=== PATIENT | male | born 1955 | race Caucasian/White ===

== ENCOUNTER 2016-08-23 08:35 | Inpatient (IN) | payer OTHER ==
[2016-08-23 10:19] VITALS: BMI 24.7
--- NOTE | 2016-08-23 11:23 | HP ---
COWS - Scale Resting Pulse: 0= SC 80 or Below Sweatin= Chills/Flushing Restless Observation: 3= Extraneous Movement Pupil Size: 2= Moderately Dilated Bone or Joint Aches: 4=Acute Joint/Muscle Pain Runny Nose/ Eye Tearin= Nasal Congestion GI Upset > 30mins: 3= Vomiting/Diarrhea Tremor Observation: 2= Slight Tremor Visible Yawning Observation: 1= 1-2x During Session Anxiety or Irritability: 1=Feels Anxious/Irritable Goose Flesh Skin: 0=Smooth Skin COWS Score: 18 Admission ROS S - HPI Chief Complaint: DETOX TX FOR HEROIN DEPENDENCE Allergies/Adverse Reactions: Allergies Allergy/AdvReac Type Severity Reaction Status Date / Time No Known Allergies Allergy Verified 08/23/16 10:07 History of Present Illness: 61 Y/O H/M WITH A HX OF HEROIN DEPENDENCE SEEKING DETOX [place]. Exam Limitations: No Limitations - Ebola screening Have you traveled outside of the country in the last 21 days: No Have you had contact with anyone from an Ebola affected area: No Have you been sick,other than usual withdrawal symptoms: No Do you have a fever: No - Review of Systems Constitutional: Chills, Loss of Appetite, Night Sweats, Changes in sleep, Unintentional Wgt. Loss EENT: reports: Blurred Vision (WEARS GLASSES), Tearing, Nose Congestion Respiratory: reports: No Symptoms reported Cardiac: reports: Lightheadedness GI: reports: Diarrhea, Nausea, Poor Appetite, Poor Fluid Intake, Vomiting, Abdominal cramping : reports: Dysuria Musculoskeletal: reports: Back Pain, Joint Pain, Muscle Pain Integumentary: reports: Bruising (IV DRUG TRACKS ON BOTH FOREARMS) Neuro: reports: Headache, Tremors, Unsteady Gait, Dizziness Endocrine: reports: No Symptoms Reported Hematology: reports: No Symptoms Reported Psychiatric: reports: Orientated x3, Agitated, Anxious Other Systems: Reviewed and Negative Patient History - Patient Medical History Hx Anemia: No Hx Asthma: No Hx Chronic Obstructive Pulmonary Disease (COPD): No Hx Cardiac Disorders: Yes ([place] X 4 ) Hx Hypertension: Yes (SOMETIMES LOW BP) Hx Hypercholesterolemia: No HX Cerebrovascular Accident: No Hx Seizures: No Hx Diabetes: No Hx Gastrointestinal Disorders: No Hx Genitourinary Disorders: No Hx Sexually Transmitted Disorders: No Hx Renal Disease (ESRD): No Hx Thyroid Disease: No Hx Human Immunodeficiency Virus (HIV): Yes (SINCE 1994;ON MED) Hx Hepatitis C: Yes (TREATED;UNDETECTABLE.) Hx Depression: No Hx Suicide Attempt: No (DENIES) Hx Schizophrenia: No - Patient Surgical History Past Surgical History: No Hx Neurologic Surgery: No Hx Cataract Extraction: No Hx Cardiac Surgery: No Hx Lung Surgery: No Hx Breast Surgery: No Hx Breast Biopsy: No Hx Abdominal Surgery: No Hx Appendectomy: No Hx Cholecystectomy: No Hx Genitourinary Surgery: No Hx Orthopedic Surgery: No Anesthesia Reaction: No - PPD History Previous Implant?: Yes Documented Results: Negative w/o proof Implanted On Prior R Admission?: No PPD to be Administered?: Yes - Reproductive History Patient is a Female of Child Bearing Age (11 -55 yrs old): No (MALE) - Smoking Cessation Smoking history: Current every day smoker Have you smoked in the past 12 months: Yes Aproximately how many cigarettes per day: 7 Hx Chewing Tobacco Use: No Initiated information on smoking cessation: Yes 'Breaking Loose' booklet given: 08/23/16 - Substance & Tx. History Hx Alcohol Use: No Hx Substance Use: Yes (HEROIN) Substance Use Type: Heroin Hx Substance Use Treatment: Yes ([facility] DETOX) - Substances Abused Heroin Route: Injection Frequency: Daily Amount used: 7-2 bags Age of first use: 17 Date of Last Use: 08/22/16 Family Disease History - Family Disease History Family Disease History: Diabetes: Father (HTN-), Mother (HTN-), Heart Disease: Grandparent (), Other: Father, Mother Admission Physical Exam S - Vital Signs Vital Signs: Vital Signs - 24 hr 08/23/16 10:10 Temperature 97.5 F L Pulse Rate 73 Respiratory 20 Rate Blood Pressure 106/63 - Physical General Appearance: Yes: Moderate Distress, Irritable, Anxious, Other HEENTM: Yes: EOMI, Normocephalic, MICHELLE, Pharynx Normal, Nasal Congestion, Rhinorrhea Respiratory: Yes: Chest Non-Tender, Lungs Clear, Normal Breath Sounds, No Respiratory Distress Neck: Yes: Supple, Trachea in good position Breast: Yes: Breast Exam Deferred Cardiology: Yes: Regular Rhythm, Regular Rate, S1, S2 Abdominal: Yes: Normal Bowel Sounds, Non Tender, Soft Genitourinary: Yes: Other (N/C) Back: Yes: Within Normal Limits Musculoskeletal: Yes: full range of Motion, Gait Steady Extremities: Yes: Normal Range of Motion, Non-Tender Neurological: Yes: 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 intact, Fully Oriented, Alert Integumentary: Yes: Dry, Warm, Track Chavez (BOTH FOREARMS.) Lymphatic: Yes: Within Normal Limits - Diagnostic (1) Opioid dependence with withdrawal Current Visit: Yes Status: Acute (2) History of hepatitis C Current Visit: Yes Status: Resolved (3) HIV (human immunodeficiency virus infection) Current Visit: Yes Status: Acute (4) Weight loss Current Visit: Yes Status: Acute (5) Hx of myocardial infarction Current Visit: Yes Status: Resolved Cleared for Admission [facility] - Detox or Rehab Detox Regimen/Protocol: Methadone [facility] Breath Alcohol Content Breath Alcohol Content: 0 Urine Drug Screen - Results Drug Screen Negative: No Urine Drug Screen Results: OPI-Opiates
[2016-08-23] MEDS ORDERED: ACETAMINOPHEN 325 MG TABLET (FP) PO PRN (11:35)
[2016-08-23] MEDS ORDERED: MENTHOL/PHENOL 1 EACH UD MM PRN (11:35)
[2016-08-23] MEDS ORDERED: NICOTINE POLACRILEX 2 MG GUM BUC PRN (11:35)
[2016-08-23] MEDS ORDERED: MAG HYDROX/AL HYDROX/SIMETH 30 ML UNIT-DOSE CUP PO PRN (11:35)
[2016-08-23] MEDS ORDERED: guaiFENesin/D-METHORPHAN HB 10 ML UNIT-DOSE CUPS PO PRN (11:35)
[2016-08-23] MEDS ORDERED: MAGNESIUM CITRATE 300 ML BOTTLE PO PRN (11:35)
[2016-08-23] MEDS ORDERED: IBUPROFEN 400 MG TABLET (FP) PO PRN (11:35)
[2016-08-23] MEDS ORDERED: P-EPHED 60MG/TRIPROLIDI 2.5MG TABLET PO PRN (11:35)
[2016-08-23] MEDS ORDERED: MAGNESIUM HYDROX 2400MG/30ML ORAL SUSPENSION 30 ML CUP PO PRN (11:35)
[2016-08-23] MEDS ORDERED: LOPERAMIDE HCL 2 MG CAPSULE PO PRN (11:35)
[2016-08-23] MEDS ORDERED: NITROGLYCERIN SUBLINGUAL 1/150 0.4 MG TAB SL SCH (11:45)
[2016-08-23] MEDS ORDERED: METHADONE HCL 10 MG TABLET (FOR DETOX USE ONLY) PO ONE ×2 (12:02→23:00)
[2016-08-23] MEDS: diazePAM 5 MG TABLET PO PRN ×2 (13:29→22:33)
[2016-08-23] MEDS: NICOTINE 14 MG/24 HOURS TOPICAL PATCH TD SCH (13:30)
[2016-08-23] MEDS: DARUNAVIR ETHANOLATE 600 MG TAB PO SCH (16:50)
[2016-08-23] MEDS: RITONAVIR 100 MG TABLET PO SCH (16:50)
[2016-08-23 19:56] LABS: URINE APPEARANCE CLEAR; URINE BILIRUBIN NEGATIVE (NEGATIVE); URINE BLOOD NEGATIVE (NEGATIVE); URINE COLOR STRAW; URINE GLUCOSE (UA) 1+ (NEGATIVE); URINE KETONE NEGATIVE (NEGATIVE); URINE LEUK ESTERASE NEGATIVE (NEGATIVE); URINE NITRITE NEGATIVE (NEGATIVE); URINE PROTEIN NEGATIVE (NEGATIVE); URINE UROBILINOGEN NEGATIVE E.U./dl (0.2-1.0)
[2016-08-23] MEDS: THIAMINE HCL 100 MG TABLET (FP) PO SCH (22:31)
[2016-08-23] MEDS: MARAVIROC 150 MG TAB PO SCH (22:31)
[2016-08-23] MEDS: ATORVASTATIN CA 20 MG TABLET (FP) PO SCH (22:32)
[2016-08-23] MEDS: RALTEGRAVIR POTASSIUM 400 MG TAB PO SCH (22:32)
[2016-08-23] MEDS: AMMONIUM LACTATE 12% LOTION 225 GM BOTTLE TP SCH (22:32)
[2016-08-23] MEDS: METOPROLOL TARTRATE 50 MG TABLET (FP) PO SCH (22:32)
--- NOTE | 2016-08-24 01:53 | PN ---
[facility] Progress Note (SOAP) Subjective: PT. C/O LEFT-SIDED ACHING CHEST PAIN X 1HR . Objective: 08/24/16 01:39 VS: 95/66, P. 73, SaO2: 100% ON ROOM AIR EKG: NSR ANTEROSEPTAL INFARCT Assessment: 08/24/16 02:05 PT. IS WAS FOUND IN BED, ALERT AND ORIENTED X 3 PAIN IS NON-RADIATING NO DYSPNEA, DIAPHORESIS OR BRUISING NOTED DENIES NAUSEA Plan: RN TO ADMINISTER NITROSTAT CONTINUE TO MONITOR
--- NOTE | 2016-08-24 07:21 | PN ---
[facility] Progress Note Note: VS STABLE NO COMPLAINTS OF CP REPORTED. Last Vital Signs Temp Pulse Resp BP Pulse Ox 97.3 F L 68 16 94/64 08/24/16 06:27 08/24/16 06:27 08/24/16 06:27 08/24/16 06:27
[2016-08-24] MEDS: RITONAVIR 100 MG TABLET PO SCH ×2 (08:50→18:23)
[2016-08-24] MEDS: DARUNAVIR ETHANOLATE 600 MG TAB PO SCH ×2 (08:50→18:23)
[2016-08-24] MEDS ORDERED: METHADONE HCL 10 MG TABLET (FOR DETOX USE ONLY) PO ONE (10:00)
[2016-08-24] MEDS ORDERED: FENOFIBRATE NANOCRYSTALLIZED 54 MG PO SCH (10:00)
[2016-08-24 10:48] LABS: MCHC 34.1 g/dl (32.0-35.9); MEAN CELL VOLUME 87.8 fl (80-96); MEAN PLT VOLUME 10.7 fl (7.5-11.1); PLATELET COUNT 167 K/MM3 (134-434); RDW 13.8 % (11.9-15.9); WHITE BLOOD COUNT 5.6 K/mm3 (4.0-10.0)
[2016-08-24] MEDS: PRENATAL VITAMINS W/ FOLIC ACID TABLET (FP) PO SCH (10:49)
[2016-08-24] MEDS: CLOPIDOGREL BISULFATE 75 MG TABLET (FP) PO SCH (10:49)
[2016-08-24] MEDS: RALTEGRAVIR POTASSIUM 400 MG TAB PO SCH ×2 (10:49→22:31)
[2016-08-24] MEDS: ASPIRIN 81 MG CHEWABLE TABLETS PO SCH (10:49)
[2016-08-24] MEDS: METOPROLOL TARTRATE 50 MG TABLET (FP) PO SCH ×2 (10:51→22:30)
[2016-08-24] MEDS: AMMONIUM LACTATE 12% LOTION 225 GM BOTTLE TP SCH ×2 (10:51→22:31)
[2016-08-24] MEDS: MARAVIROC 150 MG TAB PO SCH ×2 (10:51→22:31)
[2016-08-24] MEDS: LISINOPRIL 5 MG TABLET (FP) PO SCH (10:51)
[2016-08-24] MEDS: NICOTINE 14 MG/24 HOURS TOPICAL PATCH TD SCH (10:53)
[2016-08-24 11:15] LABS: SICKLE CELL SCREEN POSITIVE (NEGATIVE)
[2016-08-24 11:29] LABS: ALBUMIN 3.8 g/dl (3.4-5.0); BILIRUBIN,TOTAL 0.3 mg/dL (0.2-1.0); CALCIUM 9.2 mg/dL (8.5-10.1); COCKROFT - GAULT 38.8; CREATININE 1.8 mg/dL (0.7-1.3); TOT PROT 6.9 g/dl (6.4-8.2)
--- NOTE | 2016-08-24 12:16 | PN ---
S COWS - Scale Resting Pulse: 0= [place] 80 or Below Sweatin=Flushed/Facial Moisture Restless Observation: 1= Difficult to Sit Still Pupil Size: 0= Normal to Room Light Bone or Joint Aches: 1= Mild Discomfort Runny Nose/ Eye Tearin= Nasal Congestion GI Upset > 30mins: 2= Nausea/Diarrhea Tremor Observation of Outstretched Hands: 2= Slight Tremor Visible Yawning Observation: 0= None Anxiety or Irritability: 1=Feels Anxious/Irritable Goose Flesh Skin: 3=Piloerection COWS Score: 13 [facility] Progress Note (SOAP) Subjective: sweats, anxiety, abdominal cramps Objective: 08/24/16 12:17 Vital Signs - 8 hr 08/24/16 06:27 Temperature 97.3 F L Pulse Rate 68 Respiratory 16 Rate Blood Pressure 94/64 Laboratory Last Values WBC 5.6 K/mm3 (4.0-10.0) 08/24/16 06:00 RBC 4.19 M/mm3 (4.00-5.60) 08/24/16 06:00 Hgb 12.5 GM/dL (11.7-16.9) 08/24/16 06:00 Hct 36.8 % (35.4-49) 08/24/16 06:00 MCV 87.8 fl (80-96) 08/24/16 06:00 MCHC 34.1 g/dl (32.0-35.9) 08/24/16 06:00 RDW 13.8 % (11.9-15.9) 08/24/16 06:00 Plt Count 167 K/MM3 (134-434) 08/24/16 06:00 MPV 10.7 fl (7.5-11.1) 08/24/16 06:00 Sickle Cell Screen Positive (NEGATIVE) 08/24/16 06:00 Sodium 136 mmol/L (136-145) 08/24/16 06:00 Potassium 4.8 mmol/L (3.5-5.1) 08/24/16 06:00 Chloride 102 mmol/L (98-107) 08/24/16 06:00 Carbon Dioxide 23 mmol/L (21-32) 08/24/16 06:00 Anion Gap 11 (8-16) 08/24/16 06:00 BUN 28 mg/dL (7-18) H 08/24/16 06:00 Creatinine 1.8 mg/dL (0.7-1.3) H 08/24/16 06:00 Creat Clearance w eGFR 38.30 (>60) 08/24/16 06:00 Random Glucose 83 mg/dL (74-106) 08/24/16 06:00 Calcium 9.2 mg/dL (8.5-10.1) 08/24/16 06:00 Total Bilirubin 0.3 mg/dL (0.2-1.0) 08/24/16 06:00 AST 24 U/L (15-37) 08/24/16 06:00 ALT 20 U/L (12-78) 08/24/16 06:00 Alkaline Phosphatase 71 U/L (45-117) 08/24/16 06:00 Total Protein 6.9 g/dl (6.4-8.2) 08/24/16 06:00 Albumin 3.8 g/dl (3.4-5.0) 08/24/16 06:00 Urine Color Straw 08/23/16 19:35 Urine Appearance Clear 08/23/16 19:35 Urine pH 5.0 (5.0-8.0) 08/23/16 19:35 Ur Specific [place] 1.010 (1.005-1.025) 08/23/16 19:35 Urine Protein Negative (NEGATIVE) 08/23/16 19:35 Urine Glucose (UA) 1+ (NEGATIVE) H 08/23/16 19:35 Urine Ketones Negative (NEGATIVE) 08/23/16 19:35 Urine Blood Negative (NEGATIVE) 08/23/16 19:35 Urine Nitrite Negative (NEGATIVE) 08/23/16 19:35 Urine Bilirubin Negative (NEGATIVE) 08/23/16 19:35 Urine Urobilinogen Negative E.U./dl (0.2-1.0) 08/23/16 19:35 Ur Leukocyte Esterase Negative (NEGATIVE) 08/23/16 19:35 labs noted Assessment: 08/24/16 12:17 withdrawal sx Plan: continue detox
--- NOTE | 2016-08-24 13:22 | PN ---
S Progress Note Note: Fenofibrate 54mg discontinued, not available in house, 45mg ordered
[2016-08-24] MEDS: FENOFIBRIC ACID 45 MG CAP PO SCH (14:30)
[2016-08-24] MEDS: THIAMINE HCL 100 MG TABLET (FP) PO SCH (22:30)
[2016-08-24] MEDS: ATORVASTATIN CA 20 MG TABLET (FP) PO SCH (22:30)
[2016-08-24] MEDS: diazePAM 5 MG TABLET PO PRN (22:30)
[2016-08-25] MEDS ORDERED: METHADONE HCL 5 MG TABLET (FOR DETOX USE ONLY) PO ONE (10:00)
[2016-08-25] MEDS: FENOFIBRIC ACID 45 MG CAP PO SCH (10:41)
[2016-08-25] MEDS: RITONAVIR 100 MG TABLET PO SCH ×2 (10:43→17:54)
[2016-08-25] MEDS: PRENATAL VITAMINS W/ FOLIC ACID TABLET (FP) PO SCH (10:43)
[2016-08-25] MEDS: RALTEGRAVIR POTASSIUM 400 MG TAB PO SCH ×2 (10:43→22:48)
[2016-08-25] MEDS: MARAVIROC 150 MG TAB PO SCH ×2 (10:43→22:48)
[2016-08-25] MEDS: DARUNAVIR ETHANOLATE 600 MG TAB PO SCH ×2 (10:43→17:54)
[2016-08-25] MEDS: METOPROLOL TARTRATE 50 MG TABLET (FP) PO SCH ×2 (10:43→22:48)
[2016-08-25] MEDS: ASPIRIN 81 MG CHEWABLE TABLETS PO SCH (10:43)
[2016-08-25] MEDS: CLOPIDOGREL BISULFATE 75 MG TABLET (FP) PO SCH (10:44)
[2016-08-25] MEDS: LISINOPRIL 5 MG TABLET (FP) PO SCH (10:44)
[2016-08-25] MEDS: AMMONIUM LACTATE 12% LOTION 225 GM BOTTLE TP SCH ×2 (10:45→23:22)
[2016-08-25] MEDS: NICOTINE 14 MG/24 HOURS TOPICAL PATCH TD SCH (10:45)
[2016-08-25] MEDS: diazePAM 5 MG TABLET PO PRN ×3 (10:46→22:51)
--- NOTE | 2016-08-25 14:47 | PN ---
S COWS - Scale Resting Pulse: 0= MD 80 or Below Sweatin= Chills/Flushing Restless Observation: 3= Extraneous Movement Pupil Size: 1= Pupils >than Normal Bone or Joint Aches: 2= Severe Diffuse Aches Runny Nose/ Eye Tearin= Runny Nose/Eyes GI Upset > 30mins: 2= Nausea/Diarrhea Tremor Observation of Outstretched Hands: 2= Slight Tremor Visible Yawning Observation: 1= 1-2x During Session Anxiety or Irritability: 2=Irritable/Anxious Goose Flesh Skin: 0=Smooth Skin COWS Score: 16 S Progress Note (SOAP) Subjective: Body ache, tremor, chills, nausea, interrupted sleep Objective: 08/25/16 14:43 Last Vital Signs Temp Pulse Resp BP Pulse Ox 96.6 F L 69 18 106/74 08/25/16 13:46 08/25/16 13:46 08/25/16 13:46 08/25/16 13:46 Laboratory Tests 08/23/16 08/24/16 08/24/16 19:35 06:00 06:00 WBC 5.6 RBC 4.19 Hgb 12.5 Hct 36.8 MCV 87.8 MCHC 34.1 RDW 13.8 Plt Count 167 MPV 10.7 Sickle Cell Screen Positive Sodium 136 Potassium 4.8 Chloride 102 Carbon Dioxide 23 Anion Gap 11 BUN 28 H Creatinine 1.8 H Creat Clearance w eGFR 38.30 Random Glucose 83 Calcium 9.2 Total Bilirubin 0.3 AST 24 ALT 20 Alkaline Phosphatase 71 Total Protein 6.9 Albumin 3.8 Urine Color Straw Urine Appearance Clear Urine pH 5.0 Ur Specific [place] 1.010 Urine Protein Negative Urine Glucose (UA) 1+ H Urine Ketones Negative Urine Blood Negative Urine Nitrite Negative Urine Bilirubin Negative Urine Urobilinogen Negative Ur Leukocyte Esterase Negative RPR Titer 08/24/16 06:00 WBC RBC Hgb Hct MCV MCHC RDW Plt Count MPV Sickle Cell Screen Sodium Potassium Chloride Carbon Dioxide Anion Gap BUN Creatinine Creat Clearance w eGFR Random Glucose Calcium Total Bilirubin AST ALT Alkaline Phosphatase Total Protein Albumin Urine Color Urine Appearance Urine pH Ur Specific [place] Urine Protein Urine Glucose (UA) Urine Ketones Urine Blood Urine Nitrite Urine Bilirubin Urine Urobilinogen Ur Leukocyte Esterase RPR Titer Nonreactive Labs noted: bun 28, serum creatinine 1.8, UA: 1+ glucose Assessment: 08/25/16 14:45 Withdrawal symptoms Noted with STACY and mild glycosuria Plan: Continue detox STACY: encouraged to drink lots of water (water pitcher provided), repeat BMP Glycosuria: encouraged to drink lots of water, repeat UA
[2016-08-25] MEDS: THIAMINE HCL 100 MG TABLET (FP) PO SCH (22:48)
[2016-08-25] MEDS: ATORVASTATIN CA 20 MG TABLET (FP) PO SCH (22:48)
[2016-08-25] MEDS: diphenhydrAMINE HCL 50 MG CAPSULE PO PRN (22:50)
--- NOTE | 2016-08-25 23:16 | EKG ---
Test Reason : Blood Pressure : / mmHG Vent. Rate : 058 BPM Atrial Rate : 058 BPM P-R Int : 132 ms QRS Dur : 088 ms QT Int : 386 ms P-R-T Axes : 081 065 064 degrees QTc Int : 378 ms SINUS BRADYCARDIA WITH SINUS ARRHYTHMIA SEPTAL INFARCT , AGE UNDETERMINED ABNORMAL ECG NO PREVIOUS ECGS AVAILABLE Confirmed by YOUSIF HODGE MD ([id number]) on 08/25/2016 11:15:52 PM Referred By: Confirmed By:YOUSIF HODGE MD
[2016-08-26] MEDS: diphenhydrAMINE HCL 50 MG CAPSULE PO PRN ×2 (00:39→22:27)
[2016-08-26] MEDS: diazePAM 5 MG TABLET PO PRN ×2 (03:16→10:32)
[2016-08-26] MEDS: DARUNAVIR ETHANOLATE 600 MG TAB PO SCH ×2 (09:10→17:22)
[2016-08-26] MEDS: RITONAVIR 100 MG TABLET PO SCH ×2 (09:10→17:22)
[2016-08-26] MEDS: RALTEGRAVIR POTASSIUM 400 MG TAB PO SCH ×2 (09:11→22:25)
[2016-08-26] MEDS ORDERED: METHADONE HCL 5 MG TABLET (FOR DETOX USE ONLY) PO ONE (10:00)
[2016-08-26] MEDS: METOPROLOL TARTRATE 50 MG TABLET (FP) PO SCH ×2 (10:32→22:25)
[2016-08-26] MEDS: LISINOPRIL 5 MG TABLET (FP) PO SCH (10:32)
[2016-08-26] MEDS: ASPIRIN 81 MG CHEWABLE TABLETS PO SCH (10:32)
[2016-08-26] MEDS: CLOPIDOGREL BISULFATE 75 MG TABLET (FP) PO SCH (10:32)
[2016-08-26] MEDS: PRENATAL VITAMINS W/ FOLIC ACID TABLET (FP) PO SCH (10:32)
[2016-08-26] MEDS: NICOTINE 14 MG/24 HOURS TOPICAL PATCH TD SCH (10:32)
[2016-08-26] MEDS: MARAVIROC 150 MG TAB PO SCH ×2 (10:33→22:27)
[2016-08-26] MEDS: FENOFIBRIC ACID 45 MG CAP PO SCH (10:33)
[2016-08-26] MEDS: AMMONIUM LACTATE 12% LOTION 225 GM BOTTLE TP SCH ×2 (12:18→22:25)
--- NOTE | 2016-08-26 13:52 | PN ---
[facility] Progress Note (SOAP) Subjective: Stomach ache, diarrhea, interrupted sleep, sweating, tremor Objective: 08/26/16 13:48 Last Vital Signs Temp Pulse Resp BP Pulse Ox 96.7 F L 75 18 101/68 08/26/16 13:26 08/26/16 13:26 08/26/16 13:26 08/26/16 13:26 Laboratory Tests 08/23/16 08/24/16 08/24/16 19:35 06:00 06:00 WBC 5.6 RBC 4.19 Hgb 12.5 Hct 36.8 MCV 87.8 MCHC 34.1 RDW 13.8 Plt Count 167 MPV 10.7 Sickle Cell Screen Positive Sodium 136 Potassium 4.8 Chloride 102 Carbon Dioxide 23 Anion Gap 11 BUN 28 H Creatinine 1.8 H Creat Clearance w eGFR 38.30 Random Glucose 83 Calcium 9.2 Total Bilirubin 0.3 AST 24 ALT 20 Alkaline Phosphatase 71 Total Protein 6.9 Albumin 3.8 Urine Color Straw Urine Appearance Clear Urine pH 5.0 Ur Specific [place] 1.010 Urine Protein Negative Urine Glucose (UA) 1+ H Urine Ketones Negative Urine Blood Negative Urine Nitrite Negative Urine Bilirubin Negative Urine Urobilinogen Negative Ur Leukocyte Esterase Negative RPR Titer 08/24/16 06:00 WBC RBC Hgb Hct MCV MCHC RDW Plt Count MPV Sickle Cell Screen Sodium Potassium Chloride Carbon Dioxide Anion Gap BUN Creatinine Creat Clearance w eGFR Random Glucose Calcium Total Bilirubin AST ALT Alkaline Phosphatase Total Protein Albumin Urine Color Urine Appearance Urine pH Ur Specific [place] Urine Protein Urine Glucose (UA) Urine Ketones Urine Blood Urine Nitrite Urine Bilirubin Urine Urobilinogen Ur Leukocyte Esterase RPR Titer Nonreactive Labs noted Assessment: 08/26/16 13:49 Withdrawal symptoms Noted with STACY and glycosuria Plan: Continue detox STACY: encouraged to drink more water, follow up on BMP result (in progress), hold lisinopril and HAART if serum creatinine still high Glycosuria: encouraged to drink more water, follow up on repeated UA (in progress)
[2016-08-26 14:18] LABS: URINE APPEARANCE CLEAR; URINE BILIRUBIN NEGATIVE (NEGATIVE); URINE BLOOD NEGATIVE (NEGATIVE); URINE COLOR COLORLESS; URINE GLUCOSE (UA) NEGATIVE (NEGATIVE); URINE KETONE NEGATIVE (NEGATIVE); URINE LEUK ESTERASE NEGATIVE (NEGATIVE); URINE NITRITE NEGATIVE (NEGATIVE); URINE PROTEIN NEGATIVE (NEGATIVE); URINE UROBILINOGEN NEGATIVE E.U./dl (0.2-1.0)
[2016-08-26 14:21] LABS: CALCIUM 8.4 mg/dL (8.5-10.1); COCKROFT - GAULT 43.65; CREATININE 1.6 mg/dL (0.7-1.3)
[2016-08-26] MEDS: THIAMINE HCL 100 MG TABLET (FP) PO SCH (22:25)
[2016-08-26] MEDS: ATORVASTATIN CA 20 MG TABLET (FP) PO SCH (22:25)
--- NOTE | 2016-08-27 08:56 | PN ---
[facility] Progress Note (SOAP) Subjective: Sweating,interrupted sleep,restless Objective: 08/27/16 08:55 Vital Signs - 8 hr 08/27/16 08/27/16 03:34 06:16 Temperature 98.4 F Pulse Rate 78 Respiratory 18 18 Rate Blood Pressure 98/69 Laboratory Last Values WBC 5.6 K/mm3 (4.0-10.0) 08/24/16 06:00 RBC 4.19 M/mm3 (4.00-5.60) 08/24/16 06:00 Hgb 12.5 GM/dL (11.7-16.9) 08/24/16 06:00 Hct 36.8 % (35.4-49) 08/24/16 06:00 MCV 87.8 fl (80-96) 08/24/16 06:00 MCHC 34.1 g/dl (32.0-35.9) 08/24/16 06:00 RDW 13.8 % (11.9-15.9) 08/24/16 06:00 Plt Count 167 K/MM3 (134-434) 08/24/16 06:00 MPV 10.7 fl (7.5-11.1) 08/24/16 06:00 Sickle Cell Screen Positive (NEGATIVE) 08/24/16 06:00 Sodium 138 mmol/L (136-145) 08/26/16 07:12 Potassium 4.6 mmol/L (3.5-5.1) 08/26/16 07:12 Chloride 101 mmol/L (98-107) 08/26/16 07:12 Carbon Dioxide 28 mmol/L (21-32) D 08/26/16 07:12 Anion Gap 9 (8-16) 08/26/16 07:12 BUN 15 mg/dL (7-18) D 08/26/16 07:12 Creatinine 1.6 mg/dL (0.7-1.3) H 08/26/16 07:12 Creat Clearance w eGFR 38.30 (>60) 08/24/16 06:00 Random Glucose 76 mg/dL (74-106) 08/26/16 07:12 Calcium 8.4 mg/dL (8.5-10.1) L 08/26/16 07:12 Total Bilirubin 0.3 mg/dL (0.2-1.0) 08/24/16 06:00 AST 24 U/L (15-37) 08/24/16 06:00 ALT 20 U/L (12-78) 08/24/16 06:00 Alkaline Phosphatase 71 U/L (45-117) 08/24/16 06:00 Total Protein 6.9 g/dl (6.4-8.2) 08/24/16 06:00 Albumin 3.8 g/dl (3.4-5.0) 08/24/16 06:00 Urine Color Colorless 08/26/16 08:00 Urine Appearance Clear 08/26/16 08:00 Urine pH 8.0 (5.0-8.0) D 08/26/16 08:00 Ur Specific [place] 1.015 (1.005-1.025) 08/26/16 08:00 Urine Protein Negative (NEGATIVE) 08/26/16 08:00 Urine Glucose (UA) Negative (NEGATIVE) 08/26/16 08:00 Urine Ketones Negative (NEGATIVE) 08/26/16 08:00 Urine Blood Negative (NEGATIVE) 08/26/16 08:00 Urine Nitrite Negative (NEGATIVE) 08/26/16 08:00 Urine Bilirubin Negative (NEGATIVE) 08/26/16 08:00 Urine Urobilinogen Negative E.U./dl (0.2-1.0) 08/26/16 08:00 Ur Leukocyte Esterase Negative (NEGATIVE) 08/26/16 08:00 RPR Titer Nonreactive (NONREACTIVE) 08/24/16 06:00 labs noted Assessment: 08/27/16 08:56 Withdrawal sx. Plan: Continue detox
[2016-08-27] MEDS: MARAVIROC 150 MG TAB PO SCH ×2 (09:58→22:36)
[2016-08-27] MEDS: RITONAVIR 100 MG TABLET PO SCH ×2 (09:58→17:14)
[2016-08-27] MEDS: PRENATAL VITAMINS W/ FOLIC ACID TABLET (FP) PO SCH (09:58)
[2016-08-27] MEDS: ASPIRIN 81 MG CHEWABLE TABLETS PO SCH (09:58)
[2016-08-27] MEDS: CLOPIDOGREL BISULFATE 75 MG TABLET (FP) PO SCH (09:59)
[2016-08-27] MEDS: RALTEGRAVIR POTASSIUM 400 MG TAB PO SCH ×2 (09:59→22:35)
[2016-08-27] MEDS: METOPROLOL TARTRATE 50 MG TABLET (FP) PO SCH ×2 (09:59→22:36)
[2016-08-27] MEDS: LISINOPRIL 5 MG TABLET (FP) PO SCH (09:59)
[2016-08-27] MEDS: hydrOXYzine PAMOATE 50 MG CAPSULE (FP) PO PRN (09:59)
[2016-08-27] MEDS: DARUNAVIR ETHANOLATE 600 MG TAB PO SCH ×2 (10:00→17:15)
[2016-08-27] MEDS ORDERED: METHADONE HCL 10 MG TABLET (FOR DETOX USE ONLY) PO ONE (10:00)
[2016-08-27] MEDS: FENOFIBRATE 54 MG PO SCH (10:01)
[2016-08-27] MEDS: NICOTINE 14 MG/24 HOURS TOPICAL PATCH TD SCH (10:01)
[2016-08-27] MEDS: AMMONIUM LACTATE 12% LOTION 225 GM BOTTLE TP SCH ×2 (10:01→22:36)
[2016-08-27] MEDS: ATORVASTATIN CA 20 MG TABLET (FP) PO SCH (22:35)
[2016-08-27] MEDS: THIAMINE HCL 100 MG TABLET (FP) PO SCH (22:35)
[2016-08-27] MEDS: diphenhydrAMINE HCL 50 MG CAPSULE PO PRN (22:37)
[2016-08-28] MEDS: hydrOXYzine PAMOATE 50 MG CAPSULE (FP) PO PRN (05:49)
[2016-08-28] MEDS ORDERED: METHADONE HCL 5 MG TABLET (FOR DETOX USE ONLY) PO ONE (06:00)
[2016-08-28 06:38] VITALS: BP 100/75; PULSE 77; TEMP 98.8
[2016-08-28] MEDS: DARUNAVIR ETHANOLATE 600 MG TAB PO SCH (09:21)
[2016-08-28] MEDS: AMMONIUM LACTATE 12% LOTION 225 GM BOTTLE TP SCH (09:21)
[2016-08-28] MEDS: RITONAVIR 100 MG TABLET PO SCH (09:22)
[2016-08-28] MEDS: LISINOPRIL 5 MG TABLET (FP) PO SCH (09:23)
[2016-08-28] MEDS: RALTEGRAVIR POTASSIUM 400 MG TAB PO SCH (09:23)
[2016-08-28] MEDS: METOPROLOL TARTRATE 50 MG TABLET (FP) PO SCH (09:23)
[2016-08-28] MEDS: PRENATAL VITAMINS W/ FOLIC ACID TABLET (FP) PO SCH (09:23)
[2016-08-28] MEDS: CLOPIDOGREL BISULFATE 75 MG TABLET (FP) PO SCH (09:23)
[2016-08-28] MEDS: ASPIRIN 81 MG CHEWABLE TABLETS PO SCH (09:23)
[2016-08-28] MEDS: MARAVIROC 150 MG TAB PO SCH ×2 (09:24→09:25)
[2016-08-28] MEDS: FENOFIBRATE 54 MG PO SCH (09:24)
[2016-08-28] MEDS: NICOTINE 14 MG/24 HOURS TOPICAL PATCH TD SCH (09:24)
--- NOTE | 2016-08-28 11:57 | EKG ---
Test Reason : Blood Pressure : / mmHG Vent. Rate : 070 BPM Atrial Rate : 070 BPM P-R Int : 146 ms QRS Dur : 082 ms QT Int : 368 ms P-R-T Axes : 080 056 037 degrees QTc Int : 397 ms NORMAL SINUS RHYTHM SEPTAL INFARCT (CITED ON OR BEFORE 23-AUG-2016) ABNORMAL ECG WHEN COMPARED WITH ECG OF 23-AUG-2016 23:46, NO SIGNIFICANT CHANGE WAS FOUND Confirmed by RENÉ HERNANDEZ, BIANCA ([id number]) on 08/28/2016 11:56:51 AM Referred By: Samuel Claros Confirmed By:BIANCA MERRITT MD
--- NOTE | 2016-08-28 12:20 | DS ---
[facility] Detox Discharge Summary Admission Date: 08/23/16 Discharge Date: 08/28/16 - History Present History: Opioid Dependence Pertinent Past History: HIV infection Hep C - Physical Exam Results Vital Signs: Vital Signs Temperature 98.8 F 08/28/16 06:38 Pulse Rate 77 08/28/16 06:38 Respiratory Rate 18 08/28/16 06:38 Blood Pressure 100/75 08/28/16 06:38 O2 Sat by Pulse Oximetry (%) Pertinent Admission Physical Exam Findings: Withdrawal sx. Laboratory Last Values WBC 5.6 K/mm3 (4.0-10.0) 08/24/16 06:00 RBC 4.19 M/mm3 (4.00-5.60) 08/24/16 06:00 Hgb 12.5 GM/dL (11.7-16.9) 08/24/16 06:00 Hct 36.8 % (35.4-49) 08/24/16 06:00 MCV 87.8 fl (80-96) 08/24/16 06:00 MCHC 34.1 g/dl (32.0-35.9) 08/24/16 06:00 RDW 13.8 % (11.9-15.9) 08/24/16 06:00 Plt Count 167 K/MM3 (134-434) 08/24/16 06:00 MPV 10.7 fl (7.5-11.1) 08/24/16 06:00 Sickle Cell Screen Positive (NEGATIVE) 08/24/16 06:00 Sodium 138 mmol/L (136-145) 08/26/16 07:12 Potassium 4.6 mmol/L (3.5-5.1) 08/26/16 07:12 Chloride 101 mmol/L (98-107) 08/26/16 07:12 Carbon Dioxide 28 mmol/L (21-32) D 08/26/16 07:12 Anion Gap 9 (8-16) 08/26/16 07:12 BUN 15 mg/dL (7-18) D 08/26/16 07:12 Creatinine 1.6 mg/dL (0.7-1.3) H 08/26/16 07:12 Creat Clearance w eGFR 38.30 (>60) 08/24/16 06:00 Random Glucose 76 mg/dL (74-106) 08/26/16 07:12 Calcium 8.4 mg/dL (8.5-10.1) L 08/26/16 07:12 Total Bilirubin 0.3 mg/dL (0.2-1.0) 08/24/16 06:00 AST 24 U/L (15-37) 08/24/16 06:00 ALT 20 U/L (12-78) 08/24/16 06:00 Alkaline Phosphatase 71 U/L (45-117) 08/24/16 06:00 Total Protein 6.9 g/dl (6.4-8.2) 08/24/16 06:00 Albumin 3.8 g/dl (3.4-5.0) 08/24/16 06:00 Urine Color Colorless 08/26/16 08:00 Urine Appearance Clear 08/26/16 08:00 Urine pH 8.0 (5.0-8.0) D 08/26/16 08:00 Ur Specific [place] 1.015 (1.005-1.025) 08/26/16 08:00 Urine Protein Negative (NEGATIVE) 08/26/16 08:00 Urine Glucose (UA) Negative (NEGATIVE) 08/26/16 08:00 Urine Ketones Negative (NEGATIVE) 08/26/16 08:00 Urine Blood Negative (NEGATIVE) 08/26/16 08:00 Urine Nitrite Negative (NEGATIVE) 08/26/16 08:00 Urine Bilirubin Negative (NEGATIVE) 08/26/16 08:00 Urine Urobilinogen Negative E.U./dl (0.2-1.0) 08/26/16 08:00 Ur Leukocyte Esterase Negative (NEGATIVE) 08/26/16 08:00 RPR Titer Nonreactive (NONREACTIVE) 08/24/16 06:00 labs noted - Treatment Hospital Course: Detox Protocol Followed, Detoxed Safely, Responded well, Discharged Condition Good, Rehab Referral Accepted Patient has Accepted a Rehab Referral to: Self Help groups - Medication Discharge Medications: Ambulatory Orders Ammonium Lactate Lotion [Lac-Hydrin 12% Lotion -] 1 applic TP BID 08/23/16 Aspirin [ASA -] 81 mg PO DAILY 08/23/16 Atorvastatin Ca [Lipitor] 20 mg PO HS 08/23/16 Clopidogrel Bisulfate [Clopidogrel] 75 mg PO DAILY 08/23/16 Darunavir Ethanolate [Prezista -] 600 mg PO BID 08/23/16 Fenofibrate Nanocrystallized [Fenofibrate] 54 mg PO DAILY 08/23/16 Lisinopril [Zestril] 2.5 mg PO DAILY 08/23/16 Maraviroc [Selzentry -] 150 mg PO BID 08/23/16 Metoprolol Tartrate [Lopressor -] 50 mg PO BID 08/23/16 Nitroglycerin Sublingual [Nitrostat -] 0.4 mg SL PRN 08/23/16 Raltegravir [Isentress -] 400 mg PO BID 08/23/16 Ritonavir [Norvir -] 100 mg PO BID 08/23/16 - Diagnosis (1) HIV (human immunodeficiency virus infection) Status: Acute (2) Opioid dependence with withdrawal Status: Acute (3) Hep C w/o coma, chronic Status: Acute - AMA Did Patient Leave Against Medical Advice: No
[2016-09-11 14:15] LABS: Hgb A2 4.1
== END 2016-08-28 09:30 | disposition home or self-care (01) | DRG 897 ==
LOC: YASAS 08:35 → Y3N 11:54
PROVIDERS: ADMIT Internal Medicine; ATTEND Internal Medicine
PROC: HZ2ZZZZ Detoxification Services for Substance Abuse Treatment (ICD-10-PCS; principal; 2016-08-28)
DX: F11.23 Opioid dependence with withdrawal (principal); F17.210 Nicotine dependence, cigarettes, uncomplicated; I25.2 Old myocardial infarction; I10 Essential (primary) hypertension; B18.2 Chronic viral hepatitis C; Z21 Asymptomatic human immunodeficiency virus [HIV] infection status; R63.4 Abnormal weight loss; Z68.24 Body mass index [BMI] 24.0-24.9, adult
CPT/HCPCS: 36415; 80048; 80053; 81003; 83021; 85027; 85660; 86593; 93005; 93010

== ENCOUNTER 2016-11-13 08:31 | Inpatient (IN) | payer OTHER ==
[2016-11-13 09:53] VITALS: BMI 25.9
--- NOTE | 2016-11-13 11:58 | HP ---
COWS - Scale Resting Pulse: 0= [place] 80 or Below Sweatin= Chills/Flushing Restless Observation: 3= Extraneous Movement Pupil Size: 2= Moderately Dilated Bone or Joint Aches: 4=Acute Joint/Muscle Pain Runny Nose/ Eye Tearin= Runny Nose/Eyes GI Upset > 30mins: 2= Nausea/Diarrhea (nausea/stomach cramps) Tremor Observation: 1= Tremor [place], Not Seen Yawning Observation: 1= 1-2x During Session Anxiety or Irritability: 2=Irritable/Anxious Goose Flesh Skin: 0=Smooth Skin COWS Score: 18 Admission ROS BHS - HPI Chief Complaint: DETOX TX FOR HEROIN DEPENDENCE Allergies/Adverse Reactions: Allergies Allergy/AdvReac Type Severity Reaction Status Date / Time No Known Allergies Allergy Verified 08/23/16 10:07 History of Present Illness: 61 Y/O H/M WITH A HX OF HEROIN DEPENDENCE SEEKING DETOX [place] Exam Limitations: No Limitations - Ebola screening Have you traveled outside of the country in the last 21 days: No Have you had contact with anyone from an Ebola affected area: No Have you been sick,other than usual withdrawal symptoms: No Do you have a fever: No - Review of Systems Constitutional: Chills, Loss of Appetite, Night Sweats, Changes in sleep, Unintentional Wgt. Loss EENT: reports: Blurred Vision (WEARS GLASSES), Dental Problems Respiratory: reports: No Symptoms reported Cardiac: reports: Lightheadedness GI: reports: Constipated, Diarrhea, Nausea, Poor Appetite, Poor Fluid Intake, Vomiting, Indigestion, Abdominal cramping : reports: Dysuria (SOMETIMES) Musculoskeletal: reports: Back Pain, Joint Pain, Muscle Pain Integumentary: reports: Bruising (IVD INJ TRACKS) Neuro: reports: Headache Endocrine: reports: No Symptoms Reported Hematology: reports: Anemia Psychiatric: reports: Orientated x3, Anxious Other Systems: Reviewed and Negative Patient History - Patient Medical History Hx Anemia: No Hx Asthma: No Hx Chronic Obstructive Pulmonary Disease (COPD): No Hx Cardiac Disorders: Yes (stent-2015) Hx Hypertension: Yes (ON MED) Hx Hypercholesterolemia: No HX Cerebrovascular Accident: No Hx Seizures: No Hx Diabetes: No Hx Gastrointestinal Disorders: No Hx Genitourinary Disorders: No Hx Sexually Transmitted Disorders: No Hx Renal Disease (ESRD): No Hx Thyroid Disease: No Hx Human Immunodeficiency Virus (HIV): Yes (SINCE 1994;ON MED) Hx Hepatitis C: Yes (TREATED;UNDETECTABLE.) Hx Depression: No Hx Suicide Attempt: No (DENIES) Hx Schizophrenia: No - Patient Surgical History Past Surgical History: No Hx Neurologic Surgery: No Hx Cataract Extraction: No Hx Cardiac Surgery: Yes (- 2016) Hx Lung Surgery: No Hx Breast Surgery: No Hx Breast Biopsy: No Hx Abdominal Surgery: No Hx Appendectomy: No Hx Cholecystectomy: No Hx Genitourinary Surgery: No Hx Orthopedic Surgery: No Anesthesia Reaction: No - PPD History Previous Implant?: Yes Documented Results: Negative w/proof Implanted On Prior [facility] Admission?: Yes Date: 08/25/16 PPD to be Administered?: No - Reproductive History Patient is a Female of Child Bearing Age (11 -55 yrs old): No (MALE) Patient : (N/A) - Smoking Cessation Smoking history: Current every day smoker Have you smoked in the past 12 months: Yes Aproximately how many cigarettes per day: 7 Hx Chewing Tobacco Use: No Initiated information on smoking cessation: Yes 'Breaking Loose' booklet given: 11/13/16 - Substance & Tx. History Hx Alcohol Use: Yes (SOMETIMES) Hx Substance Use: Yes (HEROIN) Hx Substance Use Treatment: Yes (LAST TX AT [facility] DETOX) - Substances Abused Heroin Route: Injection Frequency: Daily Amount used: 3-4 bags Age of first use: 17 Date of Last Use: 11/12/16 Family Disease History - Family Disease History Family Disease History: Diabetes: Father (HTN-), Mother (HTN-), Heart Disease: Grandparent (), Other: Father, Mother Admission Physical Exam [facility] - Vital Signs Vital Signs: Vital Signs - 24 hr 11/13/16 09:51 Temperature 97 F L Pulse Rate 64 Respiratory 20 Rate Blood Pressure 121/71 - Physical General Appearance: Yes: Moderate Distress, Irritable, Anxious HEENTM: Yes: EOMI, Normocephalic, MICHELLE, Pharynx Normal, Nasal Congestion, Rhinorrhea Respiratory: Yes: Chest Non-Tender, Lungs Clear, Normal Breath Sounds, No Respiratory Distress Neck: Yes: No masses,lesions,Nodules, Supple, Trachea in good position Breast: Yes: Breast Exam Deferred Cardiology: Yes: Regular Rhythm, Regular Rate, S1, S2 Abdominal: Yes: Normal Bowel Sounds, Non Tender, Soft Genitourinary: Yes: Other (N/A) Back: Yes: Within Normal Limits Musculoskeletal: Yes: full range of Motion, Gait Steady Extremities: Yes: Normal Range of Motion, Non-Tender Neurological: Yes: die maker stamping II-XII NML intact, Fully Oriented, Alert, Motor Strength 5/5 Integumentary: Yes: Dry, Warm, Track Chavez (BOTH FOREARMS) Lymphatic: Yes: Within Normal Limits - Diagnostic (1) Opioid dependence with withdrawal Current Visit: Yes Status: Acute (2) HIV (human immunodeficiency virus infection) Current Visit: Yes Status: Chronic (3) Hep C w/o coma, chronic Current Visit: Yes Status: Chronic (4) Weight loss Current Visit: Yes Status: Chronic (5) S/P angioplasty with stent Current Visit: Yes Status: Chronic (6) Hypertension Current Visit: Yes Status: Chronic Qualifiers: Hypertension type: essential hypertension Qualified Code(s): I10 - Essential (primary) hypertension Cleared for Admission [facility] - Detox or Rehab [facility] Level of Care: Medically Managed Detox Regimen/Protocol: Methadone [facility] Breath Alcohol Content Breath Alcohol Content: 0 Urine Drug Screen - Results Drug Screen Negative: No Urine Drug Screen Results: OPI-Opiates
[2016-11-13] MEDS ORDERED: P-EPHED 60MG/TRIPROLIDI 2.5MG TABLET PO PRN (12:04)
[2016-11-13] MEDS ORDERED: IBUPROFEN 400 MG TABLET (FP) PO PRN (12:04)
[2016-11-13] MEDS ORDERED: MAG HYDROX/AL HYDROX/SIMETH 30 ML UNIT-DOSE CUP PO PRN (12:04)
[2016-11-13] MEDS ORDERED: MAGNESIUM HYDROX 2400MG/30ML ORAL SUSPENSION 30 ML CUP PO PRN (12:04)
[2016-11-13] MEDS ORDERED: diphenhydrAMINE HCL 50 MG CAPSULE PO PRN (12:04)
[2016-11-13] MEDS ORDERED: MAGNESIUM CITRATE 300 ML BOTTLE PO PRN (12:04)
[2016-11-13] MEDS ORDERED: NICOTINE POLACRILEX 2 MG GUM BUC PRN (12:04)
[2016-11-13] MEDS ORDERED: guaiFENesin/D-METHORPHAN HB 10 ML UNIT-DOSE CUPS PO PRN (12:04)
[2016-11-13] MEDS ORDERED: MENTHOL/PHENOL 1 EACH UD MM PRN (12:04)
[2016-11-13] MEDS ORDERED: hydrOXYzine PAMOATE 25 MG CAPSULE (FP) PO PRN (12:04)
[2016-11-13] MEDS ORDERED: ACETAMINOPHEN 325 MG TABLET (FP) PO PRN (12:04)
[2016-11-13] MEDS ORDERED: LOPERAMIDE HCL 2 MG CAPSULE PO PRN (12:04)
[2016-11-13] MEDS ORDERED: NITROGLYCERIN SUBLINGUAL 1/150 0.4 MG TAB SL SCH (12:15)
[2016-11-13] MEDS ORDERED: METHADONE HCL 10 MG TABLET (FOR DETOX USE ONLY) PO ONE ×2 (12:54→23:00)
[2016-11-13] MEDS: diazePAM 5 MG TABLET PO PRN ×2 (14:04→22:41)
[2016-11-13] MEDS: NICOTINE 14 MG/24 HOURS TOPICAL PATCH TD SCH (14:04)
[2016-11-13] MEDS: DARUNAVIR ETHANOLATE 600 MG TAB PO SCH (17:17)
[2016-11-13] MEDS: RITONAVIR 100 MG TABLET PO SCH (17:18)
--- NOTE | 2016-11-13 20:01 | EKG ---
Test Reason : Blood Pressure : / mmHG Vent. Rate : 055 BPM Atrial Rate : 055 BPM P-R Int : 144 ms QRS Dur : 092 ms QT Int : 400 ms P-R-T Axes : 081 038 051 degrees QTc Int : 382 ms SINUS BRADYCARDIA SEPTAL INFARCT (CITED ON OR BEFORE 23-AUG-2016) ABNORMAL ECG WHEN COMPARED WITH ECG OF 24-AUG-2016 00:02, NO SIGNIFICANT CHANGE WAS FOUND Confirmed by CHAPO ROCKWELL MD ([id number] on 11/13/2016 8:00:33 PM Referred By: Confirmed By:CHAPO ROCKWELL MD
[2016-11-13] MEDS: MARAVIROC 150 MG TAB PO SCH (22:37)
[2016-11-13] MEDS: THIAMINE HCL 100 MG TABLET (FP) PO SCH (22:37)
[2016-11-13] MEDS: METOPROLOL TARTRATE 50 MG TABLET (FP) PO SCH (22:38)
[2016-11-13] MEDS: AMMONIUM LACTATE 12% LOTION 225 GM BOTTLE TP SCH (22:38)
[2016-11-13] MEDS: ATORVASTATIN CA 20 MG TABLET (FP) PO SCH (22:38)
[2016-11-13] MEDS: RALTEGRAVIR POTASSIUM 400 MG TAB PO SCH (22:38)
[2016-11-13 23:32] LABS: URINE APPEARANCE CLEAR; URINE BILIRUBIN NEGATIVE (NEGATIVE); URINE BLOOD NEGATIVE (NEGATIVE); URINE COLOR LT. YELLOW; URINE GLUCOSE (UA) NEGATIVE (NEGATIVE); URINE KETONE NEGATIVE (NEGATIVE); URINE LEUK ESTERASE NEGATIVE (NEGATIVE); URINE NITRITE NEGATIVE (NEGATIVE); URINE PROTEIN NEGATIVE (NEGATIVE); URINE UROBILINOGEN 0.2 mg/dL (0.2-1.0)
[2016-11-14] MEDS: diazePAM 5 MG TABLET PO PRN ×4 (06:13→22:36)
[2016-11-14] MEDS: DARUNAVIR ETHANOLATE 600 MG TAB PO SCH ×2 (07:20→17:44)
[2016-11-14] MEDS: RITONAVIR 100 MG TABLET PO SCH ×2 (07:20→17:44)
[2016-11-14 09:51] LABS: MCH 30.7 pg (25.7-33.7); MCHC 33.5 g/dl (32.0-35.9); MEAN CELL VOLUME 91.6 fl (80-96); MEAN PLT VOLUME 10.2 fl (7.5-11.1); PLATELET COUNT 200 K/MM3 (134-434); RDW 14.5 % (11.9-15.9); WHITE BLOOD COUNT 4.6 K/mm3 (4.0-10.0)
[2016-11-14] MEDS ORDERED: METHADONE HCL 10 MG TABLET (FOR DETOX USE ONLY) PO ONE (10:00)
[2016-11-14 10:54] LABS: ALBUMIN 3.9 g/dl (3.4-5.0); ALK PHOS 82 U/L (45-117); ANION GAP 8 (8-16); BILIRUBIN,TOTAL 0.3 mg/dL (0.2-1.0); CALCIUM 8.9 mg/dL (8.5-10.1); CO2 25 mmol/L (21-32); CREATININE 1.6 mg/dL (0.7-1.3); GLUCOSE,RANDOM 101 mg/dL (74-106); SGOT/AST 16 U/L (15-37); SGPT/ALT 21 U/L (12-78); TOT PROT 7.3 g/dl (6.4-8.2)
[2016-11-14] MEDS: RALTEGRAVIR POTASSIUM 400 MG TAB PO SCH ×2 (11:03→22:32)
[2016-11-14] MEDS: LISINOPRIL 5 MG TABLET (FP) PO SCH (11:03)
[2016-11-14] MEDS: METOPROLOL TARTRATE 50 MG TABLET (FP) PO SCH ×2 (11:04→22:32)
[2016-11-14] MEDS: PRENATAL VITAMINS W/ FOLIC ACID TABLET (FP) PO SCH (11:04)
[2016-11-14] MEDS: ASPIRIN 81 MG CHEWABLE TABLETS PO SCH (11:04)
[2016-11-14] MEDS: CLOPIDOGREL BISULFATE 75 MG TABLET (FP) PO SCH (11:04)
[2016-11-14] MEDS: FENOFIBRIC ACID 45 MG CAP PO SCH (11:06)
[2016-11-14] MEDS: MARAVIROC 150 MG TAB PO SCH ×2 (11:06→22:33)
[2016-11-14] MEDS: AMMONIUM LACTATE 12% LOTION 225 GM BOTTLE TP SCH ×2 (11:06→22:32)
[2016-11-14] MEDS: NICOTINE 14 MG/24 HOURS TOPICAL PATCH TD SCH (11:08)
--- NOTE | 2016-11-14 12:09 | PN ---
BHS COWS - Scale Resting Pulse: 0= [place] 80 or Below Sweatin= Chills/Flushing Restless Observation: 3= Extraneous Movement Pupil Size: 2= Moderately Dilated Bone or Joint Aches: 4=Acute Joint/Muscle Pain Runny Nose/ Eye Tearin= None GI Upset > 30mins: 1= Stomach Cramp Tremor Observation of Outstretched Hands: 1= Tremor [place], Not Seen Yawning Observation: 1= 1-2x During Session Anxiety or Irritability: 1=Feels Anxious/Irritable Goose Flesh Skin: 0=Smooth Skin COWS Score: 14 S Progress Note (SOAP) Subjective: ANXIETY,SWEATS,INTERMITTENT SLEEP. Objective: 11/14/16 12:08 Vital Signs Temperature 97.6 F 11/14/16 10:14 Pulse Rate 63 11/14/16 10:14 Respiratory Rate 18 11/14/16 10:14 Blood Pressure 112/76 11/14/16 10:14 O2 Sat by Pulse Oximetry (%) Laboratory Last Values WBC 4.6 K/mm3 (4.0-10.0) 11/14/16 06:00 RBC 4.14 M/mm3 (4.00-5.60) 11/14/16 06:00 Hgb 12.7 GM/dL (11.7-16.9) 11/14/16 06:00 Hct 37.9 % (35.4-49) 11/14/16 06:00 MCV 91.6 fl (80-96) 11/14/16 06:00 MCH 30.7 pg (25.7-33.7) 11/14/16 06:00 MCHC 33.5 g/dl (32.0-35.9) 11/14/16 06:00 RDW 14.5 % (11.9-15.9) 11/14/16 06:00 Plt Count 200 K/MM3 (134-434) 11/14/16 06:00 MPV 10.2 fl (7.5-11.1) 11/14/16 06:00 Sodium 136 mmol/L (136-145) 11/14/16 06:00 Potassium 4.7 mmol/L (3.5-5.1) 11/14/16 06:00 Chloride 103 mmol/L (98-107) 11/14/16 06:00 Carbon Dioxide 25 mmol/L (21-32) 11/14/16 06:00 Anion Gap 8 (8-16) 11/14/16 06:00 BUN 14 mg/dL (7-18) 11/14/16 06:00 Creatinine 1.6 mg/dL (0.7-1.3) H 11/14/16 06:00 Creat Clearance w eGFR 43.87 (>60) 11/14/16 06:00 Random Glucose 101 mg/dL (74-106) D 11/14/16 06:00 Calcium 8.9 mg/dL (8.5-10.1) 11/14/16 06:00 Total Bilirubin 0.3 mg/dL (0.2-1.0) 11/14/16 06:00 AST 16 U/L (15-37) D 11/14/16 06:00 ALT 21 U/L (12-78) 11/14/16 06:00 Alkaline Phosphatase 82 U/L (45-117) 11/14/16 06:00 Total Protein 7.3 g/dl (6.4-8.2) 11/14/16 06:00 Albumin 3.9 g/dl (3.4-5.0) 11/14/16 06:00 Urine Color Lt. yellow 11/13/16 20:56 Urine Appearance Clear 11/13/16 20:56 Urine pH 7.0 (5.0-8.0) 11/13/16 20:56 Ur Specific [place] 1.020 (1.005-1.025) 11/13/16 20:56 Urine Protein Negative (NEGATIVE) 11/13/16 20:56 Urine Glucose (UA) Negative (NEGATIVE) 11/13/16 20:56 Urine Ketones Negative (NEGATIVE) 11/13/16 20:56 Urine Blood Negative (NEGATIVE) 11/13/16 20:56 Urine Nitrite Negative (NEGATIVE) 11/13/16 20:56 Urine Bilirubin Negative (NEGATIVE) 11/13/16 20:56 Urine Urobilinogen 0.2 mg/dL (0.2-1.0) 11/13/16 20:56 Ur Leukocyte Esterase Negative (NEGATIVE) 11/13/16 20:56 RPR Titer Nonreactive (NONREACTIVE) 11/14/16 06:00 Assessment: 11/14/16 12:09 WITHDRAWAL SX Plan: CONTINUE DETOX
[2016-11-14] MEDS: ATORVASTATIN CA 20 MG TABLET (FP) PO SCH (22:32)
[2016-11-14] MEDS: THIAMINE HCL 100 MG TABLET (FP) PO SCH (22:32)
[2016-11-15] MEDS: diazePAM 5 MG TABLET PO PRN ×3 (05:38→19:07)
[2016-11-15] MEDS: RITONAVIR 100 MG TABLET PO SCH ×2 (07:34→19:06)
[2016-11-15] MEDS: DARUNAVIR ETHANOLATE 600 MG TAB PO SCH ×2 (07:34→19:06)
[2016-11-15] MEDS ORDERED: METHADONE HCL 5 MG TABLET (FOR DETOX USE ONLY) PO ONE (10:00)
[2016-11-15] MEDS: PRENATAL VITAMINS W/ FOLIC ACID TABLET (FP) PO SCH (11:04)
[2016-11-15] MEDS: ASPIRIN 81 MG CHEWABLE TABLETS PO SCH (11:04)
[2016-11-15] MEDS: METOPROLOL TARTRATE 50 MG TABLET (FP) PO SCH ×2 (11:04→22:06)
[2016-11-15] MEDS: RALTEGRAVIR POTASSIUM 400 MG TAB PO SCH ×2 (11:04→22:06)
[2016-11-15] MEDS: CLOPIDOGREL BISULFATE 75 MG TABLET (FP) PO SCH (11:04)
[2016-11-15] MEDS: MARAVIROC 150 MG TAB PO SCH ×2 (11:05→22:09)
[2016-11-15] MEDS: NICOTINE 14 MG/24 HOURS TOPICAL PATCH TD SCH (11:05)
[2016-11-15] MEDS: FENOFIBRIC ACID 45 MG CAP PO SCH (11:05)
[2016-11-15] MEDS: AMMONIUM LACTATE 12% LOTION 225 GM BOTTLE TP SCH ×2 (11:06→23:00)
[2016-11-15] MEDS: LISINOPRIL 5 MG TABLET (FP) PO SCH (11:13)
--- NOTE | 2016-11-15 12:26 | PN ---
S COWS - Scale Resting Pulse: 0= [place] 80 or Below Sweatin= Chills/Flushing Restless Observation: 3= Extraneous Movement Pupil Size: 2= Moderately Dilated Bone or Joint Aches: 4=Acute Joint/Muscle Pain Runny Nose/ Eye Tearin= Nasal Congestion GI Upset > 30mins: 1= Stomach Cramp Tremor Observation of Outstretched Hands: 1= Tremor [place], Not Seen Yawning Observation: 1= 1-2x During Session Anxiety or Irritability: 2=Irritable/Anxious Goose Flesh Skin: 0=Smooth Skin COWS Score: 16 S Progress Note (SOAP) Subjective: ANXIETY,SWEATS,TREMORS. Objective: 11/15/16 12:24 Vital Signs Temperature 96.6 F L 11/15/16 09:38 Pulse Rate 63 11/15/16 09:38 Respiratory Rate 18 11/15/16 09:38 Blood Pressure 106/69 11/15/16 09:38 O2 Sat by Pulse Oximetry (%) Laboratory Last Values WBC 4.6 K/mm3 (4.0-10.0) 11/14/16 06:00 RBC 4.14 M/mm3 (4.00-5.60) 11/14/16 06:00 Hgb 12.7 GM/dL (11.7-16.9) 11/14/16 06:00 Hct 37.9 % (35.4-49) 11/14/16 06:00 MCV 91.6 fl (80-96) 11/14/16 06:00 MCH 30.7 pg (25.7-33.7) 11/14/16 06:00 MCHC 33.5 g/dl (32.0-35.9) 11/14/16 06:00 RDW 14.5 % (11.9-15.9) 11/14/16 06:00 Plt Count 200 K/MM3 (134-434) 11/14/16 06:00 MPV 10.2 fl (7.5-11.1) 11/14/16 06:00 Sodium 136 mmol/L (136-145) 11/14/16 06:00 Potassium 4.7 mmol/L (3.5-5.1) 11/14/16 06:00 Chloride 103 mmol/L (98-107) 11/14/16 06:00 Carbon Dioxide 25 mmol/L (21-32) 11/14/16 06:00 Anion Gap 8 (8-16) 11/14/16 06:00 BUN 14 mg/dL (7-18) 11/14/16 06:00 Creatinine 1.6 mg/dL (0.7-1.3) H 11/14/16 06:00 Creat Clearance w eGFR 43.87 (>60) 11/14/16 06:00 Random Glucose 101 mg/dL (74-106) D 11/14/16 06:00 Calcium 8.9 mg/dL (8.5-10.1) 11/14/16 06:00 Total Bilirubin 0.3 mg/dL (0.2-1.0) 11/14/16 06:00 AST 16 U/L (15-37) D 11/14/16 06:00 ALT 21 U/L (12-78) 11/14/16 06:00 Alkaline Phosphatase 82 U/L (45-117) 11/14/16 06:00 Total Protein 7.3 g/dl (6.4-8.2) 11/14/16 06:00 Albumin 3.9 g/dl (3.4-5.0) 11/14/16 06:00 Urine Color Lt. yellow 11/13/16 20:56 Urine Appearance Clear 11/13/16 20:56 Urine pH 7.0 (5.0-8.0) 11/13/16 20:56 Ur Specific [place] 1.020 (1.005-1.025) 11/13/16 20:56 Urine Protein Negative (NEGATIVE) 11/13/16 20:56 Urine Glucose (UA) Negative (NEGATIVE) 11/13/16 20:56 Urine Ketones Negative (NEGATIVE) 11/13/16 20:56 Urine Blood Negative (NEGATIVE) 11/13/16 20:56 Urine Nitrite Negative (NEGATIVE) 11/13/16 20:56 Urine Bilirubin Negative (NEGATIVE) 11/13/16 20:56 Urine Urobilinogen 0.2 mg/dL (0.2-1.0) 11/13/16 20:56 Ur Leukocyte Esterase Negative (NEGATIVE) 11/13/16 20:56 RPR Titer Nonreactive (NONREACTIVE) 11/14/16 06:00 Assessment: 11/15/16 12:25 WITHDRAWAL SX Plan: CONTINUE DETOX
[2016-11-15] MEDS: THIAMINE HCL 100 MG TABLET (FP) PO SCH (22:06)
[2016-11-15] MEDS: ATORVASTATIN CA 20 MG TABLET (FP) PO SCH (22:06)
[2016-11-16] MEDS: diazePAM 5 MG TABLET PO PRN ×2 (05:58→11:06)
[2016-11-16] MEDS: RITONAVIR 100 MG TABLET PO SCH ×2 (08:24→18:02)
[2016-11-16] MEDS: DARUNAVIR ETHANOLATE 600 MG TAB PO SCH ×2 (08:24→18:03)
[2016-11-16] MEDS ORDERED: METHADONE HCL 10 MG TABLET (FOR DETOX USE ONLY) PO ONE (10:00)
[2016-11-16] MEDS ORDERED: METHADONE HCL 5 MG TABLET (FOR DETOX USE ONLY) PO ONE (10:00)
[2016-11-16] MEDS: ASPIRIN 81 MG CHEWABLE TABLETS PO SCH (10:58)
[2016-11-16] MEDS: RALTEGRAVIR POTASSIUM 400 MG TAB PO SCH ×2 (10:59→22:37)
[2016-11-16] MEDS: CLOPIDOGREL BISULFATE 75 MG TABLET (FP) PO SCH (10:59)
[2016-11-16] MEDS: NICOTINE 14 MG/24 HOURS TOPICAL PATCH TD SCH (11:00)
[2016-11-16] MEDS: PRENATAL VITAMINS W/ FOLIC ACID TABLET (FP) PO SCH (11:00)
[2016-11-16] MEDS: MARAVIROC 150 MG TAB PO SCH ×2 (11:01→22:38)
[2016-11-16] MEDS: FENOFIBRIC ACID 45 MG CAP PO SCH (11:01)
[2016-11-16] MEDS: AMMONIUM LACTATE 12% LOTION 225 GM BOTTLE TP SCH ×2 (11:01→22:39)
[2016-11-16] MEDS: LISINOPRIL 5 MG TABLET (FP) PO SCH (11:02)
[2016-11-16] MEDS: METOPROLOL TARTRATE 50 MG TABLET (FP) PO SCH ×2 (11:02→22:37)
--- NOTE | 2016-11-16 19:33 | PN ---
BHS Progress Note (SOAP) Subjective: Interrupted Sleep. Objective: PT. A & O X 3, OBSERVED AMBULATING ON UNIT. NO ACUTE DISTRESS. 11/16/16 19:31 Vital Signs Temperature 97.0 F L 11/16/16 18:50 Pulse Rate 66 11/16/16 18:50 Respiratory Rate 16 11/16/16 18:50 Blood Pressure 102/62 11/16/16 18:50 O2 Sat by Pulse Oximetry (%) Laboratory Tests 11/13/16 11/14/16 11/14/16 20:56 06:00 06:00 WBC 4.6 RBC 4.14 Hgb 12.7 Hct 37.9 MCV 91.6 MCH 30.7 MCHC 33.5 RDW 14.5 Plt Count 200 MPV 10.2 Sodium 136 Potassium 4.7 Chloride 103 Carbon Dioxide 25 Anion Gap 8 BUN 14 Creatinine 1.6 H Creat Clearance w eGFR 43.87 Random Glucose 101 D Calcium 8.9 Total Bilirubin 0.3 AST 16 D ALT 21 Alkaline Phosphatase 82 Total Protein 7.3 Albumin 3.9 Urine Color Lt. yellow Urine Appearance Clear Urine pH 7.0 Ur Specific [place] 1.020 Urine Protein Negative Urine Glucose (UA) Negative Urine Ketones Negative Urine Blood Negative Urine Nitrite Negative Urine Bilirubin Negative Urine Urobilinogen 0.2 Ur Leukocyte Esterase Negative RPR Titer 11/14/16 06:00 WBC RBC Hgb Hct MCV MCH MCHC RDW Plt Count MPV Sodium Potassium Chloride Carbon Dioxide Anion Gap BUN Creatinine Creat Clearance w eGFR Random Glucose Calcium Total Bilirubin AST ALT Alkaline Phosphatase Total Protein Albumin Urine Color Urine Appearance Urine pH Ur Specific [place] Urine Protein Urine Glucose (UA) Urine Ketones Urine Blood Urine Nitrite Urine Bilirubin Urine Urobilinogen Ur Leukocyte Esterase RPR Titer Nonreactive LABS NOTED. Assessment: 11/16/16 19:31 WITHDRAWAL SYMPTOMS. Plan: CONTINUE DETOX.
[2016-11-16] MEDS: THIAMINE HCL 100 MG TABLET (FP) PO SCH (22:37)
[2016-11-16] MEDS: ATORVASTATIN CA 20 MG TABLET (FP) PO SCH (22:38)
[2016-11-17] MEDS ORDERED: METHADONE HCL 5 MG TABLET (FOR DETOX USE ONLY) PO ONE (06:00)
[2016-11-17 06:33] VITALS: BP 102/65; PULSE 60; TEMP 98
[2016-11-17] MEDS: DARUNAVIR ETHANOLATE 600 MG TAB PO SCH (07:39)
[2016-11-17] MEDS: RITONAVIR 100 MG TABLET PO SCH (07:40)
[2016-11-17] MEDS ORDERED: METHADONE HCL 10 MG TABLET (FOR DETOX USE ONLY) PO ONE (10:00)
--- NOTE | 2016-11-17 13:17 | DS ---
[facility] Detox Discharge Summary Admission Date: 11/13/16 Discharge Date: 11/17/16 - History Present History: Opioid Dependence Pertinent Past History: CAD Hepatitis C HIV HLD HTN - Physical Exam Results Vital Signs: Vital Signs Temperature 98 F 11/17/16 06:32 Pulse Rate 60 11/17/16 06:32 Respiratory Rate 16 11/17/16 06:32 Blood Pressure 102/65 11/17/16 06:32 O2 Sat by Pulse Oximetry (%) Pertinent Admission Physical Exam Findings: Withdrawal symptoms Laboratory Tests 11/13/16 11/14/16 11/14/16 20:56 06:00 06:00 WBC 4.6 RBC 4.14 Hgb 12.7 Hct 37.9 MCV 91.6 MCH 30.7 MCHC 33.5 RDW 14.5 Plt Count 200 MPV 10.2 Sodium 136 Potassium 4.7 Chloride 103 Carbon Dioxide 25 Anion Gap 8 BUN 14 Creatinine 1.6 H Creat Clearance w eGFR 43.87 Random Glucose 101 D Calcium 8.9 Total Bilirubin 0.3 AST 16 D ALT 21 Alkaline Phosphatase 82 Total Protein 7.3 Albumin 3.9 Urine Color Lt. yellow Urine Appearance Clear Urine pH 7.0 Ur Specific [place] 1.020 Urine Protein Negative Urine Glucose (UA) Negative Urine Ketones Negative Urine Blood Negative Urine Nitrite Negative Urine Bilirubin Negative Urine Urobilinogen 0.2 Ur Leukocyte Esterase Negative RPR Titer 11/14/16 06:00 WBC RBC Hgb Hct MCV MCH MCHC RDW Plt Count MPV Sodium Potassium Chloride Carbon Dioxide Anion Gap BUN Creatinine Creat Clearance w eGFR Random Glucose Calcium Total Bilirubin AST ALT Alkaline Phosphatase Total Protein Albumin Urine Color Urine Appearance Urine pH Ur Specific [place] Urine Protein Urine Glucose (UA) Urine Ketones Urine Blood Urine Nitrite Urine Bilirubin Urine Urobilinogen Ur Leukocyte Esterase RPR Titer Nonreactive Labs noted: serum creatinine 1.6 (most likely from prerenal azotemia: encouraged to drink lots of water, f/u with PCP for monitoring) - Treatment Hospital Course: Detox Protocol Followed, Detoxed Safely, Responded well, Discharged Condition Good - Medication Discharge Medications: Ambulatory Orders Ammonium Lactate Lotion [Lac-Hydrin 12% Lotion -] 1 applic TP BID 08/23/16 Aspirin [ASA -] 81 mg PO DAILY 08/23/16 Atorvastatin Ca [Lipitor] 20 mg PO HS 08/23/16 Clopidogrel Bisulfate [Clopidogrel] 75 mg PO DAILY 08/23/16 Darunavir Ethanolate [Prezista -] 600 mg PO BID 08/23/16 Fenofibrate Nanocrystallized [Fenofibrate] 54 mg PO DAILY 08/23/16 Lisinopril [Zestril] 2.5 mg PO DAILY 08/23/16 Maraviroc [Selzentry -] 150 mg PO BID 08/23/16 Metoprolol Tartrate [Lopressor -] 50 mg PO BID 08/23/16 Nitroglycerin Sublingual [Nitrostat -] 0.4 mg SL PRN 08/23/16 Raltegravir [Isentress -] 400 mg PO BID 08/23/16 Ritonavir [Norvir -] 100 mg PO BID 08/23/16 - Diagnosis (1) Opioid dependence with withdrawal Status: Acute (2) HIV (human immunodeficiency virus infection) Status: Chronic (3) Hep C w/o coma, chronic Status: Chronic (4) Hypertension Status: Chronic Qualifiers: Hypertension type: essential hypertension Qualified Code(s): I10 - Essential (primary) hypertension (5) S/P angioplasty with stent Status: Chronic (6) CAD (coronary artery disease) Status: Chronic (7) HLD (hyperlipidemia) Status: Chronic (8) Nicotine dependence Status: Chronic - AMA Did Patient Leave Against Medical Advice: No
[2016-11-18] MEDS ORDERED: METHADONE HCL 5 MG TABLET (FOR DETOX USE ONLY) PO ONE (06:00)
== END 2016-11-17 09:36 | disposition home or self-care (01) | DRG 897 ==
LOC: YASAS 08:31 → Y3N 12:50
PROVIDERS: ADMIT Internal Medicine; ATTEND Internal Medicine
PROC: HZ2ZZZZ Detoxification Services for Substance Abuse Treatment (ICD-10-PCS; principal; 2016-11-13)
DX: F11.23 Opioid dependence with withdrawal (principal); F17.210 Nicotine dependence, cigarettes, uncomplicated; Z21 Asymptomatic human immunodeficiency virus [HIV] infection status; B18.2 Chronic viral hepatitis C; I25.10 Atherosclerotic heart disease of native coronary artery without angina pectoris; E78.5 Hyperlipidemia, unspecified; Z95.5 Presence of coronary angioplasty implant and graft; Z79.82 Long term (current) use of aspirin; Z87.898 Personal history of other specified conditions
CPT/HCPCS: 36415; 80053; 81003; 85027; 86593; 93005; 93010

== ENCOUNTER 2018-02-16 12:36 | Inpatient (IN) | payer OTHER ==
[2018-02-16 13:18] VITALS: BMI 23.6
--- NOTE | 2018-02-16 15:59 | HP ---
COWS - Scale Resting Pulse: 1= [place] 81-100 Sweatin= Chills/Flushing Restless Observation: 1= Difficult to Sit Still Pupil Size: 1= Pupils >than Normal Bone or Joint Aches: 2= Severe Diffuse Aches Runny Nose/ Eye Tearin= Runny Nose/Eyes GI Upset > 30mins: 1= Stomach Cramp Tremor Observation: 1= Tremor [place], Not Seen Yawning Observation: 1= 1-2x During Session Anxiety or Irritability: 2=Irritable/Anxious Goose Flesh Skin: 0=Smooth Skin COWS Score: 13 CIWA Score - Admission Criteria [facility] Guidelines: Admission for Medically Managed Detox: Requires at least one of the followin. CIWA greater than 12 2. Seizures within the past 24 hours 3. Delirium tremens within the past 24 hours 4. Hallucinations within the past 24 hours 5. Acute intervention needed for co occurring medical disorder 6. Acute intervention needed for co occurring psychiatric disorder 7. Severe withdrawal that cannot be handled at a lower level of care (continued vomiting, continued diarrhea, abnormal vital signs) requiring intravenous medication and/or fluids 8. Admission ROS [facility] Chief Complaint: "I don't want to using drugs" Allergies/Adverse Reactions: Allergies Allergy/AdvReac Type Severity Reaction Status Date / Time No Known Allergies Allergy Verified 02/16/18 14:41 History of Present Illness: 62 yo with HIV, treated HCV and cardiac disease, here for opioid detox. Using heroin 7-8 bags/day. Has been using for regularly for the last 2 years. Was abstinent for 7 years. Says he has never been on methadone or Suboxone. Was here for detox last year- at that time was also drinking alcohol. Last use- last night IV heroin- says he feels like he is in withdrawal. Drinking alcohol- 3-4 beers/ 2-3 days- says this is not a problem for him. 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/day - Ebola screening Have you been sick,other than usual withdrawal symptoms: No Patient History - Patient Medical History Hx Anemia: No Hx Asthma: No Hx Chronic Obstructive Pulmonary Disease (COPD): No Hx Cardiac Disorders: Yes (on and off chest pain, h/o [place] 2011, stent X1, no CABG) Hx Hypertension: Yes Hx Hypercholesterolemia: No HX Cerebrovascular Accident: No Hx Seizures: No Hx Diabetes: No Hx Gastrointestinal Disorders: No Hx Genitourinary Disorders: No Hx Sexually Transmitted Disorders: No Hx Renal Disease (ESRD): No Hx Thyroid Disease: No Hx Human Immunodeficiency Virus (HIV): Yes (SINCE 1994;ON MED) Hx Hepatitis C: Yes (TREATED;UNDETECTABLE.) Hx Depression: No Hx Suicide Attempt: No Hx Schizophrenia: No - Patient Surgical History Past Surgical History: Yes Hx Neurologic Surgery: No Hx Cataract Extraction: No Hx Cardiac Surgery: Yes (1 stent in 2016) Hx Lung Surgery: No Hx Breast Surgery: No Hx Breast Biopsy: No Hx Abdominal Surgery: No Hx Appendectomy: No Hx Cholecystectomy: No Hx Genitourinary Surgery: No Hx Section: No Hx Orthopedic Surgery: No Anesthesia Reaction: No - PPD History Previous Implant?: Yes Documented Results: Negative w/proof Implanted On Prior [facility] Admission?: Yes Date: 08/25/16 Results: 0 mm - Smoking Cessation Smoking history: Current every day smoker Have you smoked in the past 12 months: Yes Aproximately how many cigarettes per day: 4 Hx Chewing Tobacco Use: No Initiated information on smoking cessation: Yes 'Breaking Loose' booklet given: 02/16/18 - Substance & Tx. History Hx Alcohol Use: Yes (3-4 beers every day-every other day) Substance Use Type: Heroin, Tranquilizers (prescribed 1 mg xanax a day- uses it for sleep prn- not every day) - Substances Abused Heroin Route: Injection Frequency: Daily Amount used: 6-7 bags Age of first use: 19 Date of Last Use: 02/15/18 Family Disease History - Family Disease History Family Disease History: Diabetes: Father (HTN-), Mother (HTN-), Heart Disease: Grandparent (), Other: Father, Mother Admission Physical Exam BHS - Vital Signs Vital Signs: Vital Signs - 24 hr 02/16/18 13:14 Temperature 97.3 F L Pulse Rate 66 Respiratory 18 Rate Blood Pressure 78/55 L - Physical General Appearance: Yes: Within Normal Limits HEENTM: Yes: Within Normal Limits, EOMI, Hearing grossly Normal, MICHELLE, Pharynx Normal Respiratory: Yes: Within Normal Limits Neck: Yes: Within Normal Limits Breast: Yes: Within Normal Limits Abdominal: Yes: Within Normal Limits Genitourinary: Yes: Within Normal Limits Back: Yes: Within Normal Limits Musculoskeletal: Yes: Within Normal Limits Extremities: Yes: Other (with track garcia and scars both extremities, with tinea between 4th-5th toes L foot) Neurological: Yes: Within Normal Limits Integumentary: Yes: Rash (with track garcia and scars both extremities, with tinea between 4th-5th toes L foot), Track Garcia Cleared for Admission [facility] - Detox or Rehab [facility] Level of Care: Medically Managed Detox Regimen/Protocol: Methadone [facility] Breath Alcohol Content Breath Alcohol Content: 0 Urine Pregancy Test - Result Urine Test Results: Negative- NO Line Present Urine Drug Screen - Results Drug Screen Negative: No Urine Drug Screen Results: OPI-Opiates, BZO-Benzodiazepines, MTD-Methadone, OXY- Oxycodone, FEN-Fentanyl
[2018-02-16] MEDS ORDERED: LOPERAMIDE HCL 2 MG CAPSULE PO PRN (16:08)
[2018-02-16] MEDS ORDERED: MAGNESIUM HYDROX 2400MG/30ML ORAL SUSPENSION 30 ML CUP PO PRN (16:08)
[2018-02-16] MEDS ORDERED: ACETAMINOPHEN 325 MG TABLET (FP) PO PRN (16:08)
[2018-02-16] MEDS ORDERED: hydrOXYzine PAMOATE 25 MG CAPSULE (FP) PO PRN (16:08)
[2018-02-16] MEDS ORDERED: MENTHOL/PHENOL 1 EACH UD MM PRN (16:08)
[2018-02-16] MEDS ORDERED: P-EPHED 60MG/TRIPROLIDI 2.5MG TABLET PO PRN (16:08)
[2018-02-16] MEDS ORDERED: MAGNESIUM CITRATE 300 ML BOTTLE PO PRN (16:08)
[2018-02-16] MEDS ORDERED: IBUPROFEN 400 MG TABLET (FP) PO PRN (16:08)
[2018-02-16] MEDS ORDERED: guaiFENesin/D-METHORPHAN HB 10 ML UNIT-DOSE CUPS PO PRN (16:08)
[2018-02-16] MEDS ORDERED: MAG HYDROX/AL HYDROX/SIMETH 30 ML UNIT-DOSE CUP PO PRN (16:08)
[2018-02-16] MEDS ORDERED: METHADONE HCL 10 MG TABLET (FOR DETOX USE ONLY) PO ONE ×2 (16:45→23:00)
[2018-02-16] MEDS: diazePAM 5 MG TABLET PO PRN (19:00)
[2018-02-16] MEDS: ATORVASTATIN CA 20 MG TABLET (FP) PO SCH (22:09)
[2018-02-16] MEDS: FENOFIBRIC ACID 45 MG CAP PO SCH (22:09)
[2018-02-16] MEDS: MARAVIROC 150 MG TAB PO SCH (22:10)
[2018-02-16] MEDS: DARUNAVIR ETHANOLATE 600 MG TAB PO SCH (22:10)
[2018-02-16] MEDS: RITONAVIR 100 MG TABLET PO SCH (22:10)
[2018-02-16] MEDS: CLOTRIMAZOLE 1% CREAM 15 GM TUBE TP SCH (22:10)
[2018-02-16] MEDS: THIAMINE HCL 100 MG TABLET (FP) PO SCH (22:12)
[2018-02-16] MEDS: METOPROLOL TARTRATE 25 MG TABLET (FP) PO SCH (22:12)
[2018-02-17 03:12] LABS: URINE APPEARANCE CLEAR; URINE BILIRUBIN NEGATIVE (<2.0 mg/dL); URINE COLOR LTYELLOW; URINE GLUCOSE (UA) NEGATIVE (NEGATIVE); URINE KETONE NEGATIVE (NEGATIVE); URINE LEUK ESTERASE NEGATIVE (NEGATIVE); URINE NITRITE NEGATIVE (NEGATIVE); URINE PROTEIN NEGATIVE (NEGATIVE); URINE UROBILINOGEN NEGATIVE mg/dL (0.2-1.0)
[2018-02-17] MEDS ORDERED: METHADONE HCL 10 MG TABLET (FOR DETOX USE ONLY) PO ONE (10:00)
[2018-02-17 10:06] LABS: HEMATOCRIT 33.7 % (35.4-49); HEMOGLOBIN 11.6 GM/dL (11.7-16.9); MCH 30.5 pg (25.7-33.7); MCHC 34.5 g/dl (32.0-35.9); MEAN CELL VOLUME 88.5 fl (80-96); MEAN PLT VOLUME 9.8 fl (7.5-11.1); PLATELET COUNT 190 K/MM3 (134-434); RBC 3.81 M/mm3 (4.00-5.60); RDW 14.1 % (11.9-15.9); WHITE BLOOD COUNT 4.4 K/mm3 (4.0-10.0)
[2018-02-17 10:27] LABS: ALBUMIN 3.2 g/dl (3.4-5.0); ALK PHOS 78 U/L (45-117); ANION GAP 8 MMOL/L (8-16); BILIRUBIN,TOTAL 0.4 mg/dL (0.2-1); BLOOD UREA NITROGEN 11 mg/dL (7-18); CHLORIDE 103 mmol/L (98-107); CO2 26 mmol/L (21-32); CREATININE 1.6 mg/dL (0.55-1.3); GLUCOSE,RANDOM 67 mg/dL (74-106); POTASSIUM 4.4 mmol/L (3.5-5.1); SGOT/AST 26 U/L (15-37); SGPT/ALT 20 U/L (13-61); SODIUM 137 mmol/L (136-145); TOT PROT 6.6 g/dl (6.4-8.2)
--- NOTE | 2018-02-17 10:34 | EKG ---
Test Reason : Blood Pressure : / mmHG Vent. Rate : 070 BPM Atrial Rate : 070 BPM P-R Int : 144 ms QRS Dur : 092 ms QT Int : 376 ms P-R-T Axes : 079 066 058 degrees QTc Int : 406 ms SINUS RHYTHM WITH PREMATURE ATRIAL COMPLEXES WITH VENTRICULAR ESCAPE COMPLEXES OTHERWISE NORMAL ECG Confirmed by Fabio Hogan MD ([id number]) on 02/17/2018 10:33:57 AM Referred By: Confirmed By:Fabio Hogan MD
[2018-02-17] MEDS: METOPROLOL TARTRATE 25 MG TABLET (FP) PO SCH ×2 (10:59→22:25)
[2018-02-17] MEDS: ASPIRIN 81 MG CHEWABLE TABLETS PO SCH (10:59)
[2018-02-17] MEDS: CLOPIDOGREL BISULFATE 75 MG TABLET (FP) PO SCH (10:59)
[2018-02-17] MEDS: PRENATAL VITAMINS W/ FOLIC ACID TABLET (FP) PO SCH (10:59)
[2018-02-17] MEDS: LISINOPRIL 5 MG TABLET (FP) PO SCH (11:00)
[2018-02-17] MEDS: MARAVIROC 150 MG TAB PO SCH ×2 (11:00→22:23)
[2018-02-17] MEDS: RITONAVIR 100 MG TABLET PO SCH ×2 (11:00→22:22)
[2018-02-17] MEDS: CLOTRIMAZOLE 1% CREAM 15 GM TUBE TP SCH ×2 (11:00→22:23)
[2018-02-17] MEDS: DOLUTEGRAVIR SODIUM 50 MG TABLET PO SCH (11:00)
[2018-02-17] MEDS: NICOTINE 14 MG/24 HOURS TOPICAL PATCH TD SCH (11:00)
[2018-02-17] MEDS: FENOFIBRIC ACID 45 MG CAP PO SCH (11:00)
[2018-02-17] MEDS: DARUNAVIR ETHANOLATE 600 MG TAB PO SCH ×2 (11:31→22:22)
--- NOTE | 2018-02-17 13:54 | PN ---
BHS COWS - Scale Resting Pulse: 0= DC 80 or Below Sweatin= Chills/Flushing Restless Observation: 3= Extraneous Movement Pupil Size: 0= Normal to Room Light Bone or Joint Aches: 2= Severe Diffuse Aches Runny Nose/ Eye Tearin= Runny Nose/Eyes GI Upset > 30mins: 3= Vomiting/Diarrhea Tremor Observation of Outstretched Hands: 2= Slight Tremor Visible Yawning Observation: 1= 1-2x During Session Anxiety or Irritability: 2=Irritable/Anxious Goose Flesh Skin: 0=Smooth Skin COWS Score: 16 BHS Progress Note (SOAP) Subjective: Tremor, chills, sweating, diarrhea, interrupted sleep. Patient requesting to see psychiatrist regarding home medication. Objective: 02/17/18 13:49 Last Vital Signs Temp Pulse Resp BP Pulse Ox 97.8 F 60 16 97/60 02/17/18 13:37 02/17/18 13:37 02/17/18 13:37 02/17/18 13:37 Hypotension noted Laboratory Tests 02/16/18 02/17/18 02/17/18 23:50 07:00 07:00 WBC 4.4 RBC 3.81 L Hgb 11.6 L Hct 33.7 L MCV 88.5 MCH 30.5 MCHC 34.5 RDW 14.1 Plt Count 190 MPV 9.8 Sodium 137 Potassium 4.4 Chloride 103 Carbon Dioxide 26 Anion Gap 8 BUN 11 Creatinine 1.6 H Creat Clearance w eGFR 43.74 Random Glucose 67 L Calcium 9.0 Total Bilirubin 0.4 AST 26 ALT 20 Alkaline Phosphatase 78 Total Protein 6.6 Albumin 3.2 L Urine Color Ltyellow Urine Appearance Clear Urine pH 5.0 D Ur Specific [place] 1.013 Urine Protein Negative Urine Glucose (UA) Negative Urine Ketones Negative Urine Blood Negative Urine Nitrite Negative Urine Bilirubin Negative Urine Urobilinogen Negative Ur Leukocyte Esterase Negative RPR Titer 02/17/18 07:00 WBC RBC Hgb Hct MCV MCH MCHC RDW Plt Count MPV Sodium Potassium Chloride Carbon Dioxide Anion Gap BUN Creatinine Creat Clearance w eGFR Random Glucose Calcium Total Bilirubin AST ALT Alkaline Phosphatase Total Protein Albumin Urine Color Urine Appearance Urine pH Ur Specific [place] Urine Protein Urine Glucose (UA) Urine Ketones Urine Blood Urine Nitrite Urine Bilirubin Urine Urobilinogen Ur Leukocyte Esterase RPR Titer Nonreactive Labs reviewed: serum creatinine 1.6, GFR 43.74, h/h 11.6/33.7 Assessment: 02/17/18 13:54 Withdrawal symptoms Noted with STACY and mild anemia Plan: Continue detox Psychiatry consult ordered as per patient's request STACY: encouraged PO water intake, repeat serum creatinine and bun Anemia: possibly due to chronic disease, continue vitamin, follow up with PCP for monitoring
--- NOTE | 2018-02-17 16:11 | CONSULT ---
[facility] Psychiatric Consult - Data Date of interview: 02/17/18 Admission source: [facility] Identifying data: Readmission to [facility] for this 62 y/o male seeking detoxification treatment, on , for heroin and benzodiazepine ( xanax) dependence. Patient is single, a father of four, domiciled, currently unemployed and supported on his fci benefits. Substance Abuse History: Confirmed by the patient. Details in current [facility] report : Smoking history: Current every day smoker. Have you smoked in the past 12 months: Yes. Aproximately how many cigarettes per day: 4. Hx Chewing Tobacco Use: No. Initiated information on smoking cessation: Yes. 'Breaking Loose' booklet given: 02/16/18. - Substance & Tx. History. Hx Alcohol Use: Yes (3-4 beers every day-every other day). Substance Use Type: Heroin, Tranquilizers (prescribed 1 mg xanax a day- uses it for sleep prn- not every day ). - Substances Abused. Heroin. Route: Injection. Frequency: Daily. Amount used: 6-7 bags. Age of first use: 19. Date of Last Use: 02/15/18 Medical History: Hepatitis C (treated), dyslipidemia, history of positive PPD, HIV infection since 1994 (on ART medications), antecedent of myocardial infarction (angioplasty with stent placement) in 2011, hypertension and coronary artery disease (CAD). Psychiatric History: No reported history of psychiatric hospitalizations. Patient indicates that he sees a psychiatrist at the [facility] in the [place]. Was prescribed xanax in the past. Diagnosed with Anxiety Disorder. Mr Alexander denies history of suicide attempts. Physical/Sexual Abuse/Trauma History: Patient denies. Additional Comment: Urine Drug Screen Results: OPI-Opiates, BZO-Benzodiazepines , MTD-Methadone, OXY-Oxycodone, FEN-Fentanyl. Noted. Mental Status Exam - Mental Status Exam Alert and Oriented to: Time, Place, Person Cognitive Function: Good Patient Appearance: Well Groomed Mood: Withdrawn Affect: Appropriate, Normal Range Patient Behavior: Fatigued, Cooperative Speech Pattern: Clear, Appropriate Voice Loudness: Normal Thought Process: Goal Oriented Thought Disorder: Not Present Hallucinations: Denies Suicidal Ideation: Denies Homicidal Ideation: Denies Insight/Judgement: Poor Appetite: Good, Fair Muscle strength/Tone: Normal Gait/Station: Other (gait not observed ; patient in bed through entire interview ) Psychiatric Findings - Problem List ([place] 1, 2,3) (1) Alcohol dependence with uncomplicated withdrawal Current Visit: Yes Status: Acute (2) Opioid dependence with withdrawal Current Visit: Yes Status: Acute (3) Nicotine dependence Current Visit: Yes Status: Acute (4) Substance induced mood disorder Current Visit: Yes Status: Acute (5) Insomnia Current Visit: Yes Status: Acute Comment: Mild. - Initial Treatment Plan Initial Treatment Plan: Psychoeducation. Sleep hygiene and melatonin at bedtime. Detoxification. AA/NA meetings. Psychotherapy (groups + supportive). Education about measures for relapse prevention (outpatient care with opioid antagonist or partial agonist). Observation.
[2018-02-17] MEDS: diazePAM 5 MG TABLET PO PRN (17:51)
[2018-02-17] MEDS: THIAMINE HCL 100 MG TABLET (FP) PO SCH (22:23)
[2018-02-17] MEDS: ATORVASTATIN CA 20 MG TABLET (FP) PO SCH (22:24)
[2018-02-18] MEDS ORDERED: METHADONE HCL 5 MG TABLET (FOR DETOX USE ONLY) PO ONE (10:00)
[2018-02-18] MEDS: ASPIRIN 81 MG CHEWABLE TABLETS PO SCH (10:00)
[2018-02-18] MEDS: METOPROLOL TARTRATE 25 MG TABLET (FP) PO SCH ×2 (10:01→22:26)
[2018-02-18] MEDS: CLOTRIMAZOLE 1% CREAM 15 GM TUBE TP SCH ×2 (10:01→22:26)
[2018-02-18] MEDS: NICOTINE 14 MG/24 HOURS TOPICAL PATCH TD SCH (10:01)
[2018-02-18] MEDS: RITONAVIR 100 MG TABLET PO SCH ×2 (10:02→22:25)
[2018-02-18] MEDS: LISINOPRIL 5 MG TABLET (FP) PO SCH (10:03)
[2018-02-18] MEDS: CLOPIDOGREL BISULFATE 75 MG TABLET (FP) PO SCH (10:03)
[2018-02-18] MEDS: MARAVIROC 150 MG TAB PO SCH ×2 (10:03→22:25)
[2018-02-18] MEDS: PRENATAL VITAMINS W/ FOLIC ACID TABLET (FP) PO SCH (10:03)
[2018-02-18] MEDS: DARUNAVIR ETHANOLATE 600 MG TAB PO SCH ×2 (10:03→22:25)
[2018-02-18] MEDS: FENOFIBRIC ACID 45 MG CAP PO SCH (10:04)
[2018-02-18] MEDS: DOLUTEGRAVIR SODIUM 50 MG TABLET PO SCH (10:04)
[2018-02-18 11:49] LABS: ANION GAP 9 MMOL/L (8-16); BLOOD UREA NITROGEN 8 mg/dL (7-18); CALCIUM 8.7 mg/dL (8.5-10.1); CHLORIDE 105 mmol/L (98-107); CO2 23 mmol/L (21-32); CREATININE 1.3 mg/dL (0.55-1.3); GLUCOSE,RANDOM 77 mg/dL (74-106); POTASSIUM 4.3 mmol/L (3.5-5.1); SODIUM 137 mmol/L (136-145)
--- NOTE | 2018-02-18 15:25 | PN ---
BHS COWS - Scale Resting Pulse: 0= [place] 80 or Below Sweatin= Chills/Flushing Restless Observation: 3= Extraneous Movement Pupil Size: 0= Normal to Room Light Bone or Joint Aches: 1= Mild Discomfort Runny Nose/ Eye Tearin= None GI Upset > 30mins: 1= Stomach Cramp Tremor Observation of Outstretched Hands: 2= Slight Tremor Visible Yawning Observation: 1= 1-2x During Session Anxiety or Irritability: 2=Irritable/Anxious Goose Flesh Skin: 0=Smooth Skin COWS Score: 11 S Progress Note (SOAP) Subjective: Headache, sweating, diarrhea, interrupted sleep. Patient requested early discharge to leave Friday instead of Friday and agreed to adjust his detox protocol. Objective: 02/18/18 15:24 Last Vital Signs Temp Pulse Resp BP Pulse Ox 97.3 F L 67 17 111/75 02/18/18 13:49 02/18/18 13:49 02/18/18 13:49 02/18/18 13:49 Laboratory Tests 02/16/18 02/17/18 02/17/18 23:50 07:00 07:00 WBC 4.4 RBC 3.81 L Hgb 11.6 L Hct 33.7 L MCV 88.5 MCH 30.5 MCHC 34.5 RDW 14.1 Plt Count 190 MPV 9.8 Sodium 137 Potassium 4.4 Chloride 103 Carbon Dioxide 26 Anion Gap 8 BUN 11 Creatinine 1.6 H Creat Clearance w eGFR 43.74 Random Glucose 67 L Calcium 9.0 Total Bilirubin 0.4 AST 26 ALT 20 Alkaline Phosphatase 78 Total Protein 6.6 Albumin 3.2 L Urine Color Ltyellow Urine Appearance Clear Urine pH 5.0 D Ur Specific [place] 1.013 Urine Protein Negative Urine Glucose (UA) Negative Urine Ketones Negative Urine Blood Negative Urine Nitrite Negative Urine Bilirubin Negative Urine Urobilinogen Negative Ur Leukocyte Esterase Negative RPR Titer 02/17/18 02/18/18 07:00 07:00 WBC RBC Hgb Hct MCV MCH MCHC RDW Plt Count MPV Sodium 137 Potassium 4.3 Chloride 105 Carbon Dioxide 23 Anion Gap 9 BUN 8 Creatinine 1.3 Creat Clearance w eGFR 55.58 Random Glucose 77 Calcium 8.7 Total Bilirubin AST ALT Alkaline Phosphatase Total Protein Albumin Urine Color Urine Appearance Urine pH Ur Specific [place] Urine Protein Urine Glucose (UA) Urine Ketones Urine Blood Urine Nitrite Urine Bilirubin Urine Urobilinogen Ur Leukocyte Esterase RPR Titer Nonreactive Labs reviewed Assessment: 02/18/18 15:24 Withdrawal symptoms Plan: Continue detox Encouraged PO water intake
[2018-02-18] MEDS: diazePAM 5 MG TABLET PO PRN ×2 (15:39→22:24)
[2018-02-18] MEDS: ATORVASTATIN CA 20 MG TABLET (FP) PO SCH (22:24)
[2018-02-18] MEDS: THIAMINE HCL 100 MG TABLET (FP) PO SCH (22:25)
[2018-02-19] MEDS: MELATONIN 5 MG TABLETS PO PRN ×2 (01:20→22:36)
[2018-02-19] MEDS ORDERED: METHADONE HCL 10 MG TABLET (FOR DETOX USE ONLY) PO ONE (10:00)
[2018-02-19] MEDS ORDERED: METHADONE HCL 5 MG TABLET (FOR DETOX USE ONLY) PO ONE (10:00)
[2018-02-19] MEDS: DARUNAVIR ETHANOLATE 600 MG TAB PO SCH ×2 (10:19→22:35)
[2018-02-19] MEDS: FENOFIBRIC ACID 45 MG CAP PO SCH (10:19)
[2018-02-19] MEDS: DOLUTEGRAVIR SODIUM 50 MG TABLET PO SCH (10:20)
[2018-02-19] MEDS: MARAVIROC 150 MG TAB PO SCH ×2 (10:20→22:35)
[2018-02-19] MEDS: RITONAVIR 100 MG TABLET PO SCH ×2 (10:20→22:35)
[2018-02-19] MEDS: METOPROLOL TARTRATE 25 MG TABLET (FP) PO SCH ×2 (10:20→22:35)
[2018-02-19] MEDS: ASPIRIN 81 MG CHEWABLE TABLETS PO SCH (10:20)
[2018-02-19] MEDS: CLOPIDOGREL BISULFATE 75 MG TABLET (FP) PO SCH (10:20)
[2018-02-19] MEDS: PRENATAL VITAMINS W/ FOLIC ACID TABLET (FP) PO SCH (10:20)
[2018-02-19] MEDS: NICOTINE 14 MG/24 HOURS TOPICAL PATCH TD SCH (10:21)
[2018-02-19] MEDS: CLOTRIMAZOLE 1% CREAM 15 GM TUBE TP SCH ×2 (10:22→22:36)
[2018-02-19] MEDS: LISINOPRIL 5 MG TABLET (FP) PO SCH (10:23)
--- NOTE | 2018-02-19 15:12 | PN ---
S Progress Note (SOAP) Subjective: Sweating, tremor, diarrhea, interrupted sleep Objective: 02/19/18 15:08 Last Vital Signs Temp Pulse Resp BP Pulse Ox 96.8 F L 64 18 88/64 L 02/19/18 14:03 02/19/18 14:03 02/19/18 14:03 02/19/18 14:03 Hypotension noted, 88/64 Laboratory Tests 02/16/18 02/17/18 02/17/18 23:50 07:00 07:00 WBC 4.4 RBC 3.81 L Hgb 11.6 L Hct 33.7 L MCV 88.5 MCH 30.5 MCHC 34.5 RDW 14.1 Plt Count 190 MPV 9.8 Sodium 137 Potassium 4.4 Chloride 103 Carbon Dioxide 26 Anion Gap 8 BUN 11 Creatinine 1.6 H Creat Clearance w eGFR 43.74 Random Glucose 67 L Calcium 9.0 Total Bilirubin 0.4 AST 26 ALT 20 Alkaline Phosphatase 78 Total Protein 6.6 Albumin 3.2 L Urine Color Ltyellow Urine Appearance Clear Urine pH 5.0 D Ur Specific [place] 1.013 Urine Protein Negative Urine Glucose (UA) Negative Urine Ketones Negative Urine Blood Negative Urine Nitrite Negative Urine Bilirubin Negative Urine Urobilinogen Negative Ur Leukocyte Esterase Negative RPR Titer 02/17/18 02/18/18 07:00 07:00 WBC RBC Hgb Hct MCV MCH MCHC RDW Plt Count MPV Sodium 137 Potassium 4.3 Chloride 105 Carbon Dioxide 23 Anion Gap 9 BUN 8 Creatinine 1.3 Creat Clearance w eGFR 55.58 Random Glucose 77 Calcium 8.7 Total Bilirubin AST ALT Alkaline Phosphatase Total Protein Albumin Urine Color Urine Appearance Urine pH Ur Specific [place] Urine Protein Urine Glucose (UA) Urine Ketones Urine Blood Urine Nitrite Urine Bilirubin Urine Urobilinogen Ur Leukocyte Esterase RPR Titer Nonreactive Labs reviewed Assessment: 02/19/18 15:09 Withdrawal symptoms Noted with hypotension Plan: Continue detox Hypotension: asymptomatic, encouraged PO water intake
[2018-02-19] MEDS: ATORVASTATIN CA 20 MG TABLET (FP) PO SCH (22:35)
[2018-02-19] MEDS: THIAMINE HCL 100 MG TABLET (FP) PO SCH (22:35)
[2018-02-20] MEDS ORDERED: METHADONE HCL 5 MG TABLET (FOR DETOX USE ONLY) PO ONE (06:00)
[2018-02-20 06:26] VITALS: BP 97/62; PULSE 67; TEMP 98.5
[2018-02-20] MEDS ORDERED: METHADONE HCL 10 MG TABLET (FOR DETOX USE ONLY) PO ONE (10:00)
--- NOTE | 2018-02-20 13:26 | DS ---
[facility] Detox Discharge Summary Admission Date: 02/16/18 Discharge Date: 02/20/18 - History Present History: Opioid Dependence - Physical Exam Results Vital Signs: Vital Signs Temperature 98.5 F 02/20/18 06:26 Pulse Rate 67 02/20/18 06:26 Respiratory Rate 18 02/20/18 06:26 Blood Pressure 97/62 02/20/18 06:26 O2 Sat by Pulse Oximetry (%) - Treatment Hospital Course: Detox Protocol Followed, Detoxed Safely, Responded well, Discharged Condition Good - Medication Discharge Medications: Ambulatory Orders Aspirin [ASA -] 81 mg PO DAILY 08/23/16 Atorvastatin Ca [Lipitor] 20 mg PO HS 08/23/16 Clopidogrel Bisulfate [Clopidogrel] 75 mg PO DAILY 08/23/16 Darunavir Ethanolate [Prezista -] 600 mg PO BID 08/23/16 Fenofibrate Nanocrystallized [Fenofibrate] 54 mg PO DAILY 08/23/16 Lisinopril [Zestril] 2.5 mg PO DAILY 08/23/16 Maraviroc [Selzentry -] 150 mg PO BID 08/23/16 Metoprolol Tartrate [Lopressor -] 25 mg PO BID 08/23/16 Nitroglycerin Sublingual [Nitrostat -] 0.4 mg SL PRN 08/23/16 Ritonavir [Norvir -] 100 mg PO BID 08/23/16 Dolutegravir Sodium [Tivicay] 50 mg PO DAILY 02/16/18 - AMA Did Patient Leave Against Medical Advice: No
[2018-02-21] MEDS ORDERED: METHADONE HCL 5 MG TABLET (FOR DETOX USE ONLY) PO ONE (06:00)
== END 2018-02-20 09:05 | disposition home or self-care (01) | DRG 897 ==
LOC: YASAS 12:36 → Y3N 15:43
PROVIDERS: ADMIT Neuromusculoskeletal Medicine & OMM; ATTEND Neuromusculoskeletal Medicine & OMM
PROC: HZ2ZZZZ Detoxification Services for Substance Abuse Treatment (ICD-10-PCS; principal; 2018-02-16)
DX: F11.23 Opioid dependence with withdrawal (principal); N17.9 Acute kidney failure, unspecified; F10.230 Alcohol dependence with withdrawal, uncomplicated; F17.210 Nicotine dependence, cigarettes, uncomplicated; F19.24 Other psychoactive substance dependence with psychoactive substance-induced mood disorder; Z21 Asymptomatic human immunodeficiency virus [HIV] infection status; G47.00 Insomnia, unspecified; I25.10 Atherosclerotic heart disease of native coronary artery without angina pectoris; I13.10 Hypertensive heart and chronic kidney disease without heart failure, with stage 1 through stage 4 chronic kidney disease, or unspecified chronic kidney disease; Z95.5 Presence of coronary angioplasty implant and graft; I25.2 Old myocardial infarction; R76.11 Nonspecific reaction to tuberculin skin test without active tuberculosis; Z86.19 Personal history of other infectious and parasitic diseases; I95.9 Hypotension, unspecified; D64.9 Anemia, unspecified
CPT/HCPCS: 36415; 80048; 80053; 81003; 85027; 86593; 93005; 93010

== ENCOUNTER 2018-04-03 10:32 | Inpatient (IN) | payer OTHER ==
[2018-04-03 11:11] VITALS: BMI 24.0
--- NOTE | 2018-04-03 12:13 | HP ---
COWS - Scale Resting Pulse: 0= [place] 80 or Below Sweatin=Flushed/Facial Moisture Restless Observation: 0= Sits Still Pupil Size: 1= Pupils >than Normal Bone or Joint Aches: 0= None Runny Nose/ Eye Tearin= Constantly Teary/Runny GI Upset > 30mins: 2= Nausea/Diarrhea Tremor Observation: 1= Tremor [place], Not Seen Yawning Observation: 0= None Anxiety or Irritability: 2=Irritable/Anxious Goose Flesh Skin: 0=Smooth Skin COWS Score: 12 CIWA Score - Admission Criteria OASAS Guidelines: Admission for Medically Managed Detox: Requires at least one of the followin. CIWA greater than 12 2. Seizures within the past 24 hours 3. Delirium tremens within the past 24 hours 4. Hallucinations within the past 24 hours 5. Acute intervention needed for co occurring medical disorder 6. Acute intervention needed for co occurring psychiatric disorder 7. Severe withdrawal that cannot be handled at a lower level of care (continued vomiting, continued diarrhea, abnormal vital signs) requiring intravenous medication and/or fluids 8. Admission ROS [facility] - HPI Allergies/Adverse Reactions: Allergies Allergy/AdvReac Type Severity Reaction Status Date / Time No Known Allergies Allergy Verified 04/03/18 11:18 History of Present Illness: patient here requesting detox from heroin use , reports 6-7 bags IVDU x " a long time " prior detox 2 months ago at this facility, needles from pharmacy , denies sharing , denies re-using . PMHx : htn , hiv + , hep C ( tx 2014 ) , CAD PSHx :stenting 2016 pn Plavix and Aspirin Psych hx : denies meds - see list Exam Limitations: Clinical Condition - Ebola screening Have you traveled outside of the country in the last 21 days: No Have you had contact with anyone from an Ebola affected area: No Have you been sick,other than usual withdrawal symptoms: No Do you have a fever: No - Review of Systems Constitutional: See HPI EENT: reports: Other (glasses - bifocals) Respiratory: reports: No Symptoms reported Cardiac: reports: No Symptoms Reported GI: reports: See HPI : reports: No Symptoms Reported Musculoskeletal: reports: No Symptoms Reported Integumentary: reports: No Symptoms Reported Neuro: reports: Headache Endocrine: reports: No Symptoms Reported Psychiatric: reports: Orientated x3 Patient History - Patient Medical History Hx Anemia: No Hx Asthma: No Hx Chronic Obstructive Pulmonary Disease (COPD): No Hx Cardiac Disorders: Yes (CAD cardiac cath with 1 stent) Hx Hypertension: Yes (on meds.) Hx Hypercholesterolemia: No HX Cerebrovascular Accident: No Hx Seizures: No Hx Diabetes: No Hx Gastrointestinal Disorders: No Hx Genitourinary Disorders: No Hx Sexually Transmitted Disorders: No Hx Renal Disease (ESRD): No Hx Thyroid Disease: No Hx Human Immunodeficiency Virus (HIV): Yes (SINCE 1994;ON MED) Hx Hepatitis C: Yes (TREATED;UNDETECTABLE.) Hx Depression: No Hx Suicide Attempt: No Hx Schizophrenia: No - Patient Surgical History Past Surgical History: Yes Hx Neurologic Surgery: No Hx Cataract Extraction: No Hx Cardiac Surgery: Yes (1 stent in 2015) Hx Lung Surgery: No Hx Breast Surgery: No Hx Breast Biopsy: No Hx Abdominal Surgery: No Hx Appendectomy: No Hx Cholecystectomy: No Hx Genitourinary Surgery: No Hx Section: No Hx Orthopedic Surgery: No Anesthesia Reaction: No - PPD History Previous Implant?: Yes Documented Results: Negative w/proof Implanted On Prior [facility] Admission?: Yes Date: 02/18/18 Results: 0 mm - Smoking Cessation Smoking history: Current every day smoker Have you smoked in the past 12 months: Yes Aproximately how many cigarettes per day: 4 Hx Chewing Tobacco Use: No Initiated information on smoking cessation: No - Substances Abused Heroin Route: Injection Frequency: Daily Amount used: 4-6 BAGS Age of first use: 17 Date of Last Use: 04/02/18 Family Disease History - Family Disease History Family Disease History: Diabetes: Father (HTN-), Mother (HTN-), Heart Disease: Grandparent (), Other: Father, Mother Admission Physical Exam BHS - Vital Signs Vital Signs: Vital Signs - 24 hr 04/03/18 11:03 Temperature 96.2 F L Pulse Rate 64 Respiratory 20 Rate Blood Pressure 108/70 - Physical General Appearance: Yes: No Apparent Distress, Mild Distress HEENTM: Yes: EOMI, Hearing grossly Normal, Normocephalic, Normal Voice Respiratory: Yes: Chest Non-Tender, Lungs Clear, Normal Breath Sounds Neck: Yes: No masses,lesions,Nodules, Trachea in good position Breast: Yes: Breast Exam Deferred Cardiology: Yes: Regular Rhythm, Regular Rate, S1, S2 Abdominal: Yes: Within Normal Limits Genitourinary: Yes: Frequency Back: Yes: Normal Inspection Musculoskeletal: Yes: full range of Motion, Gait Steady Extremities: Yes: Normal Capillary Refill, Normal Inspection, Normal Range of Motion Neurological: Yes: Fully Oriented, Alert, Motor Strength 5/5, Normal Mood/Affect Integumentary: Yes: Normal Color, Dry, Warm - Diagnostic (1) Opioid dependence with withdrawal Current Visit: No Status: Acute BHS Breath Alcohol Content Breath Alcohol Content: 0 Urine Drug Screen - Results Drug Screen Negative: No Urine Drug Screen Results: OPI-Opiates
[2018-04-03] MEDS ORDERED: MAG HYDROX/AL HYDROX/SIMETH 30 ML UNIT-DOSE CUP PO PRN (12:25)
[2018-04-03] MEDS ORDERED: IBUPROFEN 400 MG TABLET (FP) PO PRN (12:25)
[2018-04-03] MEDS ORDERED: MAGNESIUM HYDROX 2400MG/30ML ORAL SUSPENSION 30 ML CUP PO PRN (12:25)
[2018-04-03] MEDS ORDERED: P-EPHED 60MG/TRIPROLIDI 2.5MG TABLET PO PRN (12:25)
[2018-04-03] MEDS ORDERED: MENTHOL/PHENOL 1 EACH UD MM PRN (12:25)
[2018-04-03] MEDS ORDERED: MAGNESIUM CITRATE 300 ML BOTTLE PO PRN (12:25)
[2018-04-03] MEDS ORDERED: guaiFENesin/D-METHORPHAN HB 10 ML UNIT-DOSE CUPS PO PRN (12:25)
[2018-04-03] MEDS ORDERED: ACETAMINOPHEN 325 MG TABLET (FP) PO PRN (12:25)
[2018-04-03] MEDS ORDERED: METHADONE HCL 10 MG TABLET (FOR DETOX USE ONLY) PO ONE ×2 (13:45→23:00)
[2018-04-03] MEDS: ASPIRIN 81 MG CHEWABLE TABLETS PO SCH (13:48)
[2018-04-03] MEDS: AMOX TR/POT CLAV 500MG/125MG TABLETS (FP) PO SCH ×2 (15:00→22:31)
[2018-04-03] MEDS ORDERED: MELATONIN 5 MG TABLETS PO PRN (22:00)
[2018-04-03] MEDS: RITONAVIR 100 MG TABLET PO SCH (22:30)
[2018-04-03] MEDS: DARUNAVIR ETHANOLATE 600 MG TAB PO SCH (22:30)
[2018-04-03] MEDS: MARAVIROC 150 MG TAB PO SCH (22:31)
[2018-04-03] MEDS: THIAMINE HCL 100 MG TABLET (FP) PO SCH (22:31)
[2018-04-03] MEDS: ATORVASTATIN CA 20 MG TABLET (FP) PO SCH (22:31)
[2018-04-03] MEDS: METOPROLOL TARTRATE 25 MG TABLET (FP) PO SCH (22:32)
[2018-04-04] MEDS: AMOX TR/POT CLAV 500MG/125MG TABLETS (FP) PO SCH ×3 (05:52→22:17)
[2018-04-04] MEDS ORDERED: METHADONE HCL 10 MG TABLET (FOR DETOX USE ONLY) PO ONE (10:00)
[2018-04-04] MEDS ORDERED: DOLUTEGRAVIR SODIUM 50 MG TABLET (NON-FORMULARY) PO SCH ×2 (10:00→14:33)
[2018-04-04 10:05] LABS: HEMOGLOBIN 12.1 GM/dL (11.7-16.9); MCH 28.2 pg (25.7-33.7); MEAN CELL VOLUME 88.2 fl (80-96); MEAN PLT VOLUME 10.1 fl (7.5-11.1); PLATELET COUNT 178 K/MM3 (134-434); RDW 14.8 % (11.9-15.9); WHITE BLOOD COUNT 4.3 K/mm3 (4.0-10.0)
[2018-04-04] MEDS ORDERED: ONDANSETRON *ODT* 4 MG TABLET SL PRN (10:23)
[2018-04-04 10:33] LABS: ALBUMIN 3.4 g/dl (3.4-5.0); ALK PHOS 75 U/L (45-117); ANION GAP 8 MMOL/L (8-16); BILIRUBIN,TOTAL 0.4 mg/dL (0.2-1); BLOOD UREA NITROGEN 16 mg/dL (7-18); CALCIUM 8.9 mg/dL (8.5-10.1); CHLORIDE 103 mmol/L (98-107); CO2 27 mmol/L (21-32); CREATININE 1.5 mg/dL (0.55-1.3); GLUCOSE,RANDOM 78 mg/dL (74-106); POTASSIUM 5.1 mmol/L (3.5-5.1); SGOT/AST 18 U/L (15-37); SGPT/ALT 21 U/L (13-61); SODIUM 137 mmol/L (136-145); TOT PROT 6.8 g/dl (6.4-8.2)
[2018-04-04] MEDS: LISINOPRIL 5 MG TABLET (FP) PO SCH (10:38)
[2018-04-04] MEDS: METOPROLOL TARTRATE 25 MG TABLET (FP) PO SCH ×2 (10:38→22:18)
[2018-04-04] MEDS: CLOPIDOGREL BISULFATE 75 MG TABLET (FP) PO SCH (10:38)
[2018-04-04] MEDS: RITONAVIR 100 MG TABLET PO SCH ×2 (10:39→23:24)
[2018-04-04] MEDS: DARUNAVIR ETHANOLATE 600 MG TAB PO SCH ×2 (10:39→22:18)
[2018-04-04] MEDS: ASPIRIN 81 MG CHEWABLE TABLETS PO SCH (10:39)
[2018-04-04] MEDS: PRENATAL VITAMINS W/ FOLIC ACID TABLET (FP) PO SCH (10:39)
[2018-04-04] MEDS: MARAVIROC 150 MG TAB PO SCH ×2 (10:40→23:25)
[2018-04-04] MEDS: OXYBUTYNIN CHLORIDE 5 MG TABLET PO SCH (11:46)
[2018-04-04] MEDS: FENOFIBRIC ACID 45 MG CAP PO SCH (11:47)
--- NOTE | 2018-04-04 14:28 | PN ---
BHS COWS - Scale Resting Pulse: 0= DC 80 or Below Sweatin= Chills/Flushing Restless Observation: 0= Sits Still Pupil Size: 0= Normal to Room Light Bone or Joint Aches: 1= Mild Discomfort Runny Nose/ Eye Tearin= Nasal Congestion GI Upset > 30mins: 3= Vomiting/Diarrhea Tremor Observation of Outstretched Hands: 2= Slight Tremor Visible Yawning Observation: 1= 1-2x During Session Anxiety or Irritability: 2=Irritable/Anxious Goose Flesh Skin: 0=Smooth Skin COWS Score: 11 [facility] Progress Note (SOAP) Subjective: ANXIETY,SWEATS,NAUSEA,VOMITING, DIARRHEA. Objective: 04/04/18 14:29 Vital Signs 04/04/18 10:36 Temperature 98.9 F Pulse Rate 64 Respiratory 20 Rate Blood Pressure 94/60 Laboratory Tests 04/04/18 04/04/18 04/04/18 08:00 08:00 08:00 WBC 4.3 RBC 4.30 Hgb 12.1 Hct 38.0 MCV 88.2 MCH 28.2 MCHC 32.0 RDW 14.8 Plt Count 178 MPV 10.1 Sodium 137 Potassium 5.1 Chloride 103 Carbon Dioxide 27 Anion Gap 8 BUN 16 Creatinine 1.5 H Creat Clearance w eGFR 46.97 Random Glucose 78 Calcium 8.9 Total Bilirubin 0.4 AST 18 ALT 21 Alkaline Phosphatase 75 Total Protein 6.8 Albumin 3.4 RPR Titer Nonreactive Assessment: 04/04/18 14:29 WITHDRAWAL SX Plan: CONTINUE DETOX INCREASE PO FLUIDS ZOFRAN DIRECTED FOR N/V IMODIUM PRN FOR DIARRHEA
[2018-04-04] MEDS ORDERED: LOPERAMIDE HCL 2 MG CAPSULE PO PRN (15:58)
[2018-04-04] MEDS: THIAMINE HCL 100 MG TABLET (FP) PO SCH (22:17)
[2018-04-04] MEDS: ATORVASTATIN CA 20 MG TABLET (FP) PO SCH (22:18)
[2018-04-05] MEDS: AMOX TR/POT CLAV 500MG/125MG TABLETS (FP) PO SCH ×3 (05:29→22:44)
[2018-04-05] MEDS ORDERED: METHADONE HCL 5 MG TABLET (FOR DETOX USE ONLY) PO ONE (10:00)
[2018-04-05] MEDS: LISINOPRIL 5 MG TABLET (FP) PO SCH (10:40)
[2018-04-05] MEDS: METOPROLOL TARTRATE 25 MG TABLET (FP) PO SCH ×2 (10:40→22:45)
[2018-04-05] MEDS: OXYBUTYNIN CHLORIDE 5 MG TABLET PO SCH (10:41)
[2018-04-05] MEDS: PRENATAL VITAMINS W/ FOLIC ACID TABLET (FP) PO SCH (10:41)
[2018-04-05] MEDS: ASPIRIN 81 MG CHEWABLE TABLETS PO SCH (10:41)
[2018-04-05] MEDS: CLOPIDOGREL BISULFATE 75 MG TABLET (FP) PO SCH (10:41)
[2018-04-05] MEDS: MARAVIROC 150 MG TAB PO SCH ×2 (10:42→22:45)
[2018-04-05] MEDS: FENOFIBRIC ACID 45 MG CAP PO SCH (10:43)
[2018-04-05] MEDS: RITONAVIR 100 MG TABLET PO SCH ×2 (10:43→22:41)
[2018-04-05] MEDS: DARUNAVIR ETHANOLATE 600 MG TAB PO SCH ×2 (13:16→22:41)
--- NOTE | 2018-04-05 16:43 | PN ---
BHS COWS - Scale Resting Pulse: 0= [place] 80 or Below Sweatin= Chills/Flushing Restless Observation: 3= Extraneous Movement Pupil Size: 0= Normal to Room Light Bone or Joint Aches: 2= Severe Diffuse Aches Runny Nose/ Eye Tearin= Runny Nose/Eyes GI Upset > 30mins: 3= Vomiting/Diarrhea Tremor Observation of Outstretched Hands: 2= Slight Tremor Visible Yawning Observation: 1= 1-2x During Session Anxiety or Irritability: 2=Irritable/Anxious Goose Flesh Skin: 0=Smooth Skin COWS Score: 16 BHS Progress Note (SOAP) Subjective: Crawling sensation on skin, chills, tremor, diarrhea, interrupted sleep Objective: 04/05/18 16:41 Last Vital Signs Temp Pulse Resp BP Pulse Ox 98.4 F 66 16 98/58 L 04/05/18 11:21 04/05/18 11:21 04/05/18 11:21 04/05/18 11:21 Laboratory Tests 04/04/18 04/04/18 04/04/18 08:00 08:00 08:00 WBC 4.3 RBC 4.30 Hgb 12.1 Hct 38.0 MCV 88.2 MCH 28.2 MCHC 32.0 RDW 14.8 Plt Count 178 MPV 10.1 Sodium 137 Potassium 5.1 Chloride 103 Carbon Dioxide 27 Anion Gap 8 BUN 16 Creatinine 1.5 H Creat Clearance w eGFR 46.97 Random Glucose 78 Calcium 8.9 Total Bilirubin 0.4 AST 18 ALT 21 Alkaline Phosphatase 75 Total Protein 6.8 Albumin 3.4 RPR Titer Nonreactive Labs reviewed: creatinine 1.5, GFR 46.97 Assessment: 04/05/18 16:42 Withdrawal symptoms Noted with STACY Plan: Continue detox STACY: encouraged PO water intake, repeat BMP
[2018-04-05] MEDS: THIAMINE HCL 100 MG TABLET (FP) PO SCH (22:40)
[2018-04-05] MEDS: ATORVASTATIN CA 20 MG TABLET (FP) PO SCH (22:45)
[2018-04-06] MEDS: AMOX TR/POT CLAV 500MG/125MG TABLETS (FP) PO SCH ×3 (05:37→22:09)
[2018-04-06] MEDS: CLOPIDOGREL BISULFATE 75 MG TABLET (FP) PO SCH (09:41)
[2018-04-06] MEDS: RITONAVIR 100 MG TABLET PO SCH ×2 (09:41→22:09)
[2018-04-06] MEDS: ASPIRIN 81 MG CHEWABLE TABLETS PO SCH (09:41)
[2018-04-06] MEDS: DARUNAVIR ETHANOLATE 600 MG TAB PO SCH ×2 (09:41→22:10)
[2018-04-06] MEDS: METOPROLOL TARTRATE 25 MG TABLET (FP) PO SCH ×2 (09:41→22:09)
[2018-04-06] MEDS: PRENATAL VITAMINS W/ FOLIC ACID TABLET (FP) PO SCH (09:41)
[2018-04-06] MEDS: PATIENT'S OWN MED:DOLUTEGRAVIR SODIUM 50 MG TABLET (NON-FORMULARY) PO SCH (09:42)
[2018-04-06] MEDS: OXYBUTYNIN CHLORIDE 5 MG TABLET PO SCH (09:43)
[2018-04-06] MEDS: FENOFIBRIC ACID 45 MG CAP PO SCH (09:43)
[2018-04-06] MEDS ORDERED: METHADONE HCL 10 MG TABLET (FOR DETOX USE ONLY) PO ONE (10:00)
[2018-04-06 10:12] LABS: ANION GAP 8 MMOL/L (8-16); BLOOD UREA NITROGEN 17 mg/dL (7-18); CHLORIDE 103 mmol/L (98-107); CO2 26 mmol/L (21-32); CREATININE 1.7 mg/dL (0.55-1.3); GLUCOSE,RANDOM 92 mg/dL (74-106); SODIUM 137 mmol/L (136-145)
[2018-04-06] MEDS: MARAVIROC 150 MG TAB PO SCH ×2 (10:19→22:10)
--- NOTE | 2018-04-06 11:54 | PN ---
S Progress Note (SOAP) Subjective: feeling better mild body ache no joints pain able to tolerated food better tremor sweat Objective: 04/06/18 11:53 Vital Signs Temperature 97.9 F 04/06/18 09:24 Pulse Rate 60 04/06/18 09:24 Respiratory Rate 18 04/06/18 09:24 Blood Pressure 98/59 L 04/06/18 09:24 O2 Sat by Pulse Oximetry (%) Laboratory Last Values WBC 4.3 K/mm3 (4.0-10.0) 04/04/18 08:00 RBC 4.30 M/mm3 (4.00-5.60) 04/04/18 08:00 Hgb 12.1 GM/dL (11.7-16.9) 04/04/18 08:00 Hct 38.0 % (35.4-49) 04/04/18 08:00 MCV 88.2 fl (80-96) 04/04/18 08:00 MCH 28.2 pg (25.7-33.7) 04/04/18 08:00 MCHC 32.0 g/dl (32.0-35.9) 04/04/18 08:00 RDW 14.8 % (11.9-15.9) 04/04/18 08:00 Plt Count 178 K/MM3 (134-434) 04/04/18 08:00 MPV 10.1 fl (7.5-11.1) 04/04/18 08:00 Sodium 137 mmol/L (136-145) 04/06/18 07:00 Potassium 5.0 mmol/L (3.5-5.1) 04/06/18 07:00 Chloride 103 mmol/L (98-107) 04/06/18 07:00 Carbon Dioxide 26 mmol/L (21-32) 04/06/18 07:00 Anion Gap 8 MMOL/L (8-16) 04/06/18 07:00 BUN 17 mg/dL (7-18) 04/06/18 07:00 Creatinine 1.7 mg/dL (0.55-1.3) H 04/06/18 07:00 Creat Clearance w eGFR 40.65 (>60) 04/06/18 07:00 Random Glucose 92 mg/dL (74-106) 04/06/18 07:00 Calcium 9.0 mg/dL (8.5-10.1) 04/06/18 07:00 Total Bilirubin 0.4 mg/dL (0.2-1) 04/04/18 08:00 AST 18 U/L (15-37) 04/04/18 08:00 ALT 21 U/L (13-61) 04/04/18 08:00 Alkaline Phosphatase 75 U/L (45-117) 04/04/18 08:00 Total Protein 6.8 g/dl (6.4-8.2) 04/04/18 08:00 Albumin 3.4 g/dl (3.4-5.0) 04/04/18 08:00 RPR Titer Nonreactive (NONREACTIVE) 04/04/18 08:00 lab noted Assessment: 04/06/18 11:54 mild withdrawal sx Plan: continue detox
[2018-04-06] MEDS: THIAMINE HCL 100 MG TABLET (FP) PO SCH (22:09)
[2018-04-06] MEDS: ATORVASTATIN CA 20 MG TABLET (FP) PO SCH (22:09)
[2018-04-07] MEDS: AMOX TR/POT CLAV 500MG/125MG TABLETS (FP) PO SCH (05:45)
[2018-04-07] MEDS ORDERED: METHADONE HCL 5 MG TABLET (FOR DETOX USE ONLY) PO ONE (06:00)
[2018-04-07 06:28] VITALS: BP 96/63; PULSE 52; TEMP 99
[2018-04-07] MEDS: ASPIRIN 81 MG CHEWABLE TABLETS PO SCH (10:57)
[2018-04-07] MEDS: OXYBUTYNIN CHLORIDE 5 MG TABLET PO SCH (10:57)
[2018-04-07] MEDS: RITONAVIR 100 MG TABLET PO SCH (10:58)
[2018-04-07] MEDS: CLOPIDOGREL BISULFATE 75 MG TABLET (FP) PO SCH (10:58)
[2018-04-07] MEDS: DARUNAVIR ETHANOLATE 600 MG TAB PO SCH (10:58)
[2018-04-07] MEDS: METOPROLOL TARTRATE 25 MG TABLET (FP) PO SCH (10:58)
[2018-04-07] MEDS: PRENATAL VITAMINS W/ FOLIC ACID TABLET (FP) PO SCH (10:58)
[2018-04-07] MEDS: PATIENT'S OWN MED:DOLUTEGRAVIR SODIUM 50 MG TABLET (NON-FORMULARY) PO SCH (10:59)
[2018-04-07] MEDS: MARAVIROC 150 MG TAB PO SCH (10:59)
[2018-04-07] MEDS: FENOFIBRIC ACID 45 MG CAP PO SCH (10:59)
--- NOTE | 2018-04-07 12:50 | DS ---
[facility] Detox Discharge Summary Admission Date: 04/03/18 Discharge Date: 04/07/18 - History Present History: Opioid Dependence Additional Comments: 63 years old male admitted on 04/03/18 for opiate withdrawal stabilization completed detox regimen alert aftercare Dr. Lee Pertinent Past History: patient agrees to return to his infectious disease specialist for medical mental and addiction issues - Physical Exam Results Vital Signs: Vital Signs Temperature 99.0 F 04/07/18 06:28 Pulse Rate 52 L 04/07/18 06:28 Respiratory Rate 16 04/07/18 06:28 Blood Pressure 96/63 04/07/18 06:28 O2 Sat by Pulse Oximetry (%) Pertinent Admission Physical Exam Findings: opiate withdrawal sx Laboratory Last Values WBC 4.3 K/mm3 (4.0-10.0) 04/04/18 08:00 RBC 4.30 M/mm3 (4.00-5.60) 04/04/18 08:00 Hgb 12.1 GM/dL (11.7-16.9) 04/04/18 08:00 Hct 38.0 % (35.4-49) 04/04/18 08:00 MCV 88.2 fl (80-96) 04/04/18 08:00 MCH 28.2 pg (25.7-33.7) 04/04/18 08:00 MCHC 32.0 g/dl (32.0-35.9) 04/04/18 08:00 RDW 14.8 % (11.9-15.9) 04/04/18 08:00 Plt Count 178 K/MM3 (134-434) 04/04/18 08:00 MPV 10.1 fl (7.5-11.1) 04/04/18 08:00 Sodium 137 mmol/L (136-145) 04/06/18 07:00 Potassium 5.0 mmol/L (3.5-5.1) 04/06/18 07:00 Chloride 103 mmol/L (98-107) 04/06/18 07:00 Carbon Dioxide 26 mmol/L (21-32) 04/06/18 07:00 Anion Gap 8 MMOL/L (8-16) 04/06/18 07:00 BUN 17 mg/dL (7-18) 04/06/18 07:00 Creatinine 1.7 mg/dL (0.55-1.3) H 04/06/18 07:00 Creat Clearance w eGFR 40.65 (>60) 04/06/18 07:00 Random Glucose 92 mg/dL (74-106) 04/06/18 07:00 Calcium 9.0 mg/dL (8.5-10.1) 04/06/18 07:00 Total Bilirubin 0.4 mg/dL (0.2-1) 04/04/18 08:00 AST 18 U/L (15-37) 04/04/18 08:00 ALT 21 U/L (13-61) 04/04/18 08:00 Alkaline Phosphatase 75 U/L (45-117) 04/04/18 08:00 Total Protein 6.8 g/dl (6.4-8.2) 04/04/18 08:00 Albumin 3.4 g/dl (3.4-5.0) 04/04/18 08:00 RPR Titer Nonreactive (NONREACTIVE) 04/04/18 08:00 lab noted - Treatment Hospital Course: Detox Protocol Followed, Detoxed Safely, Responded well, Discharged Condition Good, Rehab Referral Accepted Patient has Accepted a Rehab Referral to: Dr. Lee - Medication Discharge Medications: Ambulatory Orders Aspirin [ASA -] 81 mg PO DAILY 08/23/16 Atorvastatin Ca [Lipitor] 20 mg PO HS 08/23/16 Darunavir Ethanolate [Prezista -] 600 mg PO BID 08/23/16 Maraviroc [Selzentry -] 150 mg PO BID 08/23/16 Ritonavir [Norvir -] 100 mg PO BID 08/23/16 Dolutegravir Sodium [Tivicay] 50 mg PO DAILY 02/16/18 Amoxicillin/Potassium Clav [Amox-Clav 500-125 mg Tablet] 1 each PO Q8H #7 tablet 04/06/18 Clopidogrel Bisulfate [Clopidogrel] 75 mg PO DAILY #30 tablet 04/06/18 Fenofibrate Nanocrystallized [Fenofibrate] 54 mg PO DAILY #30 tablet 04/06/18 Lisinopril [Zestril] 2.5 mg PO DAILY #14 tablet 04/06/18 Metoprolol Tartrate [Lopressor -] 25 mg PO BID #60 tablet 04/06/18 Nitroglycerin Sublingual [Nitrostat -] 0.4 mg SL PRN #14 tab 04/06/18 Oxybutynin Chloride [Ditropan -] 5 mg PO DAILY #30 tablet 04/06/18 - Diagnosis (1) Opioid dependence with withdrawal Status: Acute (2) Renal insufficiency Status: Chronic (3) Substance induced mood disorder Status: Suspected (4) HIV (human immunodeficiency virus infection) Status: Chronic (5) Hep C w/o coma, chronic Status: Chronic (6) Hypertension Status: Chronic Qualifiers: Hypertension type: essential hypertension Qualified Code(s): I10 - Essential (primary) hypertension (7) Nicotine dependence Status: Acute Qualifiers: Nicotine product type: cigarettes Substance use status: in withdrawal Qualified Code(s): F17.213 - Nicotine dependence, cigarettes, with withdrawal (8) PPD positive Status: Resolved (9) Weight loss Status: Chronic - AMA Did Patient Leave Against Medical Advice: No
== END 2018-04-07 09:15 | disposition home or self-care (01) | DRG 897 ==
LOC: YASAS 10:32 → Y3N 12:55
PROC: HZ2ZZZZ Detoxification Services for Substance Abuse Treatment (ICD-10-PCS; principal; 2018-04-03)
DX: F11.23 Opioid dependence with withdrawal (principal); N17.9 Acute kidney failure, unspecified; F17.213 Nicotine dependence, cigarettes, with withdrawal; F19.24 Other psychoactive substance dependence with psychoactive substance-induced mood disorder; Z21 Asymptomatic human immunodeficiency virus [HIV] infection status; I25.10 Atherosclerotic heart disease of native coronary artery without angina pectoris; I13.10 Hypertensive heart and chronic kidney disease without heart failure, with stage 1 through stage 4 chronic kidney disease, or unspecified chronic kidney disease; N18.9 Chronic kidney disease, unspecified; Z95.5 Presence of coronary angioplasty implant and graft; B18.2 Chronic viral hepatitis C; R76.11 Nonspecific reaction to tuberculin skin test without active tuberculosis; R63.4 Abnormal weight loss; Z68.24 Body mass index [BMI] 24.0-24.9, adult; Z79.01 Long term (current) use of anticoagulants
CPT/HCPCS: 36415; 80048; 80053; 85027; 86593

== ENCOUNTER 2018-05-21 16:20 | Inpatient (IN) | payer OTHER ==
[2018-05-21 16:57] VITALS: BMI 25.7
--- NOTE | 2018-05-21 18:49 | HP ---
COWS - Scale Resting Pulse: 1= [place] 81-100 Sweatin= Chills/Flushing Restless Observation: 0= Sits Still Pupil Size: 0= Normal to Room Light Bone or Joint Aches: 1= Mild Discomfort Runny Nose/ Eye Tearin= Runny Nose/Eyes GI Upset > 30mins: 2= Nausea/Diarrhea Tremor Observation: 2= Slight Tremor Visible Yawning Observation: 1= 1-2x During Session Anxiety or Irritability: 2=Irritable/Anxious Goose Flesh Skin: 3=Piloerection COWS Score: 15 CIWA Score - Admission Criteria [facility] Guidelines: Admission for Medically Managed Detox: Requires at least one of the followin. CIWA greater than 12 2. Seizures within the past 24 hours 3. Delirium tremens within the past 24 hours 4. Hallucinations within the past 24 hours 5. Acute intervention needed for co occurring medical disorder 6. Acute intervention needed for co occurring psychiatric disorder 7. Severe withdrawal that cannot be handled at a lower level of care (continued vomiting, continued diarrhea, abnormal vital signs) requiring intravenous medication and/or fluids 8. Admission ROS [facility] Chief Complaint: "I am tried of using Heroin." Patient is here for Detox from Heroin. Allergies/Adverse Reactions: Allergies Allergy/AdvReac Type Severity Reaction Status Date / Time No Known Drug Allergies Allergy Verified 05/21/18 17:14 History of Present Illness: Patient is a 63 Yo male here fro Detox from Heroin. Patient has had several previous Detox admissions at [facility] (Last: 03/2018, Completed). Patient had a Detox admssion at other location 2-3 years ago, but unable to recall name of Facility at this time. Below in I-Stop Report, it is noted that Patient was prescribed Xanax by outside Medical Provider. However, according to Patient, He has not taken Xanax for the last three weeks. Patient advised to Follow-Up with Drs. Colindres / Leodan after discharge from Detox (for Opiates) for further evaluation for history of Prescription of Xanax. Patient verbalized understanding of recommendation. Confidential Drug Utilization Report Search Terms: Maykel Alexander, 1955 Search Date: 05/21/2018 06:43:38 PM The Drug Utilization Report below displays all of the controlled substance prescriptions, if any, that your patient has filled in the last twelve months. The information displayed on this report is compiled from pharmacy submissions to the Department, and accurately reflects the information as submitted by the pharmacies. This report was requested by: Dionte Elizabeth | Reference #: [id number] You have not added a CLYDE number. Keeping your CLYDE number(s) up to date on the My CLYDE Numbers page will enable the separation of your prescriptions from others ' in the search results. Others' Prescriptions Patient Name: Maykel Alexander Date: 1955 Address: [address] [place] [address] Sex: Male Rx Written Rx Dispensed Drug Quantity Days Supply Prescriber Name 04/24/2018 04/24/2018 alprazolam 1 mg tablet 30 30 BernadineJesus NP 03/27/2018 03/27/2018 alprazolam 1 mg tablet 30 30 BernadineJesus NP 03/02/2018 03/02/2018 alprazolam 1 mg tablet 30 30 MarkhasinaSallie MD 02/02/2018 02/02/2018 alprazolam 1 mg tablet 30 30 MarkhasinaSallie MD 01/05/2018 01/05/2018 alprazolam 1 mg tablet 30 30 Markhasina, Sallie HERNANDEZ 12/01/2017 12/02/2017 alprazolam 1 mg tablet 30 30 Markhasina, Sallie HERNANDEZ 11/03/2017 11/03/2017 alprazolam 1 mg tablet 30 30 Markhasina, Sallie HERNANDEZ 10/06/2017 10/06/2017 alprazolam 1 mg tablet 30 30 Markhasina, Sallie HERNANDEZ 09/01/2017 09/01/2017 alprazolam 1 mg tablet 30 30 Markhasina, Sallie HERNANDEZ 07/04/2017 07/07/2017 alprazolam 1 mg tablet 30 30 Markhasina, Sallie HERNANDEZ 06/09/2017 06/09/2017 alprazolam 1 mg tablet 30 30 MarkhasinSallie stover MD * - Drugs marked with an asterisk are compound drugs. If the compound drug is made up of more than one controlled substance, then each controlled substance will be a separate row in the table. Exam Limitations: No Limitations - Ebola screening Have you traveled outside of the country in the last 21 days: No (N) Have you had contact with anyone from an Ebola affected area: No Have you been sick,other than usual withdrawal symptoms: No Do you have a fever: No - Review of Systems Constitutional: Chills, Diaphoresis, Fever, Malaise, Night Sweats, Changes in sleep, Unintentional Wgt. Loss (Lost approx. 25 lbs. over last 1 month.) EENT: reports: No Symptoms Reported Respiratory: reports: Cough (Occasionally at Night.), SOB with Exertion ( Occasional.) Cardiac: reports: Palpitations (Occasional.), Syncope (1 Epsisode, Approx. 3 weeks ago, Patient was evaluated at [place], [place].) GI: reports: Nausea, Poor Appetite, Vomiting, Indigestion (Heartburn.) : reports: No Symptoms Reported Musculoskeletal: reports: Back Pain Integumentary: reports: Sweating Neuro: reports: Tremors Endocrine: reports: No Symptoms Reported Hematology: reports: No Symptoms Reported Psychiatric: reports: Judgement Intact, Mood/Affect Appropiate, Anxious, Depressed (Occasional Feelings of Sadness due to the Passing of his Mother.), Disorientated (To Current Day / Date.) Other Systems: Reviewed and Negative Patient History - Patient Medical History Hx Anemia: No Hx Asthma: No Hx Chronic Obstructive Pulmonary Disease (COPD): No Hx Cancer: No Hx Cardiac Disorders: Yes (CAD with Stent Placement 2015) Hx Congestive Heart Failure: No Hx Hypertension: Yes () Hx Hypercholesterolemia: Yes (Takes Lipitor, does not take every HS.) Hx Pacemaker: No HX Cerebrovascular Accident: No Hx Seizures: No Hx Dementia: No Hx Diabetes: No Hx Gastrointestinal Disorders: No Hx Liver Disease: Yes (Hep C, Completed Treatment in 2016. VL Undetectable.) Hx Genitourinary Disorders: No Hx Sexually Transmitted Disorders: Yes (HIV; Diagnosed in 1994) Hx Renal Disease (ESRD): No Hx Thyroid Disease: No Hx Human Immunodeficiency Virus (HIV): Yes (SINCE 1994; ON MED.) Hx Hepatitis C: Yes (TREATED;UNDETECTABLE.) Hx Depression: No (Occasional Feelings of Sadness, No Treatment.) Hx Suicide Attempt: No (PATIENT DENEIS CURRENT SI / HI.) Hx Bipolar Disorder: No Hx Schizophrenia: No Other Medical History: DENIES. - Patient Surgical History Past Surgical History: Yes Hx Neurologic Surgery: No Hx Cataract Extraction: No Hx Cardiac Surgery: Yes (1 stent in 2016) Hx Lung Surgery: No Hx Breast Surgery: No Hx Breast Biopsy: No Hx Abdominal Surgery: No Hx Appendectomy: No Hx Cholecystectomy: No Hx Genitourinary Surgery: No Hx Section: No Hx Orthopedic Surgery: No Other Surgical History: DENIES. Anesthesia Reaction: No - PPD History Previous Implant?: Yes Documented Results: Negative w/proof Implanted On Prior [facility] Admission?: Yes Date: 02/18/18 Results: 0 mm PPD to be Administered?: No - Reproductive History Patient is a Female of Child Bearing Age (11 -55 yrs old): No (PATIENT IS MALE.) - Smoking Cessation Smoking history: Current every day smoker Have you smoked in the past 12 months: Yes Aproximately how many cigarettes per day: 5 Cigars Per Day: 0 Hx Chewing Tobacco Use: No Initiated information on smoking cessation: Yes 'Breaking Loose' booklet given: 05/21/18 (GIVEN ON UNIT.) - Substance & Tx. History Hx Alcohol Use: Yes Hx Substance Use: Yes Substance Use Type: Heroin, Prescribed (Xanax, not taken for last 3 weeks.) Hx Substance Use Treatment: Yes (Previous Detox Admssions at [facility] (Last: 03/2018 ).) - Substances Abused Heroin Route: Inhalation Frequency: Daily Amount used: 1-2 bags Age of first use: 14 Date of Last Use: 05/20/18 Family Disease History - Family Disease History Family Disease History: Diabetes: Father (HTN, [place] -), Mother (HTN, [place]- ), Heart Disease: Grandparent (), Other: Father, Mother Admission Physical Exam [facility] - Vital Signs Vital Signs: Vital Signs - 24 hr 05/21/18 16:55 Temperature 97.7 F Pulse Rate 85 Respiratory 18 Rate Blood Pressure 96/61 - Physical General Appearance: Yes: No Apparent Distress, Nourished, Appropriately Dressed , Tremorous, Anxious HEENTM: Yes: Hearing grossly Normal, Normocephalic, Normal Voice, MICHELLE, Pharynx Normal Respiratory: Yes: Chest Non-Tender, Lungs Clear, No Respiratory Distress, No Accessory Muscle Use Neck: Yes: No masses,lesions,Nodules, Supple, Trachea in good position Breast: Yes: Breast Exam Deferred Cardiology: Yes: Regular Rhythm, Regular Rate, S1, S2 Abdominal: Yes: Normal Bowel Sounds, Non Tender, Flat, Soft Genitourinary: Yes: Within Normal Limits Back: Yes: CVA Tenderness, Decreased Range of Motion Musculoskeletal: Yes: Gait Steady, Back pain Extremities: Yes: Normal Capillary Refill, Normal Range of Motion, Non-Tender, Tremors Neurological: Yes: Alert, Normal Mood/Affect, Normal Response, Disoriented (To Current Day / Date.) Integumentary: Yes: Normal Color, Dry, Warm Lymphatic: Yes: Within Normal Limits - Diagnostic (1) Nicotine dependence Current Visit: Yes Status: Chronic Qualifiers: Nicotine product type: cigarettes Substance use status: uncomplicated Qualified Code(s): F17.210 - Nicotine dependence, cigarettes, uncomplicated (2) Opioid dependence with withdrawal Current Visit: Yes Status: Acute (3) HIV (human immunodeficiency virus infection) Current Visit: Yes Status: Chronic Qualifiers: HIV symptom status: unspecified Qualified Code(s): B20 - Human immunodeficiency virus [HIV] disease (4) HLD (hyperlipidemia) Current Visit: Yes Status: Chronic Qualifiers: Hyperlipidemia type: unspecified Qualified Code(s): E78.5 - Hyperlipidemia , unspecified (5) Hep C w/o coma, chronic Current Visit: Yes Status: Chronic Comment: COMPLETED TREATMENT, 2015. (6) Hypertension Current Visit: Yes Status: Chronic Qualifiers: Hypertension type: essential hypertension Qualified Code(s): I10 - Essential (primary) hypertension (7) S/P angioplasty with stent Current Visit: Yes Status: Chronic (8) Acid reflux Current Visit: Yes Status: Chronic Qualifiers: Esophagitis presence: esophagitis presence not specified Qualified Code(s) : K21.9 - Gastro-esophageal reflux disease without esophagitis Cleared for Admission [facility] - Detox or Rehab [facility] Level of Care: Medically Managed Detox Regimen/Protocol: Methadone [facility] Breath Alcohol Content Breath Alcohol Content: 0 Urine Drug Screen - Results Drug Screen Negative: No Urine Drug Screen Results: OPI-Opiates Inpatient Rehab Admission - Rehab Decision to Admit Inpatient rehab admission?: No
[2018-05-21] MEDS ORDERED: MENTHOL/PHENOL 1 EACH UD MM PRN (19:19)
[2018-05-21] MEDS ORDERED: MAG HYDROX/AL HYDROX/SIMETH 30 ML UNIT-DOSE CUP PO PRN (19:19)
[2018-05-21] MEDS ORDERED: MAGNESIUM CITRATE 300 ML BOTTLE PO PRN (19:19)
[2018-05-21] MEDS ORDERED: guaiFENesin/D-METHORPHAN HB 10 ML UNIT-DOSE CUPS PO PRN (19:19)
[2018-05-21] MEDS ORDERED: NICOTINE POLACRILEX 2 MG GUM BC PRN (19:19)
[2018-05-21] MEDS ORDERED: P-EPHED 60MG/TRIPROLIDI 2.5MG TABLET PO PRN (19:19)
[2018-05-21] MEDS ORDERED: LOPERAMIDE HCL 2 MG CAPSULE PO PRN (19:19)
[2018-05-21] MEDS ORDERED: IBUPROFEN 400 MG TABLET (FP) PO PRN (19:19)
[2018-05-21] MEDS ORDERED: MAGNESIUM HYDROX 2400MG/30ML ORAL SUSPENSION 30 ML CUP PO PRN (19:19)
[2018-05-21] MEDS ORDERED: ACETAMINOPHEN 325 MG TABLET (FP) PO PRN (19:19)
[2018-05-21] MEDS ORDERED: TRIMETHOBENZAMIDE HCL 300 MG CAPSULE PO PRN (19:24)
[2018-05-21] MEDS ORDERED: NITROGLYCERIN SUBLINGUAL 1/150 0.4 MG TAB SL PRN (19:31)
[2018-05-21] MEDS ORDERED: METHADONE HCL 10 MG TABLET (FOR DETOX USE ONLY) PO ONE ×2 (19:45→23:00)
[2018-05-21] MEDS ORDERED: MELATONIN 5 MG TABLETS PO PRN (22:00)
[2018-05-21] MEDS: THIAMINE HCL 100 MG TABLET (FP) PO SCH (22:08)
[2018-05-21] MEDS: ATORVASTATIN CA 20 MG TABLET (FP) PO SCH (22:08)
[2018-05-22] MEDS ORDERED: METHADONE HCL 10 MG TABLET (FOR DETOX USE ONLY) PO ONE (10:00)
[2018-05-22] MEDS ORDERED: PANTOPRAZOLE 20 MG TABLET (FP) PO SCH (10:00)
[2018-05-22] MEDS ORDERED: CLOPIDOGREL BISULFATE 75 MG TABLET (FP) PO SCH (10:00)
[2018-05-22 10:26] LABS: ALBUMIN 3.6 g/dl (3.4-5.0); ALK PHOS 90 U/L (45-117); ANION GAP 7 MMOL/L (8-16); BILIRUBIN,TOTAL 0.2 mg/dL (0.2-1); BLOOD UREA NITROGEN 23 mg/dL (7-18); CALCIUM 8.4 mg/dL (8.5-10.1); CHLORIDE 104 mmol/L (98-107); CO2 25 mmol/L (21-32); CREATININE 1.9 mg/dL (0.55-1.3); GLUCOSE,RANDOM 94 mg/dL (74-106); POTASSIUM 4.3 mmol/L (3.5-5.1); SGOT/AST 16 U/L (15-37); SGPT/ALT 21 U/L (13-61); SODIUM 135 mmol/L (136-145); TOT PROT 6.3 g/dl (6.4-8.2)
[2018-05-22] MEDS: ASPIRIN 81 MG CHEWABLE TABLETS PO SCH (10:30)
[2018-05-22] MEDS: PRENATAL VITAMINS W/ FOLIC ACID TABLET (FP) PO SCH (10:30)
[2018-05-22] MEDS: OXYBUTYNIN CHLORIDE 5 MG TABLET PO SCH (10:31)
[2018-05-22 10:43] LABS: HEMATOCRIT 35.3 % (35.4-49); HEMOGLOBIN 12.1 GM/dL (11.7-16.9); MCH 30.8 pg (25.7-33.7); MCHC 34.3 g/dl (32.0-35.9); MEAN CELL VOLUME 89.9 fl (80-96); MEAN PLT VOLUME 10.3 fl (7.5-11.1); PLATELET COUNT 141 K/MM3 (134-434); RBC 3.93 M/mm3 (4.00-5.60); RDW 15.8 % (11.9-15.9); WHITE BLOOD COUNT 4.4 K/mm3 (4.0-10.0)
[2018-05-22] MEDS ORDERED: DARUNAVIR ETHANOLATE 600 MG TAB PO SCH (12:00)
[2018-05-22] MEDS: NICOTINE 14 MG/24 HOURS TOPICAL PATCH TD SCH (14:36)
[2018-05-22] MEDS: RITONAVIR 100 MG TABLET PO SCH ×2 (14:36→21:37)
[2018-05-22] MEDS: MARAVIROC 150 MG TAB PO SCH ×2 (14:36→21:37)
[2018-05-22] MEDS: DOLUTEGRAVIR SODIUM 50 MG TABLET (NON-FORMULARY) PO SCH ×2 (14:36→21:37)
[2018-05-22] MEDS: FENOFIBRIC ACID 45 MG CAP PO SCH (14:36)
--- NOTE | 2018-05-22 17:37 | PN ---
BHS COWS - Scale Resting Pulse: 1= [place] 81-100 Sweatin= Chills/Flushing Restless Observation: 0= Sits Still Pupil Size: 0= Normal to Room Light Bone or Joint Aches: 2= Severe Diffuse Aches Runny Nose/ Eye Tearin= None GI Upset > 30mins: 0= None Tremor Observation of Outstretched Hands: 2= Slight Tremor Visible Yawning Observation: 1= 1-2x During Session Anxiety or Irritability: 2=Irritable/Anxious Goose Flesh Skin: 3=Piloerection COWS Score: 12 BHS Progress Note (SOAP) Subjective: Sweating, H/A, Fatigue, Tremors. Objective: PATIENT A & O X 3, OBSERVED AMBULATING ON UNIT. IN NO ACUTE DISTRESS. PATIENT APPEARED LETHARGIC ON UNIT TODAY. AMNMONIA LEVEL ORDERED. 05/22/18 17:37 Vital Signs Temperature 97.7 F 05/22/18 14:30 Pulse Rate 81 05/22/18 14:30 Respiratory Rate 20 05/22/18 14:30 Blood Pressure 113/70 05/22/18 14:30 O2 Sat by Pulse Oximetry (%) Laboratory Tests 05/22/18 05/22/18 05/22/18 06:30 06:30 06:30 WBC 4.4 RBC 3.93 L Hgb 12.1 Hct 35.3 L MCV 89.9 MCH 30.8 MCHC 34.3 RDW 15.8 Plt Count 141 D MPV 10.3 Sodium 135 L Potassium 4.3 Chloride 104 Carbon Dioxide 25 Anion Gap 7 L BUN 23 H Creatinine 1.9 H Creat Clearance w eGFR 35.76 Random Glucose 94 Calcium 8.4 L Total Bilirubin 0.2 AST 16 ALT 21 Alkaline Phosphatase 90 Ammonia Total Protein 6.3 L Albumin 3.6 RPR Titer Nonreactive 05/22/18 10:40 WBC RBC Hgb Hct MCV MCH MCHC RDW Plt Count MPV Sodium Potassium Chloride Carbon Dioxide Anion Gap BUN Creatinine Creat Clearance w eGFR Random Glucose Calcium Total Bilirubin AST ALT Alkaline Phosphatase Ammonia 31.20 Total Protein Albumin RPR Titer LABS NOTED. AMMONIA LEVEL NOTED TO BE WITHIN NORMAL RANGE. 05/22/18 17:39 Assessment: 05/22/18 17:38 WITHDRAWAL SYMPTOMS. Plan: CONTINUE DETOX. PRESCRIBED ANTIHYPERTENSIVE MEDICATION THAT PATIENT IS PRESCRIBED ON AN OUTPATIENT BASIS HELD FOR TIME BEING DUE TO BP READINGS THAT ARE IN LOW TO NORMAL RANGE THUS FAR. WILL CONTINUE TO MONITOR. PRESCRIBED (OUTPATIENT) H.I.V. MEDICATIONS CONFIRMED WITH PHARMACIST AT PATIENT' S PHARMACY ([address] [place] [address]) AND RECONCILED TODAY. D/C MAGNESIUM-CONTAINING MEDS. FOR ABNORMAL ADMISSION RENAL LAB VALUES. BMP ORDERED FOR 05/24/2018 FOR ABNORMAL ADMISSION RENAL LAB VALUES.
[2018-05-22] MEDS: DARUNAVIR ETHANOLATE 600 MG TAB PO SCH (21:38)
[2018-05-22] MEDS: THIAMINE HCL 100 MG TABLET (FP) PO SCH (21:38)
[2018-05-22] MEDS: ATORVASTATIN CA 20 MG TABLET (FP) PO SCH (21:38)
[2018-05-22] MEDS ORDERED: TRIMETHOBENZAMIDE HCL 200MG/2ML INJ IM ONE (23:59)
--- NOTE | 2018-05-23 00:33 | PN ---
[facility] Progress Note Note: As per the nurse Ms. Brett Vincent RN, patient vomited 2 times as per nurse Vital Signs Temperature 98.6 F 05/22/18 21:24 Pulse Rate 78 05/22/18 21:24 Respiratory Rate 18 05/22/18 21:24 Blood Pressure 107/69 05/22/18 21:24 O2 Sat by Pulse Oximetry (%) Action: Tigan 4mg intramuscular ordered
[2018-05-23] MEDS: diazePAM 5 MG TABLET PO PRN ×2 (09:50→23:08)
[2018-05-23] MEDS: CLOPIDOGREL BISULFATE 75 MG TABLET (FP) PO SCH (09:51)
[2018-05-23] MEDS: DOLUTEGRAVIR SODIUM 50 MG TABLET (NON-FORMULARY) PO SCH ×2 (09:52→21:26)
[2018-05-23] MEDS: RITONAVIR 100 MG TABLET PO SCH ×2 (09:52→21:25)
[2018-05-23] MEDS: DARUNAVIR ETHANOLATE 600 MG TAB PO SCH ×2 (09:53→21:25)
[2018-05-23] MEDS ORDERED: METHADONE HCL 5 MG TABLET (FOR DETOX USE ONLY) PO ONE (10:00)
[2018-05-23] MEDS: PRENATAL VITAMINS W/ FOLIC ACID TABLET (FP) PO SCH (10:51)
[2018-05-23] MEDS: ASPIRIN 81 MG CHEWABLE TABLETS PO SCH (10:51)
[2018-05-23] MEDS: FENOFIBRIC ACID 45 MG CAP PO SCH (10:51)
[2018-05-23] MEDS: OXYBUTYNIN CHLORIDE 5 MG TABLET PO SCH (10:51)
[2018-05-23] MEDS: RANITIDINE HCL 150 MG TABLET (FP) PO SCH (10:51)
[2018-05-23] MEDS: MARAVIROC 150 MG TAB PO SCH ×2 (10:52→21:25)
[2018-05-23] MEDS: NICOTINE 14 MG/24 HOURS TOPICAL PATCH TD SCH (10:53)
--- NOTE | 2018-05-23 18:11 | PN ---
[facility] CIWA - CIWA Score Nausea/Vomitin-Mild Nausea/No Vomiting Muscle Tremors: 3 Anxiety: 2 Agitation: 2 Paroxysmal Sweats: 3 Orientation: 0-Oriented Tacttile Disturbances: 0-None Auditory Disturbances: 0-None Visual Disturbances: 0-None Headache: 0-None Present CIWA-Ar Total Score: 11 S Progress Note (SOAP) Subjective: sweats shakes A & ox 3 in no distress no c/o vomiting Vital Signs Temperature 97.0 F L 05/23/18 17:22 Pulse Rate 88 05/23/18 17:22 Respiratory Rate 16 05/23/18 17:22 Blood Pressure 115/76 05/23/18 17:22 O2 Sat by Pulse Oximetry (%) Laboratory Last Values WBC 4.4 K/mm3 (4.0-10.0) 05/22/18 06:30 RBC 3.93 M/mm3 (4.00-5.60) L 05/22/18 06:30 Hgb 12.1 GM/dL (11.7-16.9) 05/22/18 06:30 Hct 35.3 % (35.4-49) L 05/22/18 06:30 MCV 89.9 fl (80-96) 05/22/18 06:30 MCH 30.8 pg (25.7-33.7) 05/22/18 06:30 MCHC 34.3 g/dl (32.0-35.9) 05/22/18 06:30 RDW 15.8 % (11.9-15.9) 05/22/18 06:30 Plt Count 141 K/MM3 (134-434) D 05/22/18 06:30 MPV 10.3 fl (7.5-11.1) 05/22/18 06:30 Sodium 135 mmol/L (136-145) L 05/22/18 06:30 Potassium 4.3 mmol/L (3.5-5.1) 05/22/18 06:30 Chloride 104 mmol/L (98-107) 05/22/18 06:30 Carbon Dioxide 25 mmol/L (21-32) 05/22/18 06:30 Anion Gap 7 MMOL/L (8-16) L 05/22/18 06:30 BUN 23 mg/dL (7-18) H 05/22/18 06:30 Creatinine 1.9 mg/dL (0.55-1.3) H 05/22/18 06:30 Creat Clearance w eGFR 35.76 (>60) 05/22/18 06:30 Random Glucose 94 mg/dL (74-106) 05/22/18 06:30 Calcium 8.4 mg/dL (8.5-10.1) L 05/22/18 06:30 Total Bilirubin 0.2 mg/dL (0.2-1) 05/22/18 06:30 AST 16 U/L (15-37) 05/22/18 06:30 ALT 21 U/L (13-61) 05/22/18 06:30 Alkaline Phosphatase 90 U/L (45-117) 05/22/18 06:30 Ammonia 31.20 umol/L (11-32) 05/22/18 10:40 Total Protein 6.3 g/dl (6.4-8.2) L 05/22/18 06:30 Albumin 3.6 g/dl (3.4-5.0) 05/22/18 06:30 RPR Titer Nonreactive (NONREACTIVE) 05/22/18 06:30 Ammonia level wnl withdrawal sx Continue detox increase hydration
[2018-05-23] MEDS: THIAMINE HCL 100 MG TABLET (FP) PO SCH (21:26)
[2018-05-23] MEDS: ATORVASTATIN CA 20 MG TABLET (FP) PO SCH (21:26)
[2018-05-24] MEDS: CLOPIDOGREL BISULFATE 75 MG TABLET (FP) PO SCH (08:42)
[2018-05-24] MEDS: DOLUTEGRAVIR SODIUM 50 MG TABLET (NON-FORMULARY) PO SCH ×2 (08:42→22:14)
[2018-05-24] MEDS: RITONAVIR 100 MG TABLET PO SCH ×2 (08:42→22:13)
[2018-05-24] MEDS: DARUNAVIR ETHANOLATE 600 MG TAB PO SCH ×5 (08:57→22:13)
[2018-05-24] MEDS ORDERED: RITONAVIR 100 MG TABLET PO SCH (09:00)
[2018-05-24] MEDS ORDERED: DOLUTEGRAVIR SODIUM 50 MG TABLET (NON-FORMULARY) PO SCH (09:00)
--- NOTE | 2018-05-24 09:31 | PN ---
BHS COWS - Scale Resting Pulse: 0= [place] 80 or Below Sweatin= Chills/Flushing Restless Observation: 0= Sits Still Pupil Size: 0= Normal to Room Light Bone or Joint Aches: 2= Severe Diffuse Aches Runny Nose/ Eye Tearin= Nasal Congestion GI Upset > 30mins: 1= Stomach Cramp Tremor Observation of Outstretched Hands: 1= Tremor [place], Not Seen Yawning Observation: 1= 1-2x During Session Anxiety or Irritability: 1=Feels Anxious/Irritable Goose Flesh Skin: 0=Smooth Skin COWS Score: 8 BHS Progress Note (SOAP) Subjective: body aches joints pain tremor sweating patient prefers taking hiv medications at 10 am Objective: 05/24/18 09:27 Vital Signs Temperature 97.2 F L 05/24/18 06:16 Pulse Rate 100 H 05/24/18 09:24 Respiratory Rate 16 05/24/18 09:24 Blood Pressure 103/69 05/24/18 09:24 O2 Sat by Pulse Oximetry (%) Laboratory Last Values WBC 4.4 K/mm3 (4.0-10.0) 05/22/18 06:30 RBC 3.93 M/mm3 (4.00-5.60) L 05/22/18 06:30 Hgb 12.1 GM/dL (11.7-16.9) 05/22/18 06:30 Hct 35.3 % (35.4-49) L 05/22/18 06:30 MCV 89.9 fl (80-96) 05/22/18 06:30 MCH 30.8 pg (25.7-33.7) 05/22/18 06:30 MCHC 34.3 g/dl (32.0-35.9) 05/22/18 06:30 RDW 15.8 % (11.9-15.9) 05/22/18 06:30 Plt Count 141 K/MM3 (134-434) D 05/22/18 06:30 MPV 10.3 fl (7.5-11.1) 05/22/18 06:30 Sodium 135 mmol/L (136-145) L 05/22/18 06:30 Potassium 4.3 mmol/L (3.5-5.1) 05/22/18 06:30 Chloride 104 mmol/L (98-107) 05/22/18 06:30 Carbon Dioxide 25 mmol/L (21-32) 05/22/18 06:30 Anion Gap 7 MMOL/L (8-16) L 05/22/18 06:30 BUN 23 mg/dL (7-18) H 05/22/18 06:30 Creatinine 1.9 mg/dL (0.55-1.3) H 05/22/18 06:30 Creat Clearance w eGFR 35.76 (>60) 05/22/18 06:30 Random Glucose 94 mg/dL (74-106) 05/22/18 06:30 Calcium 8.4 mg/dL (8.5-10.1) L 05/22/18 06:30 Total Bilirubin 0.2 mg/dL (0.2-1) 05/22/18 06:30 AST 16 U/L (15-37) 05/22/18 06:30 ALT 21 U/L (13-61) 05/22/18 06:30 Alkaline Phosphatase 90 U/L (45-117) 05/22/18 06:30 Ammonia 31.20 umol/L (11-32) 05/22/18 10:40 Total Protein 6.3 g/dl (6.4-8.2) L 05/22/18 06:30 Albumin 3.6 g/dl (3.4-5.0) 05/22/18 06:30 RPR Titer Nonreactive (NONREACTIVE) 05/22/18 06:30 patient agrees to bring in lab report to infectious disease specialist for renal function follow up lab noted 05/24/18 09:29 Assessment: 05/24/18 09:30 opiate withdrawal sx 05/24/18 09:30 hiv Plan: continue detox change hiv medications to 10 am
[2018-05-24] MEDS ORDERED: METHADONE HCL 5 MG TABLET (FOR DETOX USE ONLY) PO ONE (10:00)
[2018-05-24] MEDS: ASPIRIN 81 MG CHEWABLE TABLETS PO SCH (10:31)
[2018-05-24] MEDS: RANITIDINE HCL 150 MG TABLET (FP) PO SCH (10:31)
[2018-05-24] MEDS: PRENATAL VITAMINS W/ FOLIC ACID TABLET (FP) PO SCH (10:31)
[2018-05-24] MEDS: MARAVIROC 150 MG TAB PO SCH ×2 (10:31→22:13)
[2018-05-24] MEDS: NICOTINE 14 MG/24 HOURS TOPICAL PATCH TD SCH (10:31)
[2018-05-24] MEDS: OXYBUTYNIN CHLORIDE 5 MG TABLET PO SCH (10:32)
[2018-05-24] MEDS: FENOFIBRIC ACID 45 MG CAP PO SCH (10:32)
[2018-05-24] MEDS: diazePAM 5 MG TABLET PO PRN ×2 (10:34→14:42)
[2018-05-24 10:45] LABS: ANION GAP 3 MMOL/L (8-16); BLOOD UREA NITROGEN 15 mg/dL (7-18); CALCIUM 8.1 mg/dL (8.5-10.1); CHLORIDE 103 mmol/L (98-107); CO2 30 mmol/L (21-32); CREATININE 1.4 mg/dL (0.55-1.3); GLUCOSE,RANDOM 91 mg/dL (74-106); POTASSIUM 3.8 mmol/L (3.5-5.1); SODIUM 135 mmol/L (136-145)
[2018-05-24] MEDS: THIAMINE HCL 100 MG TABLET (FP) PO SCH (22:13)
[2018-05-24] MEDS: ATORVASTATIN CA 20 MG TABLET (FP) PO SCH (22:13)
--- NOTE | 2018-05-25 09:04 | PN ---
BHS COWS - Scale Resting Pulse: 0= [place] 80 or Below Sweatin= Chills/Flushing Restless Observation: 0= Sits Still Pupil Size: 0= Normal to Room Light Bone or Joint Aches: 1= Mild Discomfort Runny Nose/ Eye Tearin= Nasal Congestion GI Upset > 30mins: 1= Stomach Cramp Tremor Observation of Outstretched Hands: 0= None Yawning Observation: 0= None Anxiety or Irritability: 1=Feels Anxious/Irritable Goose Flesh Skin: 0=Smooth Skin COWS Score: 5 BHS Progress Note (SOAP) Subjective: feeling better less body aches mild tremor sleep better at night well-rested social with peers in day room Objective: 05/25/18 09:07 Vital Signs Temperature 98.3 F 05/25/18 06:32 Pulse Rate 79 05/25/18 06:32 Respiratory Rate 18 05/25/18 06:32 Blood Pressure 99/56 L 05/25/18 06:32 O2 Sat by Pulse Oximetry (%) Laboratory Last Values WBC 4.4 K/mm3 (4.0-10.0) 05/22/18 06:30 RBC 3.93 M/mm3 (4.00-5.60) L 05/22/18 06:30 Hgb 12.1 GM/dL (11.7-16.9) 05/22/18 06:30 Hct 35.3 % (35.4-49) L 05/22/18 06:30 MCV 89.9 fl (80-96) 05/22/18 06:30 MCH 30.8 pg (25.7-33.7) 05/22/18 06:30 MCHC 34.3 g/dl (32.0-35.9) 05/22/18 06:30 RDW 15.8 % (11.9-15.9) 05/22/18 06:30 Plt Count 141 K/MM3 (134-434) D 05/22/18 06:30 MPV 10.3 fl (7.5-11.1) 05/22/18 06:30 Sodium 135 mmol/L (136-145) L 05/24/18 07:50 Potassium 3.8 mmol/L (3.5-5.1) 05/24/18 07:50 Chloride 103 mmol/L (98-107) 05/24/18 07:50 Carbon Dioxide 30 mmol/L (21-32) 05/24/18 07:50 Anion Gap 3 MMOL/L (8-16) L 05/24/18 07:50 BUN 15 mg/dL (7-18) 05/24/18 07:50 Creatinine 1.4 mg/dL (0.55-1.3) H 05/24/18 07:50 Creat Clearance w eGFR 50.86 (>60) 05/24/18 07:50 Random Glucose 91 mg/dL (74-106) 05/24/18 07:50 Calcium 8.1 mg/dL (8.5-10.1) L 05/24/18 07:50 Total Bilirubin 0.2 mg/dL (0.2-1) 05/22/18 06:30 AST 16 U/L (15-37) 05/22/18 06:30 ALT 21 U/L (13-61) 05/22/18 06:30 Alkaline Phosphatase 90 U/L (45-117) 05/22/18 06:30 Ammonia 31.20 umol/L (11-32) 05/22/18 10:40 Total Protein 6.3 g/dl (6.4-8.2) L 05/22/18 06:30 Albumin 3.6 g/dl (3.4-5.0) 05/22/18 06:30 RPR Titer Nonreactive (NONREACTIVE) 05/22/18 06:30 lab noted Ca++ rich food Assessment: 05/25/18 09:08 mild withdrawal sx Plan: continue detox encourage shredder picker narcan kit from pharmacy
[2018-05-25] MEDS ORDERED: METHADONE HCL 10 MG TABLET (FOR DETOX USE ONLY) PO ONE (10:00)
[2018-05-25] MEDS: RITONAVIR 100 MG TABLET PO SCH ×2 (10:31→22:25)
[2018-05-25] MEDS: RANITIDINE HCL 150 MG TABLET (FP) PO SCH (10:31)
[2018-05-25] MEDS: ASPIRIN 81 MG CHEWABLE TABLETS PO SCH (10:31)
[2018-05-25] MEDS: PRENATAL VITAMINS W/ FOLIC ACID TABLET (FP) PO SCH (10:31)
[2018-05-25] MEDS: CLOPIDOGREL BISULFATE 75 MG TABLET (FP) PO SCH ×2 (10:32→13:52)
[2018-05-25] MEDS: FENOFIBRIC ACID 45 MG CAP PO SCH (10:32)
[2018-05-25] MEDS: MARAVIROC 150 MG TAB PO SCH ×2 (10:33→23:23)
[2018-05-25] MEDS: OXYBUTYNIN CHLORIDE 5 MG TABLET PO SCH (10:34)
[2018-05-25] MEDS: DOLUTEGRAVIR SODIUM 50 MG TABLET (NON-FORMULARY) PO SCH ×2 (10:36→22:25)
[2018-05-25] MEDS: DARUNAVIR ETHANOLATE 600 MG TAB PO SCH ×2 (10:36→22:25)
[2018-05-25] MEDS: NICOTINE 14 MG/24 HOURS TOPICAL PATCH TD SCH (10:37)
[2018-05-25] MEDS: THIAMINE HCL 100 MG TABLET (FP) PO SCH (22:25)
[2018-05-25] MEDS: ATORVASTATIN CA 20 MG TABLET (FP) PO SCH (22:25)
[2018-05-25] MEDS ORDERED: TRIMETHOBENZAMIDE HCL 200MG/2ML INJ IM ONE (23:41)
--- NOTE | 2018-05-25 23:42 | PN ---
[facility] Progress Note Note: Patient vomited x 1 Vital Signs Temperature 99.5 F 05/25/18 21:26 Pulse Rate 88 05/25/18 21:26 Respiratory Rate 18 05/25/18 21:26 Blood Pressure 98/67 05/25/18 21:26 O2 Sat by Pulse Oximetry (%) Action: Tigan 200mg intramuscular ordered
[2018-05-26] MEDS ORDERED: METHADONE HCL 5 MG TABLET (FOR DETOX USE ONLY) PO ONE (06:00)
[2018-05-26] MEDS: MARAVIROC 150 MG TAB PO SCH (10:30)
[2018-05-26] MEDS: DOLUTEGRAVIR SODIUM 50 MG TABLET (NON-FORMULARY) PO SCH (10:33)
[2018-05-26] MEDS: PRENATAL VITAMINS W/ FOLIC ACID TABLET (FP) PO SCH (10:33)
[2018-05-26] MEDS: RANITIDINE HCL 150 MG TABLET (FP) PO SCH (10:33)
[2018-05-26] MEDS: CLOPIDOGREL BISULFATE 75 MG TABLET (FP) PO SCH (10:33)
[2018-05-26] MEDS: ASPIRIN 81 MG CHEWABLE TABLETS PO SCH (10:33)
[2018-05-26] MEDS: FENOFIBRIC ACID 45 MG CAP PO SCH (10:33)
[2018-05-26] MEDS: OXYBUTYNIN CHLORIDE 5 MG TABLET PO SCH (10:34)
[2018-05-26] MEDS: RITONAVIR 100 MG TABLET PO SCH (10:34)
[2018-05-26] MEDS: DARUNAVIR ETHANOLATE 600 MG TAB PO SCH (10:36)
[2018-05-26] MEDS: NICOTINE 14 MG/24 HOURS TOPICAL PATCH TD SCH (10:36)
--- NOTE | 2018-05-26 11:52 | HP ---
BHARGAV HERNANDEZ Rehab Assess/Revision - Admission History Admitted to Rehab from: [facility] Date of Admission to Rehab: 05/26/18 - Vital signs Vital Signs: Vital Signs Period Temp Pulse Resp BP Sys/Bernstein Pulse Ox Last 24 Hr 96.9 F-99.5 F 80-88 16-18 98-112/65-78 - Findings Detox History & Physical reviewed: Yes Concur with findings: Yes Comments/Additional Findings: transferred from detox to rehab admission as per protocol Inpatient Rehab Admission - Rehab Decision to Admit Inpatient rehab admission?: Yes - Initial Determination Are CD services needed?: Yes Free of communicable disease: Yes Not in need of hospitalization: Yes - Rehab Admission Criteria Previous failed treatment: Yes Poor recovery environment: Yes Comorbidities: Yes Lacks judgement: No Patient is meeting Inpatient Rehab admission criteria:: Yes
--- NOTE | 2018-05-26 11:58 | DS ---
[facility] Detox Discharge Summary Admission Date: 05/21/18 Discharge Date: 05/26/18 - History Present History: Opioid Dependence Additional Comments: 63 years old male admitted on 05/21/18 for opiate withdrawal stabilization completed opiate detox regimen aftercare [facility] Pertinent Past History: received requesting that the patient is managed medicare needed to be discharged from detox then admitted to rehab - Physical Exam Results Vital Signs: Vital Signs Temperature 97.4 F L 05/26/18 09:59 Pulse Rate 80 05/26/18 09:59 Respiratory Rate 16 05/26/18 09:59 Blood Pressure 112/78 05/26/18 09:59 O2 Sat by Pulse Oximetry (%) Pertinent Admission Physical Exam Findings: opiate withdrawal sx Laboratory Last Values WBC 4.4 K/mm3 (4.0-10.0) 05/22/18 06:30 RBC 3.93 M/mm3 (4.00-5.60) L 05/22/18 06:30 Hgb 12.1 GM/dL (11.7-16.9) 05/22/18 06:30 Hct 35.3 % (35.4-49) L 05/22/18 06:30 MCV 89.9 fl (80-96) 05/22/18 06:30 MCH 30.8 pg (25.7-33.7) 05/22/18 06:30 MCHC 34.3 g/dl (32.0-35.9) 05/22/18 06:30 RDW 15.8 % (11.9-15.9) 05/22/18 06:30 Plt Count 141 K/MM3 (134-434) D 05/22/18 06:30 MPV 10.3 fl (7.5-11.1) 05/22/18 06:30 Sodium 135 mmol/L (136-145) L 05/24/18 07:50 Potassium 3.8 mmol/L (3.5-5.1) 05/24/18 07:50 Chloride 103 mmol/L (98-107) 05/24/18 07:50 Carbon Dioxide 30 mmol/L (21-32) 05/24/18 07:50 Anion Gap 3 MMOL/L (8-16) L 05/24/18 07:50 BUN 15 mg/dL (7-18) 05/24/18 07:50 Creatinine 1.4 mg/dL (0.55-1.3) H 05/24/18 07:50 Creat Clearance w eGFR 50.86 (>60) 05/24/18 07:50 Random Glucose 91 mg/dL (74-106) 05/24/18 07:50 Calcium 8.1 mg/dL (8.5-10.1) L 05/24/18 07:50 Total Bilirubin 0.2 mg/dL (0.2-1) 05/22/18 06:30 AST 16 U/L (15-37) 05/22/18 06:30 ALT 21 U/L (13-61) 05/22/18 06:30 Alkaline Phosphatase 90 U/L (45-117) 05/22/18 06:30 Ammonia 31.20 umol/L (11-32) 05/22/18 10:40 Total Protein 6.3 g/dl (6.4-8.2) L 05/22/18 06:30 Albumin 3.6 g/dl (3.4-5.0) 05/22/18 06:30 RPR Titer Nonreactive (NONREACTIVE) 05/22/18 06:30 lab noted - Treatment Hospital Course: Detox Protocol Followed, Detoxed Safely, Responded well, Discharged Condition Good, Rehab Referral Accepted Patient has Accepted a Rehab Referral to: [facility] - Medication Discharge Medications: Ambulatory Orders Aspirin [ASA -] 81 mg PO DAILY 08/23/16 Darunavir Ethanolate [Prezista -] 600 mg PO BID 08/23/16 Maraviroc [Selzentry -] 150 mg PO BID 08/23/16 Ritonavir [Norvir -] 100 mg PO BID 08/23/16 Dolutegravir Sodium [Tivicay] 50 mg PO BID 02/16/18 Fenofibrate Nanocrystallized [Fenofibrate] 54 mg PO DAILY #30 tablet 04/06/18 Lisinopril [Zestril] 2.5 mg PO DAILY #14 tablet 04/06/18 Pantoprazole Sodium [Protonix -] 20 mg PO DAILY 05/21/18 Atorvastatin Ca [Lipitor] 20 mg PO HS #14 tablet 05/25/18 Clopidogrel Bisulfate [Clopidogrel] 75 mg PO DAILY #14 tablet 05/25/18 Metoprolol Tartrate [Lopressor -] 25 mg PO BID #30 tablet 05/25/18 Naloxone HCl [Narcan] 4 mg NS ASDIR PRN #1 spray 05/25/18 Nitroglycerin Sublingual [Nitrostat -] 0.4 mg SL PRN PRN #7 tab 05/25/18 Oxybutynin Chloride [Ditropan -] 5 mg PO DAILY #14 tablet 05/25/18 - Diagnosis (1) Opioid dependence with withdrawal Current Visit: Yes Status: Acute (2) HIV (human immunodeficiency virus infection) Current Visit: Yes Status: Chronic Qualifiers: HIV symptom status: unspecified Qualified Code(s): B20 - Human immunodeficiency virus [HIV] disease (3) HLD (hyperlipidemia) Current Visit: Yes Status: Chronic Qualifiers: Hyperlipidemia type: unspecified Qualified Code(s): E78.5 - Hyperlipidemia , unspecified (4) Hep C w/o coma, chronic Current Visit: Yes Status: Chronic (5) Hypertension Current Visit: Yes Status: Chronic Qualifiers: Hypertension type: essential hypertension Qualified Code(s): I10 - Essential (primary) hypertension (6) Nicotine dependence Current Visit: Yes Status: Acute Qualifiers: Nicotine product type: cigarettes Substance use status: in withdrawal Qualified Code(s): F17.213 - Nicotine dependence, cigarettes, with withdrawal (7) Renal insufficiency Current Visit: Yes Status: Chronic (8) Substance induced mood disorder Current Visit: Yes Status: Suspected (9) PPD positive Current Visit: Yes Status: Resolved - AMA Did Patient Leave Against Medical Advice: No
[2018-05-26 13:27] VITALS: BP 109/79; PULSE 73; TEMP 98.2
== END 2018-05-26 13:38 | disposition other institution (70) | DRG 897 ==
LOC: YASAS 16:20 → Y3N 18:22
PROVIDERS: ADMIT Surgery; ATTEND Surgery
PROC: HZ2ZZZZ Detoxification Services for Substance Abuse Treatment (ICD-10-PCS; principal; 2018-05-21)
DX: F11.23 Opioid dependence with withdrawal (principal); F17.213 Nicotine dependence, cigarettes, with withdrawal; F19.24 Other psychoactive substance dependence with psychoactive substance-induced mood disorder; I10 Essential (primary) hypertension; Z21 Asymptomatic human immunodeficiency virus [HIV] infection status; E78.5 Hyperlipidemia, unspecified; B18.2 Chronic viral hepatitis C; N28.9 Disorder of kidney and ureter, unspecified; R76.11 Nonspecific reaction to tuberculin skin test without active tuberculosis; I25.10 Atherosclerotic heart disease of native coronary artery without angina pectoris; K21.9 Gastro-esophageal reflux disease without esophagitis; Z95.5 Presence of coronary angioplasty implant and graft
CPT/HCPCS: 36415; 80048; 80053; 82140; 85027; 86593

== ENCOUNTER 2018-05-26 13:42 | Inpatient (IN) | payer OTHER ==
--- NOTE | 2018-05-26 11:53 | HP ---
BHARGAV HERNANDEZ Rehab Assess/Revision - Admission History Admitted to Rehab from: [facility] Date of Admission to Rehab: 05/26/18 - Findings Detox History & Physical reviewed: Yes Concur with findings: Yes Comments/Additional Findings: tranferred from detox to rehab admission as per protocol Inpatient Rehab Admission - Rehab Decision to Admit Inpatient rehab admission?: Yes - Initial Determination Are CD services needed?: Yes Free of communicable disease: Yes Not in need of hospitalization: Yes - Rehab Admission Criteria Previous failed treatment: Yes Poor recovery environment: Yes Comorbidities: Yes Lacks judgement: No Patient is meeting Inpatient Rehab admission criteria:: Yes
[~2018-05-26 13:42] MED LIST: ACETAMINOPHEN 325 MG TABLET (FP) PO PRN; IBUPROFEN 400 MG TABLET (FP) PO PRN; LOPERAMIDE HCL 2 MG CAPSULE PO PRN; MAG HYDROX/AL HYDROX/SIMETH 30 ML UNIT-DOSE CUP PO PRN; MAGNESIUM CITRATE 300 ML BOTTLE PO PRN; MAGNESIUM HYDROX 2400MG/30ML ORAL SUSPENSION 30 ML CUP PO PRN; MENTHOL/PHENOL 1 EACH UD MM PRN; NICOTINE POLACRILEX 2 MG GUM BUC PRN; NITROGLYCERIN SUBLINGUAL 1/150 0.4 MG TAB SL PRN; P-EPHED 60MG/TRIPROLIDI 2.5MG TABLET PO PRN; guaiFENesin/D-METHORPHAN HB 10 ML UNIT-DOSE CUPS PO PRN
[2018-05-26] MEDS: NICOTINE 14 MG/24 HOURS TOPICAL PATCH TD SCH (16:14)
[2018-05-26] MEDS: METOPROLOL TARTRATE 50 MG TABLET (FP) PO SCH (21:26)
[2018-05-26] MEDS: ATORVASTATIN CA 20 MG TABLET (FP) PO SCH (21:26)
[2018-05-26] MEDS: THIAMINE HCL 100 MG TABLET (FP) PO SCH (21:26)
[2018-05-26] MEDS: DARUNAVIR ETHANOLATE PO SCH (21:27)
[2018-05-26] MEDS: [UNRECOGNIZED DRUG - OTHER] PO SCH (21:27)
[2018-05-26] MEDS: RITONAVIR PO SCH (21:28)
[2018-05-26] MEDS: DOLUTEGRAVIR SODIUM 50 MG PO SCH (21:28)
[2018-05-26] MEDS ORDERED: MELATONIN 5 MG TABLETS PO PRN (22:00)
[2018-05-27] MEDS ORDERED: ONDANSETRON *ODT* 4 MG TABLET SL PRN (10:02)
--- NOTE | 2018-05-27 10:02 | PN ---
[facility] Progress Note Note: PT IS A NEW ADMISSION HERE WHO COMPLETED DETOX 05/26/18 FOR HEROIN AND REFERRED TO REHAB. PT IS C/O NAUSEA/VOMITING X 2/DIARRHEA, DIZZINESS,FATIGUE. REPORTS LAST VOMITED LAST NIGHT AND DIARRHEA EARLIER THIS MORNING. DENIES STOMACH OR BODY ACHES, RUNNY NOSE. REPORTS DECREASED APPETITE X 3 DAYS. PT REPORTS HE RECEIVED [place] LAST NIGHT. PT IS ALERT O X 3 BUT TIRED LOOKING. Vital Signs - 24 hr 05/26/18 05/26/18 05/27/18 15:50 21:00 00:30 Temperature 98.7 F Pulse Rate 81 71 Respiratory 16 18 Rate Blood Pressure 101/71 112/74 05/27/18 05/27/18 03:30 06:48 Temperature 98.5 F Pulse Rate 73 Respiratory 18 16 Rate Blood Pressure 92/67 OPIATE WITHDRAWAL SX PLAN:ZOFRAN SL DIRECTED, TIGAN IF NOT TOLERATING PO. IMODIUM PRN ENSURE WHEN TOLERATED PO FLUIDS A TOLERATED
[2018-05-27] MEDS: CLOPIDOGREL BISULFATE 75 MG TABLET (FP) PO SCH (10:10)
[2018-05-27] MEDS: LISINOPRIL 5 MG TABLET (FP) PO SCH (10:10)
[2018-05-27] MEDS: ASPIRIN 81 MG CHEWABLE TABLETS PO SCH (10:10)
[2018-05-27] MEDS: METOPROLOL TARTRATE 50 MG TABLET (FP) PO SCH ×2 (10:10→21:30)
[2018-05-27] MEDS: PRENATAL VITAMINS W/ FOLIC ACID TABLET (FP) PO SCH (10:10)
[2018-05-27] MEDS: RITONAVIR PO SCH ×2 (10:13→21:29)
[2018-05-27] MEDS: FENOFIBRIC ACID 45 MG CAP PO SCH (10:13)
[2018-05-27] MEDS: NICOTINE 14 MG/24 HOURS TOPICAL PATCH TD SCH (10:16)
[2018-05-27] MEDS: DOLUTEGRAVIR SODIUM 50 MG PO SCH ×2 (10:16→21:30)
[2018-05-27] MEDS: DARUNAVIR ETHANOLATE PO SCH ×2 (10:39→21:31)
[2018-05-27] MEDS: [UNRECOGNIZED DRUG - OTHER] PO SCH ×2 (10:40→21:29)
[2018-05-27] MEDS: OXYBUTYNIN CHLORIDE 5 MG TABLET PO SCH (12:20)
[2018-05-27] MEDS: THIAMINE HCL 100 MG TABLET (FP) PO SCH (21:28)
[2018-05-27] MEDS: ATORVASTATIN CA 20 MG TABLET (FP) PO SCH (21:28)
[2018-05-28] MEDS: PRENATAL VITAMINS W/ FOLIC ACID TABLET (FP) PO SCH (10:51)
[2018-05-28] MEDS: ASPIRIN 81 MG CHEWABLE TABLETS PO SCH (10:51)
[2018-05-28] MEDS: CLOPIDOGREL BISULFATE 75 MG TABLET (FP) PO SCH (10:52)
[2018-05-28] MEDS: NICOTINE 14 MG/24 HOURS TOPICAL PATCH TD SCH (10:52)
[2018-05-28] MEDS: OXYBUTYNIN CHLORIDE 5 MG TABLET PO SCH (10:52)
[2018-05-28] MEDS: METOPROLOL TARTRATE 50 MG TABLET (FP) PO SCH ×2 (10:53→21:32)
[2018-05-28] MEDS: DOLUTEGRAVIR SODIUM 50 MG PO SCH ×2 (10:53→21:33)
[2018-05-28] MEDS: LISINOPRIL 5 MG TABLET (FP) PO SCH (10:54)
[2018-05-28] MEDS: RITONAVIR PO SCH ×2 (10:54→21:33)
[2018-05-28] MEDS: DARUNAVIR ETHANOLATE PO SCH ×2 (10:57→21:35)
[2018-05-28] MEDS: [UNRECOGNIZED DRUG - OTHER] PO SCH ×2 (10:57→21:34)
[2018-05-28] MEDS: FENOFIBRIC ACID 45 MG CAP PO SCH (10:59)
[2018-05-28] MEDS: ATORVASTATIN CA 20 MG TABLET (FP) PO SCH (21:32)
[2018-05-28] MEDS: THIAMINE HCL 100 MG TABLET (FP) PO SCH (21:32)
[2018-05-29] MEDS: OXYBUTYNIN CHLORIDE 5 MG TABLET PO SCH (10:37)
[2018-05-29] MEDS: METOPROLOL TARTRATE 50 MG TABLET (FP) PO SCH ×2 (10:38→21:37)
[2018-05-29] MEDS: PRENATAL VITAMINS W/ FOLIC ACID TABLET (FP) PO SCH (10:39)
[2018-05-29] MEDS: DOLUTEGRAVIR SODIUM 50 MG PO SCH ×2 (10:39→22:40)
[2018-05-29] MEDS: CLOPIDOGREL BISULFATE 75 MG TABLET (FP) PO SCH (10:39)
[2018-05-29] MEDS: FENOFIBRIC ACID 45 MG CAP PO SCH (10:40)
[2018-05-29] MEDS: RITONAVIR PO SCH ×2 (10:40→22:40)
[2018-05-29] MEDS: LISINOPRIL 5 MG TABLET (FP) PO SCH (10:40)
[2018-05-29] MEDS: NICOTINE 14 MG/24 HOURS TOPICAL PATCH TD SCH (10:40)
[2018-05-29] MEDS: [UNRECOGNIZED DRUG - OTHER] PO SCH ×2 (10:40→22:40)
[2018-05-29] MEDS: ASPIRIN 81 MG CHEWABLE TABLETS PO SCH (10:41)
[2018-05-29] MEDS: DARUNAVIR ETHANOLATE PO SCH ×2 (10:41→21:35)
[2018-05-29] MEDS: ATORVASTATIN CA 20 MG TABLET (FP) PO SCH (21:36)
[2018-05-29] MEDS: THIAMINE HCL 100 MG TABLET (FP) PO SCH (21:36)
[2018-05-30] MEDS: CLOPIDOGREL BISULFATE 75 MG TABLET (FP) PO SCH (09:51)
[2018-05-30] MEDS: LISINOPRIL 5 MG TABLET (FP) PO SCH (09:51)
[2018-05-30] MEDS: PRENATAL VITAMINS W/ FOLIC ACID TABLET (FP) PO SCH (09:51)
[2018-05-30] MEDS: NICOTINE 14 MG/24 HOURS TOPICAL PATCH TD SCH (09:53)
[2018-05-30] MEDS: ASPIRIN 81 MG CHEWABLE TABLETS PO SCH (09:53)
[2018-05-30] MEDS: DARUNAVIR ETHANOLATE PO SCH ×2 (09:53→21:25)
[2018-05-30] MEDS: METOPROLOL TARTRATE 50 MG TABLET (FP) PO SCH ×2 (09:53→21:26)
[2018-05-30] MEDS: [UNRECOGNIZED DRUG - OTHER] PO SCH ×2 (09:55→21:25)
[2018-05-30] MEDS: DOLUTEGRAVIR SODIUM 50 MG PO SCH ×2 (09:56→21:25)
[2018-05-30] MEDS: OXYBUTYNIN CHLORIDE 5 MG TABLET PO SCH (09:56)
[2018-05-30] MEDS: RITONAVIR PO SCH ×2 (09:57→21:26)
[2018-05-30] MEDS: FENOFIBRIC ACID 45 MG CAP PO SCH (09:58)
[2018-05-30] MEDS: ATORVASTATIN CA 20 MG TABLET (FP) PO SCH (21:24)
[2018-05-30] MEDS: THIAMINE HCL 100 MG TABLET (FP) PO SCH (21:24)
[2018-05-31] MEDS: PRENATAL VITAMINS W/ FOLIC ACID TABLET (FP) PO SCH (10:37)
[2018-05-31] MEDS: CLOPIDOGREL BISULFATE 75 MG TABLET (FP) PO SCH (10:37)
[2018-05-31] MEDS: LISINOPRIL 5 MG TABLET (FP) PO SCH (10:37)
[2018-05-31] MEDS: OXYBUTYNIN CHLORIDE 5 MG TABLET PO SCH (10:38)
[2018-05-31] MEDS: METOPROLOL TARTRATE 50 MG TABLET (FP) PO SCH ×2 (10:38→21:25)
[2018-05-31] MEDS: NICOTINE 14 MG/24 HOURS TOPICAL PATCH TD SCH (10:38)
[2018-05-31] MEDS: DARUNAVIR ETHANOLATE PO SCH ×2 (10:39→21:25)
[2018-05-31] MEDS: DOLUTEGRAVIR SODIUM 50 MG PO SCH ×2 (10:39→21:25)
[2018-05-31] MEDS: [UNRECOGNIZED DRUG - OTHER] PO SCH ×2 (10:40→21:24)
[2018-05-31] MEDS: ASPIRIN 81 MG CHEWABLE TABLETS PO SCH (10:41)
[2018-05-31] MEDS: FENOFIBRIC ACID 45 MG CAP PO SCH (10:43)
[2018-05-31] MEDS: RITONAVIR PO SCH ×2 (10:44→21:24)
[2018-05-31] MEDS: THIAMINE HCL 100 MG TABLET (FP) PO SCH (21:24)
[2018-05-31] MEDS: ATORVASTATIN CA 20 MG TABLET (FP) PO SCH (21:24)
[2018-06-01] MEDS: ASPIRIN 81 MG CHEWABLE TABLETS PO SCH (10:24)
[2018-06-01] MEDS: METOPROLOL TARTRATE 50 MG TABLET (FP) PO SCH ×2 (10:24→21:28)
[2018-06-01] MEDS: PRENATAL VITAMINS W/ FOLIC ACID TABLET (FP) PO SCH (10:24)
[2018-06-01] MEDS: CLOPIDOGREL BISULFATE 75 MG TABLET (FP) PO SCH (10:24)
[2018-06-01] MEDS: LISINOPRIL 5 MG TABLET (FP) PO SCH (10:25)
[2018-06-01] MEDS: DOLUTEGRAVIR SODIUM 50 MG PO SCH ×2 (10:25→21:26)
[2018-06-01] MEDS: DARUNAVIR ETHANOLATE PO SCH ×2 (10:25→21:25)
[2018-06-01] MEDS: FENOFIBRIC ACID 45 MG CAP PO SCH (10:26)
[2018-06-01] MEDS: RITONAVIR PO SCH ×2 (10:26→21:26)
[2018-06-01] MEDS: [UNRECOGNIZED DRUG - OTHER] PO SCH ×2 (10:28→21:26)
[2018-06-01] MEDS: NICOTINE 14 MG/24 HOURS TOPICAL PATCH TD SCH (10:29)
[2018-06-01] MEDS: OXYBUTYNIN CHLORIDE 5 MG TABLET PO SCH (10:29)
[2018-06-01] MEDS: ATORVASTATIN CA 20 MG TABLET (FP) PO SCH (21:26)
[2018-06-01] MEDS: THIAMINE HCL 100 MG TABLET (FP) PO SCH (21:28)
[2018-06-02] MEDS: LISINOPRIL 5 MG TABLET (FP) PO SCH (09:59)
[2018-06-02] MEDS: CLOPIDOGREL BISULFATE 75 MG TABLET (FP) PO SCH (09:59)
[2018-06-02] MEDS: PRENATAL VITAMINS W/ FOLIC ACID TABLET (FP) PO SCH (09:59)
[2018-06-02] MEDS: ASPIRIN 81 MG CHEWABLE TABLETS PO SCH (10:00)
[2018-06-02] MEDS: [UNRECOGNIZED DRUG - OTHER] PO SCH ×2 (10:00→21:25)
[2018-06-02] MEDS: FENOFIBRIC ACID 45 MG CAP PO SCH (10:01)
[2018-06-02] MEDS: DOLUTEGRAVIR SODIUM 50 MG PO SCH ×2 (10:01→21:25)
[2018-06-02] MEDS: DARUNAVIR ETHANOLATE PO SCH ×2 (10:01→21:25)
[2018-06-02] MEDS: RITONAVIR PO SCH ×2 (10:01→21:25)
[2018-06-02] MEDS: METOPROLOL TARTRATE 50 MG TABLET (FP) PO SCH ×2 (10:02→21:24)
[2018-06-02] MEDS: NICOTINE 14 MG/24 HOURS TOPICAL PATCH TD SCH (10:03)
[2018-06-02] MEDS: OXYBUTYNIN CHLORIDE 5 MG TABLET PO SCH (10:04)
[2018-06-02] MEDS: ATORVASTATIN CA 20 MG TABLET (FP) PO SCH (21:24)
[2018-06-02] MEDS: THIAMINE HCL 100 MG TABLET (FP) PO SCH (21:24)
[2018-06-03] MEDS: DARUNAVIR ETHANOLATE PO SCH ×2 (12:13→21:26)
[2018-06-03] MEDS: ASPIRIN 81 MG CHEWABLE TABLETS PO SCH (12:13)
[2018-06-03] MEDS: OXYBUTYNIN CHLORIDE 5 MG TABLET PO SCH (12:13)
[2018-06-03] MEDS: METOPROLOL TARTRATE 50 MG TABLET (FP) PO SCH ×2 (12:14→21:27)
[2018-06-03] MEDS: PRENATAL VITAMINS W/ FOLIC ACID TABLET (FP) PO SCH (12:14)
[2018-06-03] MEDS: [UNRECOGNIZED DRUG - OTHER] PO SCH ×2 (12:14→21:26)
[2018-06-03] MEDS: NICOTINE 14 MG/24 HOURS TOPICAL PATCH TD SCH (12:14)
[2018-06-03] MEDS: CLOPIDOGREL BISULFATE 75 MG TABLET (FP) PO SCH (12:14)
[2018-06-03] MEDS: RITONAVIR PO SCH ×2 (12:14→21:26)
[2018-06-03] MEDS: FENOFIBRIC ACID 45 MG CAP PO SCH (12:14)
[2018-06-03] MEDS: LISINOPRIL 5 MG TABLET (FP) PO SCH (12:14)
[2018-06-03] MEDS: DOLUTEGRAVIR SODIUM 50 MG PO SCH ×2 (12:14→21:26)
[2018-06-03] MEDS: THIAMINE HCL 100 MG TABLET (FP) PO SCH (21:25)
[2018-06-03] MEDS: ATORVASTATIN CA 20 MG TABLET (FP) PO SCH (21:25)
[2018-06-04] MEDS: LISINOPRIL 5 MG TABLET (FP) PO SCH (09:39)
[2018-06-04] MEDS: CLOPIDOGREL BISULFATE 75 MG TABLET (FP) PO SCH (09:39)
[2018-06-04] MEDS: RITONAVIR PO SCH ×2 (09:39→21:30)
[2018-06-04] MEDS: OXYBUTYNIN CHLORIDE 5 MG TABLET PO SCH (09:39)
[2018-06-04] MEDS: ASPIRIN 81 MG CHEWABLE TABLETS PO SCH (09:39)
[2018-06-04] MEDS: METOPROLOL TARTRATE 50 MG TABLET (FP) PO SCH ×2 (09:39→21:32)
[2018-06-04] MEDS: PRENATAL VITAMINS W/ FOLIC ACID TABLET (FP) PO SCH (09:39)
[2018-06-04] MEDS: [UNRECOGNIZED DRUG - OTHER] PO SCH ×2 (09:40→21:30)
[2018-06-04] MEDS: DARUNAVIR ETHANOLATE PO SCH ×2 (09:40→21:31)
[2018-06-04] MEDS: NICOTINE 14 MG/24 HOURS TOPICAL PATCH TD SCH (09:40)
[2018-06-04] MEDS: DOLUTEGRAVIR SODIUM 50 MG PO SCH ×2 (09:42→21:31)
[2018-06-04] MEDS: FENOFIBRIC ACID 45 MG CAP PO SCH (10:44)
--- NOTE | 2018-06-04 10:57 | PN ---
S Progress Note Note: BLOOD PRESSURE MEDICATION REVIEW: PT IS CONCERNED AND REPORTS LOW ENERGY-TIRED AND DIZZY YESTERDAY. REQUESTING BP MEDICATION REVIEW AND ADJUSTMENT. PT REQUESTS TO STOP MEDS BECAUSE OF LOW BP. PT REPORTS HX OF CAD WITH ONE STENT INSERTED SINCE 3 YRS AGO. REPORTS HE HAS PMD RAFAEL SAVAGE NP AT [address] [place] [address]. PT STATES HE WILL SEE HIS PROVIDER SOON HE GETS OUT OF REHAB. ON REVIEW OF PREVIOUS ADMISSION VITAL SIGNS IN JANUARY 2018 AND MARCH 2018, PT HAD A CONSISTENT PATTERN OF LOW BP RECORD. ASKED PT IF HE BROUGHT TO ATTENTION THE COPY OF VS ON PREVIOUS VISITS DISCHARGE PAPERS. PT SAID YES AND WAS TOLD TO CONTINUE MEDS. PT WAS ENCOURAGED TO CALL AND MAKE APPOINTMENT WITH HIS PCP WHILE HERE IN LIEU OF DISCHARGE DAY.PT VERBALIZED UNDERSTANDING. Vital Signs (72 hours) 06/01/18 06/02/18 06/02/18 21:39 00:30 03:30 Temperature Pulse Rate 66 Respiratory 18 18 Rate Blood Pressure 106/68 06/02/18 06/02/18 06/02/18 07:03 10:00 21:15 Temperature 97.6 F Pulse Rate 73 78 63 Respiratory 16 Rate Blood Pressure 96/70 99/67 110/64 06/03/18 06/03/18 06/03/18 00:30 03:30 07:55 Temperature 97.8 F Pulse Rate 65 Respiratory 18 18 16 Rate Blood Pressure 91/59 L 06/03/18 06/03/18 06/03/18 12:42 12:43 20:35 Temperature Pulse Rate 60 67 76 Respiratory 18 Rate Blood Pressure 80/47 L 74/53 L 90/58 L 06/04/18 06/04/18 06/04/18 00:30 03:30 07:06 Temperature 97.6 F Pulse Rate 70 Respiratory 16 16 16 Rate Blood Pressure 91/58 L 06/04/18 10:00 Temperature Pulse Rate 71 Respiratory Rate Blood Pressure 109/66 PT WITH CONSISTENT HYPOTENSION ABOVE. PLAN:NURSE TO MONITOR BP AND REPORT HYPOTENSIVE READINGS FOLLOW UP WITH RAFAEL SAVAGE NP FOR MEDICAL MANAGEMENT AND REVIEW OF MEDICATIONS. DISCUSSED WITH PATIENT DUE TO CAD/STENT THE NEED NOT TO DISCONTINUE MED BUT STAFF WILL MONITOR BEFORE ADMINISTRATION. PT AGREED TO POC.
[2018-06-04] MEDS: ATORVASTATIN CA 20 MG TABLET (FP) PO SCH (21:29)
[2018-06-04] MEDS: THIAMINE HCL 100 MG TABLET (FP) PO SCH (21:30)
[2018-06-05] MEDS: PRENATAL VITAMINS W/ FOLIC ACID TABLET (FP) PO SCH (10:01)
[2018-06-05] MEDS: NICOTINE 14 MG/24 HOURS TOPICAL PATCH TD SCH (10:01)
[2018-06-05] MEDS: ASPIRIN 81 MG CHEWABLE TABLETS PO SCH (10:01)
[2018-06-05] MEDS: RITONAVIR PO SCH ×2 (10:02→23:09)
[2018-06-05] MEDS: [UNRECOGNIZED DRUG - OTHER] PO SCH ×2 (10:03→23:09)
[2018-06-05] MEDS: DOLUTEGRAVIR SODIUM 50 MG PO SCH ×2 (10:04→23:08)
[2018-06-05] MEDS: DARUNAVIR ETHANOLATE PO SCH ×2 (10:06→23:08)
[2018-06-05] MEDS: OXYBUTYNIN CHLORIDE 5 MG TABLET PO SCH (10:07)
[2018-06-05] MEDS: CLOPIDOGREL BISULFATE 75 MG TABLET (FP) PO SCH (10:11)
[2018-06-05] MEDS: LISINOPRIL 5 MG TABLET (FP) PO SCH (11:33)
[2018-06-05] MEDS: METOPROLOL TARTRATE 50 MG TABLET (FP) PO SCH ×2 (11:33→23:09)
[2018-06-05] MEDS: FENOFIBRIC ACID 45 MG CAP PO SCH (11:44)
[2018-06-05] MEDS: ATORVASTATIN CA 20 MG TABLET (FP) PO SCH (23:08)
[2018-06-05] MEDS: THIAMINE HCL 100 MG TABLET (FP) PO SCH (23:09)
[2018-06-06] MEDS: NICOTINE 14 MG/24 HOURS TOPICAL PATCH TD SCH (09:39)
[2018-06-06] MEDS: PRENATAL VITAMINS W/ FOLIC ACID TABLET (FP) PO SCH (09:39)
[2018-06-06] MEDS: CLOPIDOGREL BISULFATE 75 MG TABLET (FP) PO SCH (09:39)
[2018-06-06] MEDS: OXYBUTYNIN CHLORIDE 5 MG TABLET PO SCH (09:39)
[2018-06-06] MEDS: ASPIRIN 81 MG CHEWABLE TABLETS PO SCH (09:39)
[2018-06-06] MEDS: LISINOPRIL 5 MG TABLET (FP) PO SCH (09:40)
[2018-06-06] MEDS: METOPROLOL TARTRATE 50 MG TABLET (FP) PO SCH ×2 (09:40→21:29)
[2018-06-06] MEDS: RITONAVIR PO SCH ×2 (09:41→21:30)
[2018-06-06] MEDS: [UNRECOGNIZED DRUG - OTHER] PO SCH ×2 (09:41→21:27)
[2018-06-06] MEDS: DOLUTEGRAVIR SODIUM 50 MG PO SCH ×2 (09:42→21:28)
[2018-06-06] MEDS: DARUNAVIR ETHANOLATE PO SCH ×2 (09:42→21:27)
[2018-06-06] MEDS: FENOFIBRIC ACID 45 MG CAP PO SCH (09:43)
[2018-06-06] MEDS: ATORVASTATIN CA 20 MG TABLET (FP) PO SCH (21:29)
[2018-06-06] MEDS: THIAMINE HCL 100 MG TABLET (FP) PO SCH (21:30)
[2018-06-07] MEDS: RITONAVIR PO SCH ×2 (10:30→11:00)
[2018-06-07] MEDS: DOLUTEGRAVIR SODIUM 50 MG PO SCH ×2 (11:00→21:31)
[2018-06-07] MEDS: OXYBUTYNIN CHLORIDE 5 MG TABLET PO SCH (11:00)
[2018-06-07] MEDS: FENOFIBRIC ACID 45 MG CAP PO SCH (11:00)
[2018-06-07] MEDS: ASPIRIN 81 MG CHEWABLE TABLETS PO SCH (11:00)
[2018-06-07] MEDS: NICOTINE 14 MG/24 HOURS TOPICAL PATCH TD SCH (11:00)
[2018-06-07] MEDS: PRENATAL VITAMINS W/ FOLIC ACID TABLET (FP) PO SCH (11:00)
[2018-06-07] MEDS: METOPROLOL TARTRATE 50 MG TABLET (FP) PO SCH ×2 (11:00→21:33)
[2018-06-07] MEDS: LISINOPRIL 5 MG TABLET (FP) PO SCH (11:00)
[2018-06-07] MEDS: [UNRECOGNIZED DRUG - OTHER] PO SCH ×2 (11:00→21:34)
[2018-06-07] MEDS: CLOPIDOGREL BISULFATE 75 MG TABLET (FP) PO SCH (11:00)
[2018-06-07] MEDS: DARUNAVIR ETHANOLATE PO SCH ×2 (11:00→21:31)
[2018-06-07] MEDS: ATORVASTATIN CA 20 MG TABLET (FP) PO SCH (21:30)
[2018-06-07] MEDS: THIAMINE HCL 100 MG TABLET (FP) PO SCH (21:31)
[2018-06-08 06:49] VITALS: BP 99/74; PULSE 60; TEMP 98.2
--- NOTE | 2018-06-08 09:52 | PN ---
[facility] Progress Note Note: PT COMPLETED REHAB AND DISCHARGING TODAY. PT MET WITH HIS COUNSELOR AND HAS BEEN REFERRED TO [facility] ON [address], [place]. PT ALSO REFERRED BACK TO HIS PCP, RAAFEL SAVAGE NP ON [address], [place] FOR MEDICAL MANAGEMENT. PT HAS HIS MEDS WITH HIM. PT IS ALERT O X3. DENIES S/ H/I. Home Medications Medication Instructions Recorded Aspirin [ASA -] 81 mg PO DAILY 08/23/16 Darunavir Ethanolate [Prezista -] 600 mg PO BID 08/23/16 Maraviroc [Selzentry -] 150 mg PO BID 08/23/16 Ritonavir [Norvir -] 100 mg PO BID 08/23/16 Dolutegravir Sodium [Tivicay] 50 mg PO BID 02/16/18 Fenofibrate Nanocrystallized 54 mg PO DAILY #30 tablet 04/06/18 [Fenofibrate] Lisinopril [Zestril] 2.5 mg PO DAILY #14 tablet 04/06/18 Pantoprazole Sodium [Protonix -] 20 mg PO DAILY 05/21/18 Atorvastatin Ca [Lipitor] 20 mg PO HS #14 tablet 05/25/18 Clopidogrel Bisulfate [Clopidogrel] 75 mg PO DAILY #14 tablet 05/25/18 Metoprolol Tartrate [Lopressor -] 25 mg PO BID #30 tablet 05/25/18 Naloxone HCl [Narcan] 4 mg NS ASDIR PRN #1 spray 05/25/18 Nitroglycerin Sublingual 0.4 mg SL PRN PRN #7 tab 05/25/18 [Nitrostat -] Oxybutynin Chloride [Ditropan -] 5 mg PO DAILY #14 tablet 05/25/18 Vital Signs (72 hours) 06/05/18 06/05/18 06/06/18 10:00 21:00 00:30 Temperature Pulse Rate 76 61 Respiratory 18 16 Rate Blood Pressure 102/70 102/70 06/06/18 06/06/18 06/06/18 03:30 07:14 09:00 Temperature 98.3 F Pulse Rate 65 77 Respiratory 18 16 18 Rate Blood Pressure 85/57 L 108/70 06/07/18 06/07/18 06/07/18 03:30 10:00 21:00 Temperature 97.8 F Pulse Rate 62 62 Respiratory 16 16 18 Rate Blood Pressure 94/52 L 113/71 06/08/18 06/08/18 06/08/18 00:30 03:30 06:49 Temperature 98.2 F Pulse Rate 60 Respiratory 18 18 16 Rate Blood Pressure 99/74 NAD MEDICALLY STABLE PLAN:FOLLOW UP WITH CD AFTERCARE RECOMMENDED ON 06/08/18 AT 11:00 A.M FOLLOW UP WITH PCP ABOVE WITHIN 1 WEEK AFTER DISCHARGE.
[2018-06-08] MEDS: LISINOPRIL 5 MG TABLET (FP) PO SCH (10:26)
[2018-06-08] MEDS: OXYBUTYNIN CHLORIDE 5 MG TABLET PO SCH (10:26)
[2018-06-08] MEDS: PRENATAL VITAMINS W/ FOLIC ACID TABLET (FP) PO SCH (10:26)
[2018-06-08] MEDS: ASPIRIN 81 MG CHEWABLE TABLETS PO SCH (10:26)
[2018-06-08] MEDS: CLOPIDOGREL BISULFATE 75 MG TABLET (FP) PO SCH (10:27)
[2018-06-08] MEDS: FENOFIBRIC ACID 45 MG CAP PO SCH (10:28)
[2018-06-08] MEDS: DOLUTEGRAVIR SODIUM 50 MG PO SCH (10:28)
[2018-06-08] MEDS: NICOTINE 14 MG/24 HOURS TOPICAL PATCH TD SCH (10:28)
[2018-06-08] MEDS: RITONAVIR PO SCH (10:29)
[2018-06-08] MEDS: [UNRECOGNIZED DRUG - OTHER] PO SCH (10:29)
[2018-06-08] MEDS: DARUNAVIR ETHANOLATE PO SCH (10:30)
[2018-06-08] MEDS: METOPROLOL TARTRATE 50 MG TABLET (FP) PO SCH (10:32)
== END 2018-06-08 10:00 | disposition home or self-care (01) | DRG 895 ==
LOC: YASAS 13:42 → Y5N 13:43
PROVIDERS: ADMIT Neuromusculoskeletal Medicine & OMM; ATTEND Neuromusculoskeletal Medicine & OMM
PROC: HZ42ZZZ Group Counseling for Substance Abuse Treatment, Cognitive-Behavioral (ICD-10-PCS; principal; 2018-05-26)
DX: F11.20 Opioid dependence, uncomplicated (principal); F17.210 Nicotine dependence, cigarettes, uncomplicated; I10 Essential (primary) hypertension; Z21 Asymptomatic human immunodeficiency virus [HIV] infection status; I95.9 Hypotension, unspecified; E78.5 Hyperlipidemia, unspecified; B18.2 Chronic viral hepatitis C; K21.9 Gastro-esophageal reflux disease without esophagitis; I25.10 Atherosclerotic heart disease of native coronary artery without angina pectoris; Z95.5 Presence of coronary angioplasty implant and graft

== ENCOUNTER 2022-04-26 11:52 | Inpatient (IN) | payer OTHER ==
[2022-04-26 12:28] VITALS: BMI 28.6
[2022-04-26] MEDS ORDERED: hydrOXYzine PAMOATE 25 MG CAPSULE (FP) PO PRN (12:52)
[2022-04-26] MEDS ORDERED: LOPERAMIDE HCL 2 MG CAPSULE PO PRN (12:52)
[2022-04-26] MEDS ORDERED: ACETAMINOPHEN 325 MG TABLET (FP) PO PRN ×2 (12:52)
[2022-04-26] MEDS ORDERED: IBUPROFEN 400 MG TABLET (FP) PO PRN (12:52)
[2022-04-26] MEDS ORDERED: DICYCLOMINE HCL 10 MG CAPSULE PO PRN (12:52)
[2022-04-26] MEDS ORDERED: POLYETHYLENE GLYCOL (HEALTHYLAX) 3350 17 GM PACKET PO PRN (12:52)
[2022-04-26] MEDS ORDERED: BISMUTH SUBSALICYLATE 524 MG/30 ML PO PRN (12:52)
[2022-04-26] MEDS ORDERED: MAG HYDROX/AL HYDROX/SIMETH 30 ML UNIT-DOSE CUP PO PRN (12:52)
[2022-04-26] MEDS ORDERED: NALOXONE HCL (KLOXXADO) 8 MG SPRAY NS PRN (12:52)
[2022-04-26] MEDS ORDERED: BENZOCAINE/MENTHOL (CHLORASEPTIC ) LOZENGE MM PRN (12:52)
[2022-04-26] MEDS ORDERED: methaDONE HCL 10 MG TABLET (FOR DETOX USE ONLY) PO ONE ×2 (12:52→15:20)
[2022-04-26] MEDS ORDERED: cloNIDine HCL 0.1 MG TABLET PO PRN (12:52)
[2022-04-26] MEDS ORDERED: NICOTINE 10 MG CARTRIDGE (INHALER) IH PRN (12:52)
[2022-04-26] MEDS ORDERED: ONDANSETRON *ODT* 4 MG TABLET SL PRN (12:52)
[2022-04-26] MEDS ORDERED: METHOCARBAMOL 500 MG TABLET PO PRN (12:52)
[2022-04-26] MEDS ORDERED: IBUPROFEN 600 MG TABLET (FP) PO PRN (12:52)
[2022-04-26] MEDS ORDERED: MAGNESIUM HYDROX 2400MG/30ML ORAL SUSPENSION 30 ML CUP PO PRN (12:52)
[2022-04-26] MEDS ORDERED: ASPIRIN 81 MG CHEWABLE TABLETS PO SCH ×2 (13:00→14:12)
[2022-04-26] MEDS ORDERED: PRENATAL VITAMINS W/ FOLIC ACID TABLET (FP) PO SCH (13:00)
[2022-04-26] MEDS ORDERED: NICOTINE 14 MG/24 HOURS TOPICAL PATCH TD SCH (13:00)
[2022-04-26] MEDS ORDERED: PANTOPRAZOLE 20 MG TABLET PO SCH (13:00)
[2022-04-26] MEDS ORDERED: LISINOPRIL 5 MG TABLET PO SCH ×2 (13:00→14:07)
[2022-04-26] MEDS ORDERED: methaDONE HCL 10 MG TABLET PO ONE (15:10)
[2022-04-26] MEDS: RITONAVIR 100 MG TABLET PO SCH (17:59)
[2022-04-26] MEDS: THIAMINE HCL 100 MG TABLET (FP) PO SCH (21:25)
[2022-04-26] MEDS: ATORVASTATIN CA 20 MG TABLET (FP) PO SCH (21:25)
[2022-04-26] MEDS: DOLUTEGRAVIR SODIUM 50 MG TABLET (NON-FORMULARY) PO SCH (21:26)
[2022-04-26] MEDS: MELATONIN 5 MG TABLETS PO SCH (21:29)
[2022-04-26] MEDS: DARUNAVIR ETHANOLATE 600 MG TAB PO SCH (21:30)
[2022-04-26] MEDS: METOPROLOL TARTRATE 50 MG TABLET (FP) PO SCH (21:31)
[2022-04-26] MEDS ORDERED: RITONAVIR 100 MG TABLET PO SCH (22:00)
[2022-04-27] MEDS: RITONAVIR 100 MG TABLET PO SCH ×2 (07:11→18:13)
[2022-04-27] MEDS: CLOPIDOGREL BISULFATE 75 MG TABLET (FP) PO SCH (10:45)
[2022-04-27] MEDS: PRENATAL VITAMINS W/ FOLIC ACID TABLET (FP) PO SCH (10:45)
[2022-04-27] MEDS: ASPIRIN 81 MG CHEWABLE TABLETS PO SCH (10:45)
[2022-04-27] MEDS: METOPROLOL TARTRATE 50 MG TABLET (FP) PO SCH ×2 (10:45→21:53)
[2022-04-27] MEDS: LISINOPRIL 5 MG TABLET PO SCH (10:46)
[2022-04-27] MEDS: PANTOPRAZOLE 20 MG TABLET PO SCH (10:47)
[2022-04-27] MEDS: DOLUTEGRAVIR SODIUM 50 MG TABLET (NON-FORMULARY) PO SCH ×2 (10:47→21:53)
[2022-04-27] MEDS: DARUNAVIR ETHANOLATE 600 MG TAB PO SCH ×2 (10:47→21:53)
[2022-04-27] MEDS: NICOTINE 14 MG/24 HOURS TOPICAL PATCH TD SCH (10:48)
[2022-04-27] MEDS: FENOFIBRIC ACID 45 MG CAP PO SCH (10:50)
[2022-04-27 11:02] LABS: HEMATOCRIT 39.2 % (35.4-49); HEMOGLOBIN 12.6 GM/dL (11.7-16.9); MCH 30.2 pg (25.7-33.7); MCHC 32.1 g/dl (32.0-35.9); MEAN CELL VOLUME 93.9 fl (80-96); PLATELET COUNT 159 10^3/uL (134-434); RBC 4.17 M/mm3 (4.00-5.60); RDW 14.5 % (11.9-15.9)
[2022-04-27 11:13] LABS: CALCIUM 8.6 mg/dL (8.5-10.1)
[2022-04-27 11:14] LABS: ALBUMIN 3.2 g/dl (3.4-5.0); BLOOD UREA NITROGEN 20.6 mg/dL (7-18)
[2022-04-27 11:16] LABS: CREATININE 1.5 mg/dL (0.55-1.3)
[2022-04-27 11:18] LABS: BILIRUBIN,TOTAL 0.4 mg/dL (0.2-1); TOT PROT 6.3 g/dl (6.4-8.2)
[2022-04-27] MEDS: LIDOCAINE 5% TOPICAL PATCH TP SCH (20:55)
[2022-04-27] MEDS: LIDOCAINE PATCH REMOVAL MC SCH (21:51)
[2022-04-27] MEDS: ATORVASTATIN CA 20 MG TABLET (FP) PO SCH (21:53)
[2022-04-27] MEDS: MELATONIN 5 MG TABLETS PO SCH (21:53)
[2022-04-27] MEDS: THIAMINE HCL 100 MG TABLET (FP) PO SCH (21:53)
[2022-04-28] MEDS: RITONAVIR 100 MG TABLET PO SCH ×2 (07:02→17:53)
[2022-04-28] MEDS ORDERED: methaDONE HCL 10 MG TABLET (FOR DETOX USE ONLY) PO ONE (10:00)
[2022-04-28] MEDS: PANTOPRAZOLE 20 MG TABLET PO SCH (10:11)
[2022-04-28] MEDS: CLOPIDOGREL BISULFATE 75 MG TABLET (FP) PO SCH (10:12)
[2022-04-28] MEDS: METOPROLOL TARTRATE 50 MG TABLET (FP) PO SCH ×2 (10:12→22:16)
[2022-04-28] MEDS: ASPIRIN 81 MG CHEWABLE TABLETS PO SCH (10:13)
[2022-04-28] MEDS: LISINOPRIL 5 MG TABLET PO SCH (10:13)
[2022-04-28] MEDS: DARUNAVIR ETHANOLATE 600 MG TAB PO SCH ×2 (10:14→22:16)
[2022-04-28] MEDS: DOLUTEGRAVIR SODIUM 50 MG TABLET (NON-FORMULARY) PO SCH ×2 (10:14→22:15)
[2022-04-28] MEDS: FENOFIBRIC ACID 45 MG CAP PO SCH (10:14)
[2022-04-28] MEDS: PRENATAL VITAMINS W/ FOLIC ACID TABLET (FP) PO SCH (10:15)
[2022-04-28] MEDS: NICOTINE 14 MG/24 HOURS TOPICAL PATCH TD SCH (10:15)
[2022-04-28] MEDS: LIDOCAINE 5% TOPICAL PATCH TP SCH (10:15)
[2022-04-28 12:12] LABS: BLOOD UREA NITROGEN 17.7 mg/dL (7-18)
[2022-04-28 12:15] LABS: CREATININE 1.7 mg/dL (0.55-1.3)
[2022-04-28] MEDS: LIDOCAINE PATCH REMOVAL MC SCH (22:14)
[2022-04-28] MEDS: MELATONIN 5 MG TABLETS PO SCH (22:15)
[2022-04-28] MEDS: ATORVASTATIN CA 20 MG TABLET (FP) PO SCH (22:16)
[2022-04-28] MEDS: THIAMINE HCL 100 MG TABLET (FP) PO SCH (22:16)
[2022-04-29] MEDS: RITONAVIR 100 MG TABLET PO SCH ×2 (07:05→17:29)
[2022-04-29] MEDS: PRENATAL VITAMINS W/ FOLIC ACID TABLET (FP) PO SCH (10:40)
[2022-04-29] MEDS: ASPIRIN 81 MG CHEWABLE TABLETS PO SCH (10:41)
[2022-04-29] MEDS: CLOPIDOGREL BISULFATE 75 MG TABLET (FP) PO SCH (10:42)
[2022-04-29] MEDS: PANTOPRAZOLE 20 MG TABLET PO SCH (10:42)
[2022-04-29] MEDS: DARUNAVIR ETHANOLATE 600 MG TAB PO SCH ×2 (10:45→21:14)
[2022-04-29] MEDS: LIDOCAINE 5% TOPICAL PATCH TP SCH (10:50)
[2022-04-29] MEDS: LISINOPRIL 5 MG TABLET PO SCH (10:50)
[2022-04-29] MEDS: DOLUTEGRAVIR SODIUM 50 MG TABLET (NON-FORMULARY) PO SCH ×2 (10:50→21:13)
[2022-04-29] MEDS: FENOFIBRIC ACID 45 MG CAP PO SCH (10:50)
[2022-04-29] MEDS: METOPROLOL TARTRATE 50 MG TABLET (FP) PO SCH ×2 (11:02→21:14)
[2022-04-29] MEDS: NICOTINE 14 MG/24 HOURS TOPICAL PATCH TD SCH (11:03)
[2022-04-29] MEDS: MELATONIN 5 MG TABLETS PO SCH (21:12)
[2022-04-29] MEDS: THIAMINE HCL 100 MG TABLET (FP) PO SCH (21:12)
[2022-04-29] MEDS: ATORVASTATIN CA 20 MG TABLET (FP) PO SCH (21:12)
[2022-04-29] MEDS: LIDOCAINE PATCH REMOVAL MC SCH (21:13)
[2022-04-30] MEDS: RITONAVIR 100 MG TABLET PO SCH ×2 (07:09→17:21)
[2022-04-30] MEDS ORDERED: methaDONE HCL 10 MG TABLET (FOR DETOX USE ONLY) PO ONE (10:00)
[2022-04-30] MEDS: PRENATAL VITAMINS W/ FOLIC ACID TABLET (FP) PO SCH (10:42)
[2022-04-30] MEDS: CLOPIDOGREL BISULFATE 75 MG TABLET (FP) PO SCH (10:42)
[2022-04-30] MEDS: PANTOPRAZOLE 20 MG TABLET PO SCH (10:42)
[2022-04-30] MEDS: ASPIRIN 81 MG CHEWABLE TABLETS PO SCH (10:43)
[2022-04-30] MEDS: LIDOCAINE 5% TOPICAL PATCH TP SCH (10:45)
[2022-04-30] MEDS: DARUNAVIR ETHANOLATE 600 MG TAB PO SCH ×2 (10:50→17:21)
[2022-04-30] MEDS: LISINOPRIL 5 MG TABLET PO SCH (10:50)
[2022-04-30] MEDS: METOPROLOL TARTRATE 50 MG TABLET (FP) PO SCH ×2 (10:50→22:19)
[2022-04-30] MEDS: FENOFIBRIC ACID 45 MG CAP PO SCH (10:50)
[2022-04-30] MEDS: DOLUTEGRAVIR SODIUM 50 MG TABLET (NON-FORMULARY) PO SCH ×2 (10:50→22:21)
[2022-04-30] MEDS: NICOTINE 14 MG/24 HOURS TOPICAL PATCH TD SCH (11:10)
[2022-04-30] MEDS: LIDOCAINE PATCH REMOVAL MC SCH (22:18)
[2022-04-30] MEDS: THIAMINE HCL 100 MG TABLET (FP) PO SCH (22:18)
[2022-04-30] MEDS: MELATONIN 5 MG TABLETS PO SCH (22:19)
[2022-04-30] MEDS: ATORVASTATIN CA 20 MG TABLET (FP) PO SCH (22:19)
[2022-05-01] MEDS: DARUNAVIR ETHANOLATE 600 MG TAB PO SCH (07:45)
[2022-05-01] MEDS: RITONAVIR 100 MG TABLET PO SCH (07:45)
[2022-05-01 09:26] VITALS: BP 117/62; PULSE 52; RESP 17; TEMP 96.9
[2022-05-01] MEDS: ASPIRIN 81 MG CHEWABLE TABLETS PO SCH (10:23)
[2022-05-01] MEDS: PRENATAL VITAMINS W/ FOLIC ACID TABLET (FP) PO SCH (10:23)
[2022-05-01] MEDS: LIDOCAINE 5% TOPICAL PATCH TP SCH (10:23)
[2022-05-01] MEDS: PANTOPRAZOLE 20 MG TABLET PO SCH (10:23)
[2022-05-01] MEDS: CLOPIDOGREL BISULFATE 75 MG TABLET (FP) PO SCH (10:24)
[2022-05-01] MEDS: NICOTINE 14 MG/24 HOURS TOPICAL PATCH TD SCH (10:28)
[2022-05-01] MEDS: LISINOPRIL 5 MG TABLET PO SCH (10:28)
[2022-05-01] MEDS: DOLUTEGRAVIR SODIUM 50 MG TABLET (NON-FORMULARY) PO SCH (10:28)
[2022-05-01] MEDS: FENOFIBRIC ACID 45 MG CAP PO SCH (10:28)
[2022-05-01] MEDS: METOPROLOL TARTRATE 50 MG TABLET (FP) PO SCH (10:28)
== END 2022-05-01 10:34 | disposition home or self-care (01) | DRG 897 ==
LOC: YASAS 11:52 → Y3N 13:51
PROVIDERS: ADMIT Allergy & Immunology; ATTEND Family Medicine
PROC: HZ2ZZZZ Detoxification Services for Substance Abuse Treatment (ICD-10-PCS; principal; 2022-04-26)
DX: F11.23 Opioid dependence with withdrawal (principal); B20 Human immunodeficiency virus [HIV] disease; F10.230 Alcohol dependence with withdrawal, uncomplicated; F17.210 Nicotine dependence, cigarettes, uncomplicated; Z79.899 Other long term (current) drug therapy; E78.5 Hyperlipidemia, unspecified; I25.10 Atherosclerotic heart disease of native coronary artery without angina pectoris; I10 Essential (primary) hypertension; K21.9 Gastro-esophageal reflux disease without esophagitis; I25.2 Old myocardial infarction; Z95.5 Presence of coronary angioplasty implant and graft; Z86.19 Personal history of other infectious and parasitic diseases
CPT/HCPCS: 36415; 71046-TC-FY; 72100-TC-FY; 80053; 82565; 84520; 85027; 86780; 87811; C9803-CS; Q0162; U0003; U0005

== ENCOUNTER 2022-05-20 11:31 | Inpatient (IN) | payer OTHER ==
[2022-05-20 12:51] VITALS: BMI 27.4
[2022-05-20] MEDS ORDERED: BENZOCAINE/MENTHOL (CHLORASEPTIC ) LOZENGE MM PRN (13:30)
[2022-05-20] MEDS ORDERED: DICYCLOMINE HCL 10 MG CAPSULE PO PRN (13:30)
[2022-05-20] MEDS ORDERED: MAG HYDROX/AL HYDROX/SIMETH 30 ML UNIT-DOSE CUP PO PRN (13:30)
[2022-05-20] MEDS ORDERED: hydrOXYzine PAMOATE 25 MG CAPSULE (FP) PO PRN (13:30)
[2022-05-20] MEDS ORDERED: IBUPROFEN 600 MG TABLET (FP) PO PRN (13:30)
[2022-05-20] MEDS ORDERED: POLYETHYLENE GLYCOL (HEALTHYLAX) 3350 17 GM PACKET PO PRN (13:30)
[2022-05-20] MEDS ORDERED: NALOXONE HCL (KLOXXADO) 8 MG SPRAY NS PRN (13:30)
[2022-05-20] MEDS ORDERED: ACETAMINOPHEN 325 MG TABLET (FP) PO PRN ×2 (13:30)
[2022-05-20] MEDS ORDERED: IBUPROFEN 400 MG TABLET (FP) PO PRN (13:30)
[2022-05-20] MEDS ORDERED: BISMUTH SUBSALICYLATE 524 MG/30 ML PO PRN (13:30)
[2022-05-20] MEDS ORDERED: METHOCARBAMOL 500 MG TABLET PO PRN (13:30)
[2022-05-20] MEDS ORDERED: LOPERAMIDE HCL 2 MG CAPSULE PO PRN (13:30)
[2022-05-20] MEDS ORDERED: methaDONE HCL 10 MG TABLET (FOR DETOX USE ONLY) PO ONE ×3 (13:30→15:15)
[2022-05-20] MEDS ORDERED: NICOTINE POLACRILEX 4 MG GUM BUC PRN (13:30)
[2022-05-20] MEDS ORDERED: ONDANSETRON *ODT* 4 MG TABLET SL PRN (13:30)
[2022-05-20] MEDS ORDERED: MAGNESIUM HYDROX 2400MG/30ML ORAL SUSPENSION 30 ML CUP PO PRN (13:30)
[2022-05-20] MEDS ORDERED: NICOTINE 10 MG CARTRIDGE (INHALER) IH PRN (13:30)
[2022-05-20] MEDS ORDERED: NITROGLYCERIN SUBLINGUAL 1/150 0.4 MG TAB SL PRN (13:41)
[2022-05-20] MEDS ORDERED: NICOTINE 21 MG/24 HOURS TOPICAL PATCH TD SCH (15:00)
[2022-05-20 21:03] VITALS: BP 115/72; PULSE 80; RESP 17; TEMP 96.5
[2022-05-20] MEDS ORDERED: MELATONIN 5 MG TABLETS PO SCH (22:00)
[2022-05-20] MEDS ORDERED: THIAMINE HCL 100 MG TABLET (FP) PO SCH (22:00)
[2022-05-20] MEDS ORDERED: ATORVASTATIN CA 20 MG TABLET (FP) PO SCH (22:00)
[2022-05-21] MEDS ORDERED: DARUNAVIR ETHANOLATE 800 MG TAB PO SCH (08:00)
[2022-05-21] MEDS ORDERED: ELVITEG/COB/EMTRI/TENOF (GENVOYA) TABLET (NF) PO SCH (08:00)
[2022-05-21] MEDS ORDERED: PRENATAL VITAMINS W/ FOLIC ACID TABLET (FP) PO SCH (10:00)
[2022-05-21] MEDS ORDERED: ASPIRIN 81 MG CHEWABLE TABLETS PO SCH (10:00)
[2022-05-21] MEDS ORDERED: CLOPIDOGREL BISULFATE 75 MG TABLET (FP) PO SCH (10:00)
[2022-05-21] MEDS ORDERED: DARUNAVIR ETHANOLATE 600 MG TAB PO SCH (10:00)
[2022-05-22] MEDS ORDERED: methaDONE HCL 10 MG TABLET (FOR DETOX USE ONLY) PO ONE (10:00)
== END 2022-05-21 07:01 | disposition short-term general hospital (02) | DRG 897 ==
LOC: YASAS 11:31 → Y3N 14:11
PROVIDERS: ADMIT Allergy & Immunology; ATTEND Surgery
PROC: HZ2ZZZZ Detoxification Services for Substance Abuse Treatment (ICD-10-PCS; principal; 2022-05-20)
DX: F11.23 Opioid dependence with withdrawal (principal); F10.230 Alcohol dependence with withdrawal, uncomplicated; F17.210 Nicotine dependence, cigarettes, uncomplicated; Z21 Asymptomatic human immunodeficiency virus [HIV] infection status; E78.5 Hyperlipidemia, unspecified; I10 Essential (primary) hypertension; I25.2 Old myocardial infarction; Z95.5 Presence of coronary angioplasty implant and graft; Z79.02 Long term (current) use of antithrombotics/antiplatelets; Z79.82 Long term (current) use of aspirin; Z86.19 Personal history of other infectious and parasitic diseases; Z99.89 Dependence on other enabling machines and devices
CPT/HCPCS: 87811; 93005; 93010; C9803-CS; U0003; U0005

== ENCOUNTER 2022-05-20 20:41 | Observation (INO) | payer OTHER ==
[2022-05-20 22:18] LABS: BASO % 0.6 % (0-2.0); EOS % 7.9 % (0-4.5); HEMATOCRIT 36.6 % (35.4-49); HEMOGLOBIN 12.1 GM/dL (11.7-16.9); MCH 30.9 pg (25.7-33.7); MCHC 33.1 g/dl (32.0-35.9); MEAN CELL VOLUME 93.3 fl (80-96); MEAN PLT VOLUME 9.4 fl (7.5-11.1); MONO % 11.3 % (3.8-10.2); NEUT % 47.2 % (42.8-82.8); PLATELET COUNT 119 10^3/uL (134-434); RBC 3.92 M/mm3 (4.00-5.60); RDW 14.8 % (11.9-15.9); WHITE BLOOD COUNT 3.7 K/mm3 (4.0-10.0)
[2022-05-20 22:38] LABS: CALCIUM 7.8 mg/dL (8.5-10.1)
[2022-05-20 22:39] LABS: ALBUMIN 2.8 g/dl (3.4-5.0); BLOOD UREA NITROGEN 21.8 mg/dL (7-18)
[2022-05-20 22:42] LABS: CREATININE 1.3 mg/dL (0.55-1.3); PHOSPHOROUS 3.5 mg/dL (2.5-4.9)
[2022-05-20 22:43] LABS: BILIRUBIN,TOTAL 0.2 mg/dL (0.2-1); TOT PROT 5.7 g/dl (6.4-8.2)
[2022-05-20 23:22] LABS: MAGNESIUM 1.9 mg/dL (1.8-2.4)
[2022-05-21 03:52] LABS: URINE APPEARANCE CLEAR; URINE BILIRUBIN NEGATIVE (NEGATIVE); URINE COLOR YELLOW; URINE GLUCOSE (UA) NEGATIVE (NEGATIVE); URINE KETONE NEGATIVE (NEGATIVE); URINE LEUK ESTERASE NEGATIVE (NEGATIVE); URINE NITRITE NEGATIVE (NEGATIVE); URINE PROTEIN NEGATIVE (NEGATIVE); URINE UROBILINOGEN 0.2 mg/dL (0.2-1.0)
[2022-05-21 04:00] LABS: PHENCYCLIDINE,URINE NEGATIVE (NEGATIVE); URINE BENZODIAZEPINES NEGATIVE (NEGATIVE)
[2022-05-21 04:03] LABS: COCAINE, UR NEGATIVE (NEGATIVE); METHADONE, UR POSITIVE (NEGATIVE); OPIATES, URI POSITIVE (NEGATIVE); URINE AMPHETAMINES NEGATIVE (NEGATIVE); URINE BARBITURATES NEGATIVE (NEGATIVE)
[2022-05-21] MEDS: HEPARIN NA (PORCINE) 5,000 UNITS/ML 1ML VIAL SQ SCH ×3 (05:46→21:35)
[2022-05-21] MEDS ORDERED: METOPROLOL TARTRATE 25 MG TABLET (FP) ONE (08:49)
[2022-05-21] MEDS ORDERED: POLYETHYLENE GLYCOL (HEALTHYLAX) 3350 17 GM PACKET ONE (08:49)
[2022-05-21] MEDS ORDERED: methaDONE HCL 10 MG TABLET ONE (08:50)
[2022-05-21] MEDS ORDERED: ASPIRIN 81 MG CHEWABLE TABLETS ONE (08:51)
[2022-05-21] MEDS ORDERED: THIAMINE HCL 100 MG TABLET (FP) ONE (08:51)
[2022-05-21] MEDS ORDERED: NICOTINE 21 MG/24 HOURS TOPICAL PATCH ONE (08:51)
[2022-05-21] MEDS: POLYETHYLENE GLYCOL (HEALTHYLAX) 3350 17 GM PACKET PO SCH (09:39)
[2022-05-21] MEDS: NICOTINE 21 MG/24 HOURS TOPICAL PATCH TD SCH (09:39)
[2022-05-21] MEDS: DARUNAVIR ETHANOLATE 800 MG TAB PO SCH ×2 (09:39)
[2022-05-21] MEDS: METOPROLOL TARTRATE 25 MG TABLET (FP) PO SCH ×2 (09:39→21:36)
[2022-05-21] MEDS: ASPIRIN 81 MG CHEWABLE TABLETS PO SCH (09:40)
[2022-05-21] MEDS: THIAMINE HCL 100 MG TABLET (FP) PO SCH (10:02)
[2022-05-21] MEDS: ELVITEG/COB/EMTRI/TENOFO (STRIBILD) TABLET -NF PO SCH ×2 (10:02)
[2022-05-21] MEDS ORDERED: amLODIPine BESYLATE 5 MG TABLET (FP) ONE (11:59)
[2022-05-21] MEDS: amLODIPine BESYLATE 5 MG TABLET (FP) PO SCH (12:04)
[2022-05-21 12:07] VITALS: BMI 25.9
[2022-05-21] MEDS ORDERED: HEPARIN NA (PORCINE) 5,000 UNITS/ML 1ML VIAL ONE (13:51)
[2022-05-21] MEDS ORDERED: ATORVASTATIN CA 20 MG TABLET (FP) PO SCH (22:00)
[2022-05-21] MEDS: CLOPIDOGREL BISULFATE 75 MG TABLET (FP) PO SCH (22:16)
[2022-05-21] MEDS ORDERED: CLOPIDOGREL BISULFATE 75 MG TABLET (FP) PO SCH (22:49)
[2022-05-21 23:28] VITALS: RESP 18
[2022-05-22 06:05] VITALS: TEMP 97.6
[2022-05-22] MEDS: HEPARIN NA (PORCINE) 5,000 UNITS/ML 1ML VIAL SQ SCH ×2 (06:15→15:33)
[2022-05-22 08:06] LABS: BASO % 0.6 % (0-2.0); EOS % 6.3 % (0-4.5); HEMATOCRIT 37.8 % (35.4-49); HEMOGLOBIN 13.2 GM/dL (11.7-16.9); LYMPH % 28.3 % (8-40); MCHC 34.9 g/dl (32.0-35.9); MEAN CELL VOLUME 91.7 fl (80-96); MEAN PLT VOLUME 9.5 fl (7.5-11.1); MONO % 10.3 % (3.8-10.2); NEUT % 54.5 % (42.8-82.8); PLATELET COUNT 137 10^3/uL (134-434); RBC 4.12 M/mm3 (4.00-5.60); RDW 15.1 % (11.9-15.9); WHITE BLOOD COUNT 4.8 K/mm3 (4.0-10.0)
[2022-05-22 08:23] LABS: ALBUMIN 3.4 g/dl (3.4-5.0); BLOOD UREA NITROGEN 18.4 mg/dL (7-18); CALCIUM 8.9 mg/dL (8.5-10.1)
[2022-05-22 08:25] LABS: CREATININE 1.3 mg/dL (0.55-1.3)
[2022-05-22 08:26] LABS: BILIRUBIN,TOTAL 0.6 mg/dL (0.2-1); TOT PROT 6.6 g/dl (6.4-8.2)
[2022-05-22] MEDS ORDERED: methaDONE HCL 10 MG TABLET PO ONE (10:00)
[2022-05-22] MEDS: POLYETHYLENE GLYCOL (HEALTHYLAX) 3350 17 GM PACKET PO SCH (10:44)
[2022-05-22] MEDS: NICOTINE 21 MG/24 HOURS TOPICAL PATCH TD SCH (10:44)
[2022-05-22] MEDS: amLODIPine BESYLATE 5 MG TABLET (FP) PO SCH ×2 (10:44→11:17)
[2022-05-22] MEDS: METOPROLOL TARTRATE 25 MG TABLET (FP) PO SCH ×2 (10:44→11:17)
[2022-05-22] MEDS: ASPIRIN 81 MG CHEWABLE TABLETS PO SCH (10:45)
[2022-05-22] MEDS: THIAMINE HCL 100 MG TABLET (FP) PO SCH (10:45)
[2022-05-22] MEDS: CLOPIDOGREL BISULFATE 75 MG TABLET (FP) PO SCH (10:45)
[2022-05-22] MEDS: ELVITEG/COB/EMTRI/TENOFO (STRIBILD) TABLET -NF PO SCH (10:46)
[2022-05-22] MEDS: DARUNAVIR ETHANOLATE 800 MG TAB PO SCH (10:46)
[2022-05-22 14:49] VITALS: BP 109/79; PULSE 60
[2022-05-24] MEDS ORDERED: methaDONE HCL 10 MG TABLET PO ONE (10:00)
== END 2022-05-22 16:50 | disposition other institution (70) ==
LOC: JER 20:41 → JERBED 23:45 → J4W 05-21 20:57
PROVIDERS: ADMIT Internal Medicine
PROC: 3E013GC Introduction of Other Therapeutic Substance into Subcutaneous Tissue, Percutaneous Approach (ICD-10-PCS; principal; 2022-05-20)
DX: F10.230 Alcohol dependence with withdrawal, uncomplicated (principal); F11.20 Opioid dependence, uncomplicated; Z21 Asymptomatic human immunodeficiency virus [HIV] infection status; R07.89 Other chest pain; R00.0 Tachycardia, unspecified; F17.210 Nicotine dependence, cigarettes, uncomplicated; I25.10 Atherosclerotic heart disease of native coronary artery without angina pectoris; I25.2 Old myocardial infarction; I10 Essential (primary) hypertension; E78.5 Hyperlipidemia, unspecified; Z95.5 Presence of coronary angioplasty implant and graft; Z79.02 Long term (current) use of antithrombotics/antiplatelets; K21.9 Gastro-esophageal reflux disease without esophagitis; Z86.19 Personal history of other infectious and parasitic diseases; R26.2 Difficulty in walking, not elsewhere classified; Z99.89 Dependence on other enabling machines and devices; Z56.0 Unemployment, unspecified
CPT/HCPCS: 0241U-QW; 36415; 71045-TC-FY; 80053; 80307; 81003; 82962; 83735; 84100; 84484; 85025; 85379; 87086; 93005; 93010; 93306-TC; 96372; 99285-25; G0378; J1644

== ENCOUNTER 2022-05-22 16:52 | Inpatient (IN) | payer OTHER ==
[2022-05-22 17:37] VITALS: BMI 29.3
[2022-05-22] MEDS ORDERED: BISMUTH SUBSALICYLATE 524 MG/30 ML PO PRN (19:31)
[2022-05-22] MEDS ORDERED: LOPERAMIDE HCL 2 MG CAPSULE PO PRN (19:31)
[2022-05-22] MEDS ORDERED: MAGNESIUM HYDROX 2400MG/30ML ORAL SUSPENSION 30 ML CUP PO PRN (19:31)
[2022-05-22] MEDS ORDERED: cloNIDine HCL 0.1 MG TABLET PO PRN (19:31)
[2022-05-22] MEDS ORDERED: BENZOCAINE/MENTHOL (CHLORASEPTIC ) LOZENGE MM PRN (19:31)
[2022-05-22] MEDS ORDERED: POLYETHYLENE GLYCOL (HEALTHYLAX) 3350 17 GM PACKET PO PRN (19:31)
[2022-05-22] MEDS ORDERED: NALOXONE HCL (KLOXXADO) 8 MG SPRAY NS PRN (19:31)
[2022-05-22] MEDS ORDERED: IBUPROFEN 400 MG TABLET (FP) PO PRN (19:31)
[2022-05-22] MEDS ORDERED: ACETAMINOPHEN 325 MG TABLET (FP) PO PRN ×2 (19:31)
[2022-05-22] MEDS ORDERED: MAG HYDROX/AL HYDROX/SIMETH 30 ML UNIT-DOSE CUP PO PRN (19:31)
[2022-05-22] MEDS ORDERED: METHOCARBAMOL 500 MG TABLET PO PRN (19:31)
[2022-05-22] MEDS ORDERED: NICOTINE 10 MG CARTRIDGE (INHALER) IH PRN (19:31)
[2022-05-22] MEDS ORDERED: IBUPROFEN 600 MG TABLET (FP) PO PRN (19:31)
[2022-05-22] MEDS ORDERED: DICYCLOMINE HCL 10 MG CAPSULE PO PRN (19:31)
[2022-05-22] MEDS ORDERED: diazePAM 5 MG TABLET PO PRN (19:37)
[2022-05-22] MEDS: ATORVASTATIN CA 20 MG TABLET (FP) PO SCH (22:12)
[2022-05-22] MEDS: METOPROLOL TARTRATE 50 MG TABLET (FP) PO SCH (22:12)
[2022-05-22] MEDS: ASPIRIN 81 MG CHEWABLE TABLETS PO SCH (22:12)
[2022-05-22] MEDS: THIAMINE HCL 100 MG TABLET (FP) PO SCH (22:12)
[2022-05-22] MEDS: MELATONIN 5 MG TABLETS PO SCH (22:12)
[2022-05-23] MEDS ORDERED: methaDONE HCL 10 MG TABLET (FOR DETOX USE ONLY) PO ONE (10:00)
[2022-05-23] MEDS: DARUNAVIR ETHANOLATE 800 MG TAB PO SCH (10:26)
[2022-05-23] MEDS: PRENATAL VITAMINS W/ FOLIC ACID TABLET (FP) PO SCH (10:26)
[2022-05-23] MEDS: METOPROLOL TARTRATE 50 MG TABLET (FP) PO SCH ×2 (10:26→22:05)
[2022-05-23] MEDS: ELVITEG/COB/EMTRI/TENOF (GENVOYA) TABLET (NF) PO SCH (10:27)
[2022-05-23] MEDS: ASPIRIN 81 MG CHEWABLE TABLETS PO SCH (10:27)
[2022-05-23] MEDS: CLOPIDOGREL BISULFATE 75 MG TABLET (FP) PO SCH (10:27)
[2022-05-23 13:43] LABS: HEMATOCRIT 37.2 % (35.4-49); HEMOGLOBIN 12.9 GM/dL (11.7-16.9); MCHC 34.8 g/dl (32.0-35.9); MEAN CELL VOLUME 92.1 fl (80-96); MEAN PLT VOLUME 9.6 fl (7.5-11.1); PLATELET COUNT 138 10^3/uL (134-434); RBC 4.04 M/mm3 (4.00-5.60); RDW 14.9 % (11.9-15.9); WHITE BLOOD COUNT 3.4 K/mm3 (4.0-10.0)
[2022-05-23 14:41] LABS: ALBUMIN 3.1 g/dl (3.4-5.0); BLOOD UREA NITROGEN 22.5 mg/dL (7-18); CALCIUM 8.5 mg/dL (8.5-10.1)
[2022-05-23 14:44] LABS: CREATININE 1.4 mg/dL (0.55-1.3)
[2022-05-23 14:45] LABS: BILIRUBIN,TOTAL 0.4 mg/dL (0.2-1); TOT PROT 6.1 g/dl (6.4-8.2)
[2022-05-23] MEDS: MELATONIN 5 MG TABLETS PO SCH (22:05)
[2022-05-23] MEDS: THIAMINE HCL 100 MG TABLET (FP) PO SCH (22:05)
[2022-05-23] MEDS: ATORVASTATIN CA 20 MG TABLET (FP) PO SCH (22:05)
[2022-05-24] MEDS ORDERED: methaDONE HCL 10 MG TABLET (FOR DETOX USE ONLY) PO ONE (10:00)
[2022-05-24] MEDS: CLOPIDOGREL BISULFATE 75 MG TABLET (FP) PO SCH (10:20)
[2022-05-24] MEDS: DARUNAVIR ETHANOLATE 800 MG TAB PO SCH (10:20)
[2022-05-24] MEDS: PRENATAL VITAMINS W/ FOLIC ACID TABLET (FP) PO SCH (10:21)
[2022-05-24] MEDS: ASPIRIN 81 MG CHEWABLE TABLETS PO SCH (10:21)
[2022-05-24] MEDS: METOPROLOL TARTRATE 50 MG TABLET (FP) PO SCH ×2 (10:21→22:05)
[2022-05-24] MEDS: ELVITEG/COB/EMTRI/TENOF (GENVOYA) TABLET (NF) PO SCH (10:21)
[2022-05-24] MEDS: ATORVASTATIN CA 20 MG TABLET (FP) PO SCH (22:04)
[2022-05-24] MEDS: THIAMINE HCL 100 MG TABLET (FP) PO SCH (22:04)
[2022-05-24] MEDS: MELATONIN 5 MG TABLETS PO SCH (22:04)
[2022-05-25] MEDS ORDERED: methaDONE HCL 10 MG TABLET (FOR DETOX USE ONLY) PO ONE (06:00)
[2022-05-25 07:00] VITALS: RESP 16
[2022-05-25 10:05] VITALS: BP 107/73; PULSE 73; TEMP 98
[2022-05-25] MEDS: DARUNAVIR ETHANOLATE 800 MG TAB PO SCH (10:45)
[2022-05-25] MEDS: CLOPIDOGREL BISULFATE 75 MG TABLET (FP) PO SCH (10:45)
[2022-05-25] MEDS: ELVITEG/COB/EMTRI/TENOF (GENVOYA) TABLET (NF) PO SCH (10:45)
[2022-05-25] MEDS: PRENATAL VITAMINS W/ FOLIC ACID TABLET (FP) PO SCH (10:45)
[2022-05-25] MEDS: METOPROLOL TARTRATE 50 MG TABLET (FP) PO SCH (10:46)
[2022-05-25] MEDS: ASPIRIN 81 MG CHEWABLE TABLETS PO SCH (10:46)
== END 2022-05-25 11:07 | disposition home or self-care (01) | DRG 897 ==
LOC: YASAS 16:52 → Y3N 20:38
PROVIDERS: ADMIT Allergy & Immunology; ATTEND Surgery
PROC: HZ2ZZZZ Detoxification Services for Substance Abuse Treatment (ICD-10-PCS; principal; 2022-05-22)
DX: F10.230 Alcohol dependence with withdrawal, uncomplicated (principal); F17.210 Nicotine dependence, cigarettes, uncomplicated; Z21 Asymptomatic human immunodeficiency virus [HIV] infection status; E78.1 Pure hyperglyceridemia; I25.10 Atherosclerotic heart disease of native coronary artery without angina pectoris; I10 Essential (primary) hypertension; Z95.5 Presence of coronary angioplasty implant and graft; Z79.02 Long term (current) use of antithrombotics/antiplatelets; Z79.82 Long term (current) use of aspirin
CPT/HCPCS: 36415; 80053; 85027; 86780; 87811

== ENCOUNTER 2022-06-19 11:34 | Inpatient (IN) | payer OTHER ==
[2022-06-19 12:17] VITALS: BMI 26.7
[2022-06-19] MEDS ORDERED: DICYCLOMINE HCL 10 MG CAPSULE PO PRN (13:39)
[2022-06-19] MEDS ORDERED: NALOXONE HCL 0.4 MG/ML VIAL IM PRN (13:39)
[2022-06-19] MEDS ORDERED: MAGNESIUM HYDROX 2400MG/30ML ORAL SUSPENSION 30 ML CUP PO PRN (13:39)
[2022-06-19] MEDS ORDERED: BENZONATATE 200 MG CAPSULE PO PRN (13:39)
[2022-06-19] MEDS ORDERED: POLYETHYLENE GLYCOL (HEALTHYLAX) 3350 17 GM PACKET PO PRN (13:39)
[2022-06-19] MEDS ORDERED: IBUPROFEN 600 MG TABLET (FP) PO PRN (13:39)
[2022-06-19] MEDS ORDERED: MAG HYDROX/AL HYDROX/SIMETH 30 ML UNIT-DOSE CUP PO PRN (13:39)
[2022-06-19] MEDS ORDERED: ACETAMINOPHEN 325 MG TABLET (FP) PO PRN (13:39)
[2022-06-19] MEDS ORDERED: LOPERAMIDE HCL 2 MG CAPSULE PO PRN (13:39)
[2022-06-19] MEDS ORDERED: IBUPROFEN 400 MG TABLET (FP) PO PRN (13:39)
[2022-06-19] MEDS ORDERED: METHOCARBAMOL 500 MG TABLET PO PRN (13:39)
[2022-06-19] MEDS ORDERED: NALOXONE HCL (KLOXXADO) 8 MG SPRAY NS PRN (13:39)
[2022-06-19] MEDS ORDERED: hydrOXYzine PAMOATE 25 MG CAPSULE (FP) PO PRN (13:39)
[2022-06-19] MEDS ORDERED: BENZOCAINE/MENTHOL (CHLORASEPTIC ) LOZENGE MM PRN (13:39)
[2022-06-19] MEDS ORDERED: guaiFENesin 600 MG TABLET.ER (FP) PO PRN (13:39)
[2022-06-19] MEDS ORDERED: ONDANSETRON *ODT* 4 MG TABLET SL PRN (13:39)
[2022-06-19] MEDS ORDERED: NICOTINE 10 MG CARTRIDGE (INHALER) IH PRN (13:39)
[2022-06-19] MEDS ORDERED: BISMUTH SUBSALICYLATE 524 MG/30 ML PO PRN (13:39)
[2022-06-19] MEDS ORDERED: NITROGLYCERIN SUBLINGUAL 1/150 0.4 MG TAB SL PRN (13:42)
[2022-06-19] MEDS: NICOTINE 14 MG/24 HOURS TOPICAL PATCH TD SCH (14:40)
[2022-06-19] MEDS: PRENATAL VITAMINS W/ FOLIC ACID TABLET (FP) PO SCH (14:40)
[2022-06-19] MEDS: ASPIRIN 81 MG CHEWABLE TABLETS PO SCH (14:40)
[2022-06-19] MEDS: METOPROLOL TARTRATE 50 MG TABLET (FP) PO SCH (22:55)
[2022-06-19] MEDS: ATORVASTATIN CA 20 MG TABLET (FP) PO SCH (22:55)
[2022-06-19] MEDS: MELATONIN 5 MG TABLETS PO SCH (22:55)
[2022-06-19] MEDS: THIAMINE HCL 100 MG TABLET (FP) PO SCH (22:55)
[2022-06-20] MEDS: ELVITEG/COB/EMTRI/TENOF (GENVOYA) TABLET PO SCH (07:11)
[2022-06-20] MEDS: DARUNAVIR ETHANOLATE 800 MG TAB PO SCH (07:11)
[2022-06-20] MEDS ORDERED: cloNIDine HCL 0.1 MG TABLET PO PRN (09:50)
[2022-06-20] MEDS ORDERED: chlordiazePOXIDE HCL 25 MG CAPSULE PO PRN (09:50)
[2022-06-20] MEDS ORDERED: methaDONE HCL 10 MG TABLET (FOR DETOX USE ONLY) PO ONE (09:50)
[2022-06-20] MEDS: PRENATAL VITAMINS W/ FOLIC ACID TABLET (FP) PO SCH (10:10)
[2022-06-20] MEDS: CLOPIDOGREL BISULFATE 75 MG TABLET (FP) PO SCH (10:11)
[2022-06-20] MEDS: METOPROLOL TARTRATE 50 MG TABLET (FP) PO SCH ×2 (10:11→22:21)
[2022-06-20] MEDS: ASPIRIN 81 MG CHEWABLE TABLETS PO SCH (10:11)
[2022-06-20] MEDS: chlordiazePOXIDE HCL 25 MG CAPSULE PO SCH ×3 (10:13→22:20)
[2022-06-20] MEDS: NICOTINE 14 MG/24 HOURS TOPICAL PATCH TD SCH (10:15)
[2022-06-20 11:08] LABS: HEMATOCRIT 38.6 % (35.4-49); HEMOGLOBIN 13.2 GM/dL (11.7-16.9); MCH 31.5 pg (25.7-33.7); MCHC 34.2 g/dl (32.0-35.9); MEAN CELL VOLUME 92.1 fl (80-96); PLATELET COUNT 129 10^3/uL (134-434); RDW 15.1 % (11.9-15.9); WHITE BLOOD COUNT 5.6 K/mm3 (4.0-10.0)
[2022-06-20 11:20] LABS: ALBUMIN 3.4 g/dl (3.4-5.0); BLOOD UREA NITROGEN 25.6 mg/dL (7-18)
[2022-06-20 11:23] LABS: CREATININE 1.5 mg/dL (0.55-1.3)
[2022-06-20 11:25] LABS: BILIRUBIN,TOTAL 1.6 mg/dL (0.2-1); TOT PROT 6.5 g/dl (6.4-8.2)
[2022-06-20] MEDS: LACTULOSE 20 GM/30 ML UDC (FOR ORAL USE ONLY) PO SCH ×2 (17:44→22:21)
[2022-06-20] MEDS: THIAMINE HCL 100 MG TABLET (FP) PO SCH (22:20)
[2022-06-20] MEDS: MELATONIN 5 MG TABLETS PO SCH (22:20)
[2022-06-20] MEDS: ATORVASTATIN CA 20 MG TABLET (FP) PO SCH (22:20)
[2022-06-21] MEDS: chlordiazePOXIDE HCL 25 MG CAPSULE PO SCH ×4 (05:50→22:17)
[2022-06-21] MEDS: DARUNAVIR ETHANOLATE 800 MG TAB PO SCH (07:18)
[2022-06-21] MEDS: ELVITEG/COB/EMTRI/TENOF (GENVOYA) TABLET PO SCH (07:19)
[2022-06-21] MEDS: ASPIRIN 81 MG CHEWABLE TABLETS PO SCH (10:50)
[2022-06-21] MEDS: PRENATAL VITAMINS W/ FOLIC ACID TABLET (FP) PO SCH (10:50)
[2022-06-21] MEDS: CLOPIDOGREL BISULFATE 75 MG TABLET (FP) PO SCH (10:50)
[2022-06-21] MEDS: LACTULOSE 20 GM/30 ML UDC (FOR ORAL USE ONLY) PO SCH ×4 (10:50→22:17)
[2022-06-21] MEDS: NICOTINE 14 MG/24 HOURS TOPICAL PATCH TD SCH (10:50)
[2022-06-21] MEDS: METOPROLOL TARTRATE 50 MG TABLET (FP) PO SCH ×2 (10:50→22:17)
[2022-06-21 10:59] LABS: BLOOD UREA NITROGEN 19.6 mg/dL (7-18)
[2022-06-21 11:02] LABS: CREATININE 1.4 mg/dL (0.55-1.3)
[2022-06-21] MEDS: THIAMINE HCL 100 MG TABLET (FP) PO SCH (22:17)
[2022-06-21] MEDS: ATORVASTATIN CA 20 MG TABLET (FP) PO SCH (22:17)
[2022-06-21] MEDS: MELATONIN 5 MG TABLETS PO SCH (22:17)
[2022-06-22] MEDS: chlordiazePOXIDE HCL 25 MG CAPSULE PO SCH ×4 (05:42→22:36)
[2022-06-22] MEDS: DARUNAVIR ETHANOLATE 800 MG TAB PO SCH (07:29)
[2022-06-22] MEDS: ELVITEG/COB/EMTRI/TENOF (GENVOYA) TABLET PO SCH (07:29)
[2022-06-22] MEDS ORDERED: methaDONE HCL 10 MG TABLET (FOR DETOX USE ONLY) PO ONE (10:00)
[2022-06-22] MEDS: CLOPIDOGREL BISULFATE 75 MG TABLET (FP) PO SCH (10:38)
[2022-06-22] MEDS: PRENATAL VITAMINS W/ FOLIC ACID TABLET (FP) PO SCH (10:38)
[2022-06-22] MEDS: ASPIRIN 81 MG CHEWABLE TABLETS PO SCH (10:38)
[2022-06-22] MEDS: NICOTINE 14 MG/24 HOURS TOPICAL PATCH TD SCH (10:38)
[2022-06-22] MEDS: METOPROLOL TARTRATE 50 MG TABLET (FP) PO SCH ×2 (10:39→22:36)
[2022-06-22] MEDS: LACTULOSE 20 GM/30 ML UDC (FOR ORAL USE ONLY) PO SCH ×5 (10:43→22:35)
[2022-06-22] MEDS: ATORVASTATIN CA 20 MG TABLET (FP) PO SCH (22:36)
[2022-06-22] MEDS: THIAMINE HCL 100 MG TABLET (FP) PO SCH (22:37)
[2022-06-22] MEDS: MELATONIN 5 MG TABLETS PO SCH (22:37)
[2022-06-23] MEDS ORDERED: chlordiazePOXIDE HCL 10 MG CAPSULE PO PRN
[2022-06-23] MEDS: chlordiazePOXIDE HCL 10 MG CAPSULE PO SCH ×4 (05:56→22:03)
[2022-06-23] MEDS: DARUNAVIR ETHANOLATE 800 MG TAB PO SCH (07:04)
[2022-06-23] MEDS: ELVITEG/COB/EMTRI/TENOF (GENVOYA) TABLET PO SCH (07:05)
[2022-06-23] MEDS: CLOPIDOGREL BISULFATE 75 MG TABLET (FP) PO SCH (10:19)
[2022-06-23] MEDS: METOPROLOL TARTRATE 50 MG TABLET (FP) PO SCH ×2 (10:19→22:03)
[2022-06-23] MEDS: NICOTINE 14 MG/24 HOURS TOPICAL PATCH TD SCH (10:19)
[2022-06-23] MEDS: PRENATAL VITAMINS W/ FOLIC ACID TABLET (FP) PO SCH (10:19)
[2022-06-23] MEDS: ASPIRIN 81 MG CHEWABLE TABLETS PO SCH (10:19)
[2022-06-23] MEDS: LACTULOSE 20 GM/30 ML UDC (FOR ORAL USE ONLY) PO SCH ×4 (10:19→22:01)
[2022-06-23] MEDS: ATORVASTATIN CA 20 MG TABLET (FP) PO SCH (22:03)
[2022-06-23] MEDS: MELATONIN 5 MG TABLETS PO SCH (22:03)
[2022-06-23] MEDS: THIAMINE HCL 100 MG TABLET (FP) PO SCH (22:03)
[2022-06-24] MEDS ORDERED: chlordiazePOXIDE HCL 10 MG CAPSULE PO SCH (05:00)
[2022-06-24] MEDS: ELVITEG/COB/EMTRI/TENOF (GENVOYA) TABLET PO SCH (07:14)
[2022-06-24] MEDS: DARUNAVIR ETHANOLATE 800 MG TAB PO SCH (07:14)
[2022-06-24] MEDS ORDERED: methaDONE HCL 10 MG TABLET (FOR DETOX USE ONLY) PO ONE (10:00)
[2022-06-24] MEDS: PRENATAL VITAMINS W/ FOLIC ACID TABLET (FP) PO SCH (10:37)
[2022-06-24] MEDS: CLOPIDOGREL BISULFATE 75 MG TABLET (FP) PO SCH (10:37)
[2022-06-24] MEDS: METOPROLOL TARTRATE 50 MG TABLET (FP) PO SCH (10:37)
[2022-06-24] MEDS: ASPIRIN 81 MG CHEWABLE TABLETS PO SCH (10:37)
[2022-06-24] MEDS: LACTULOSE 20 GM/30 ML UDC (FOR ORAL USE ONLY) PO SCH ×2 (10:38→14:31)
[2022-06-24] MEDS: NICOTINE 14 MG/24 HOURS TOPICAL PATCH TD SCH (10:39)
[2022-06-24 11:59] LABS: BLOOD UREA NITROGEN 14.6 mg/dL (7-18); CALCIUM 8.5 mg/dL (8.5-10.1)
[2022-06-24 12:02] LABS: CREATININE 1.3 mg/dL (0.55-1.3)
[2022-06-24 13:13] VITALS: BP 108/66; PULSE 67; RESP 17; TEMP 97.7
[2022-06-25] MEDS ORDERED: chlordiazePOXIDE HCL 10 MG CAPSULE PO ONE (05:00)
== END 2022-06-24 15:37 | disposition home or self-care (01) | DRG 897 ==
LOC: YASAS 11:34 → Y3N 13:57
PROVIDERS: ADMIT Allergy & Immunology; ATTEND Surgery
PROC: HZ2ZZZZ Detoxification Services for Substance Abuse Treatment (ICD-10-PCS; principal; 2022-06-19)
DX: F11.23 Opioid dependence with withdrawal (principal); E72.20 Disorder of urea cycle metabolism, unspecified; N17.9 Acute kidney failure, unspecified; F10.230 Alcohol dependence with withdrawal, uncomplicated; F17.210 Nicotine dependence, cigarettes, uncomplicated; Z21 Asymptomatic human immunodeficiency virus [HIV] infection status; D69.6 Thrombocytopenia, unspecified; G47.00 Insomnia, unspecified; E78.5 Hyperlipidemia, unspecified; I25.118 Atherosclerotic heart disease of native coronary artery with other forms of angina pectoris; I10 Essential (primary) hypertension; I25.2 Old myocardial infarction; Z95.5 Presence of coronary angioplasty implant and graft
CPT/HCPCS: 36415; 80048; 80053; 82140; 82565; 84520; 85027; 86780; 87811; C9803-CS; U0003; U0005

== ENCOUNTER 2022-06-25 08:13 | Inpatient (IN) | payer OTHER ==
[2022-06-25 08:36] VITALS: BMI 27.4
[2022-06-25] MEDS ORDERED: hydrOXYzine PAMOATE 25 MG CAPSULE (FP) PO PRN (08:58)
[2022-06-25] MEDS ORDERED: ACETAMINOPHEN 325 MG TABLET (FP) PO PRN (08:58)
[2022-06-25] MEDS ORDERED: MAGNESIUM HYDROX 2400MG/30ML ORAL SUSPENSION 30 ML CUP PO PRN (08:58)
[2022-06-25] MEDS ORDERED: MAG HYDROX/AL HYDROX/SIMETH 30 ML UNIT-DOSE CUP PO PRN (08:58)
[2022-06-25] MEDS ORDERED: LOPERAMIDE HCL 2 MG CAPSULE PO PRN (08:58)
[2022-06-25] MEDS ORDERED: IBUPROFEN 400 MG TABLET (FP) PO PRN (08:58)
[2022-06-25] MEDS ORDERED: NALOXONE HCL 0.4 MG/ML VIAL IM PRN (08:58)
[2022-06-25] MEDS ORDERED: BENZONATATE 200 MG CAPSULE PO PRN (08:58)
[2022-06-25] MEDS ORDERED: POLYETHYLENE GLYCOL (HEALTHYLAX) 3350 17 GM PACKET PO PRN (08:58)
[2022-06-25] MEDS ORDERED: BENZOCAINE/MENTHOL (CHLORASEPTIC ) LOZENGE MM PRN (08:58)
[2022-06-25] MEDS ORDERED: guaiFENesin 600 MG TABLET.ER (FP) PO PRN (08:58)
[2022-06-25] MEDS ORDERED: IBUPROFEN 600 MG TABLET (FP) PO PRN (08:58)
[2022-06-25] MEDS ORDERED: NALOXONE HCL (KLOXXADO) 8 MG SPRAY NS PRN (08:58)
[2022-06-25] MEDS ORDERED: NICOTINE 14 MG/24 HOURS TOPICAL PATCH TD ONE (09:53)
[2022-06-25] MEDS ORDERED: PRENATAL VITAMINS W/ FOLIC ACID TABLET (FP) PO ONE (09:53)
[2022-06-25] MEDS: NICOTINE 14 MG/24 HOURS TOPICAL PATCH TD SCH (10:00)
[2022-06-25] MEDS: PRENATAL VITAMINS W/ FOLIC ACID TABLET (FP) PO SCH (10:00)
[2022-06-25 13:43] LABS: HEMATOCRIT 40.2 % (35.4-49); HEMOGLOBIN 13.6 GM/dL (11.7-16.9); MCH 31.3 pg (25.7-33.7); MCHC 33.7 g/dl (32.0-35.9); MEAN CELL VOLUME 92.8 fl (80-96); MEAN PLT VOLUME 9.7 fl (7.5-11.1); PLATELET COUNT 146 10^3/uL (134-434); RBC 4.34 M/mm3 (4.00-5.60); RDW 15.1 % (11.9-15.9); WHITE BLOOD COUNT 7.2 K/mm3 (4.0-10.0)
[2022-06-25 14:24] LABS: ALBUMIN 3.2 g/dl (3.4-5.0); CALCIUM 8.7 mg/dL (8.5-10.1)
[2022-06-25 14:25] LABS: BLOOD UREA NITROGEN 11.4 mg/dL (7-18); CREATININE 1.4 mg/dL (0.55-1.3)
[2022-06-25 14:27] LABS: BILIRUBIN,TOTAL 0.2 mg/dL (0.2-1); TOT PROT 6.5 g/dl (6.4-8.2)
[2022-06-25 14:30] LABS: SYPHILIS W/ RPR CONF NON-REACTIVE (NONREACTIVE)
[2022-06-25] MEDS ORDERED: NITROGLYCERIN SUBLINGUAL 1/150 0.4 MG TAB SL PRN (15:25)
[2022-06-25] MEDS: CLOPIDOGREL BISULFATE 75 MG TABLET (FP) PO SCH (15:53)
[2022-06-25] MEDS: ASPIRIN 81 MG CHEWABLE TABLETS PO SCH (15:53)
[2022-06-25] MEDS: ELVITEG/COB/EMTRI/TENOF (GENVOYA) TABLET PO SCH (18:34)
[2022-06-25] MEDS: DARUNAVIR ETHANOLATE 800 MG TAB PO SCH (18:34)
[2022-06-25] MEDS: MELATONIN 5 MG TABLETS PO SCH (21:07)
[2022-06-25] MEDS: THIAMINE HCL 100 MG TABLET (FP) PO SCH (21:07)
[2022-06-25] MEDS: RIFAXIMIN 550 MG TABLET PO SCH (21:07)
[2022-06-25] MEDS: LACTULOSE 20 GM/30 ML UDC (FOR ORAL USE ONLY) PO SCH (21:08)
[2022-06-25] MEDS: ATORVASTATIN CA 20 MG TABLET (FP) PO SCH (21:08)
[2022-06-25] MEDS: METOPROLOL TARTRATE 25 MG TABLET (FP) PO SCH (21:09)
[2022-06-26] MEDS: LACTULOSE 20 GM/30 ML UDC (FOR ORAL USE ONLY) PO SCH ×3 (06:32→21:16)
[2022-06-26] MEDS: DARUNAVIR ETHANOLATE 800 MG TAB PO SCH (10:42)
[2022-06-26] MEDS: ASPIRIN 81 MG CHEWABLE TABLETS PO SCH (10:42)
[2022-06-26] MEDS: RIFAXIMIN 550 MG TABLET PO SCH ×2 (10:42→21:16)
[2022-06-26] MEDS: PRENATAL VITAMINS W/ FOLIC ACID TABLET (FP) PO SCH (10:42)
[2022-06-26] MEDS: METOPROLOL TARTRATE 25 MG TABLET (FP) PO SCH ×2 (10:43→21:17)
[2022-06-26] MEDS: CLOPIDOGREL BISULFATE 75 MG TABLET (FP) PO SCH (10:43)
[2022-06-26] MEDS: ELVITEG/COB/EMTRI/TENOF (GENVOYA) TABLET PO SCH (10:44)
[2022-06-26] MEDS: NICOTINE 14 MG/24 HOURS TOPICAL PATCH TD SCH (10:46)
[2022-06-26 11:43] LABS: PH,URINE 7.5 (5.0-8.0); URINE APPEARANCE CLEAR; URINE BILIRUBIN NEGATIVE (NEGATIVE); URINE COLOR YELLOW; URINE GLUCOSE (UA) NEGATIVE (NEGATIVE); URINE KETONE NEGATIVE (NEGATIVE); URINE LEUK ESTERASE NEGATIVE (NEGATIVE); URINE NITRITE NEGATIVE (NEGATIVE); URINE PROTEIN NEGATIVE (NEGATIVE); URINE UROBILINOGEN 0.2 mg/dL (0.2-1.0)
[2022-06-26] MEDS: MELATONIN 5 MG TABLETS PO SCH (21:16)
[2022-06-26] MEDS: THIAMINE HCL 100 MG TABLET (FP) PO SCH (21:16)
[2022-06-26] MEDS: ATORVASTATIN CA 20 MG TABLET (FP) PO SCH (21:16)
[2022-06-27] MEDS: LACTULOSE 20 GM/30 ML UDC (FOR ORAL USE ONLY) PO SCH ×3 (06:04→21:03)
[2022-06-27] MEDS: ASPIRIN 81 MG CHEWABLE TABLETS PO SCH (10:42)
[2022-06-27] MEDS: CLOPIDOGREL BISULFATE 75 MG TABLET (FP) PO SCH (10:42)
[2022-06-27] MEDS: NICOTINE 14 MG/24 HOURS TOPICAL PATCH TD SCH (10:42)
[2022-06-27] MEDS: RIFAXIMIN 550 MG TABLET PO SCH ×2 (10:42→21:02)
[2022-06-27] MEDS: PRENATAL VITAMINS W/ FOLIC ACID TABLET (FP) PO SCH (10:42)
[2022-06-27] MEDS: METOPROLOL TARTRATE 25 MG TABLET (FP) PO SCH ×2 (10:42→21:02)
[2022-06-27] MEDS: DARUNAVIR ETHANOLATE 800 MG TAB PO SCH (10:42)
[2022-06-27] MEDS: ELVITEG/COB/EMTRI/TENOF (GENVOYA) TABLET PO SCH (10:42)
[2022-06-27] MEDS: ATORVASTATIN CA 20 MG TABLET (FP) PO SCH (21:02)
[2022-06-27] MEDS: THIAMINE HCL 100 MG TABLET (FP) PO SCH (21:02)
[2022-06-27] MEDS: MELATONIN 5 MG TABLETS PO SCH (21:02)
[2022-06-28] MEDS: LACTULOSE 20 GM/30 ML UDC (FOR ORAL USE ONLY) PO SCH ×3 (06:04→21:14)
[2022-06-28] MEDS: PRENATAL VITAMINS W/ FOLIC ACID TABLET (FP) PO SCH (10:31)
[2022-06-28] MEDS: DARUNAVIR ETHANOLATE 800 MG TAB PO SCH (10:32)
[2022-06-28] MEDS: ASPIRIN 81 MG CHEWABLE TABLETS PO SCH (10:32)
[2022-06-28] MEDS: RIFAXIMIN 550 MG TABLET PO SCH ×2 (10:32→21:15)
[2022-06-28] MEDS: CLOPIDOGREL BISULFATE 75 MG TABLET (FP) PO SCH (10:33)
[2022-06-28] MEDS: ELVITEG/COB/EMTRI/TENOF (GENVOYA) TABLET PO SCH (10:34)
[2022-06-28] MEDS: METOPROLOL TARTRATE 25 MG TABLET (FP) PO SCH ×2 (10:34→21:14)
[2022-06-28] MEDS: NICOTINE 14 MG/24 HOURS TOPICAL PATCH TD SCH (10:38)
[2022-06-28] MEDS: ATORVASTATIN CA 20 MG TABLET (FP) PO SCH (21:14)
[2022-06-28] MEDS: THIAMINE HCL 100 MG TABLET (FP) PO SCH (21:15)
[2022-06-28] MEDS: MELATONIN 5 MG TABLETS PO SCH (21:15)
[2022-06-29] MEDS: LACTULOSE 20 GM/30 ML UDC (FOR ORAL USE ONLY) PO SCH ×3 (06:05→21:11)
[2022-06-29] MEDS: PRENATAL VITAMINS W/ FOLIC ACID TABLET (FP) PO SCH (10:09)
[2022-06-29] MEDS: METOPROLOL TARTRATE 25 MG TABLET (FP) PO SCH ×2 (10:09→21:10)
[2022-06-29] MEDS: RIFAXIMIN 550 MG TABLET PO SCH ×2 (10:09→21:10)
[2022-06-29] MEDS: DARUNAVIR ETHANOLATE 800 MG TAB PO SCH (10:09)
[2022-06-29] MEDS: CLOPIDOGREL BISULFATE 75 MG TABLET (FP) PO SCH (10:09)
[2022-06-29] MEDS: ASPIRIN 81 MG CHEWABLE TABLETS PO SCH (10:10)
[2022-06-29] MEDS: ELVITEG/COB/EMTRI/TENOF (GENVOYA) TABLET PO SCH (10:10)
[2022-06-29] MEDS: NICOTINE 14 MG/24 HOURS TOPICAL PATCH TD SCH (10:10)
[2022-06-29] MEDS: THIAMINE HCL 100 MG TABLET (FP) PO SCH (21:10)
[2022-06-29] MEDS: ATORVASTATIN CA 20 MG TABLET (FP) PO SCH (21:10)
[2022-06-29] MEDS: MELATONIN 5 MG TABLETS PO SCH (21:10)
[2022-06-30] MEDS: LACTULOSE 20 GM/30 ML UDC (FOR ORAL USE ONLY) PO SCH ×3 (06:19→21:18)
[2022-06-30] MEDS: ASPIRIN 81 MG CHEWABLE TABLETS PO SCH (09:55)
[2022-06-30] MEDS: METOPROLOL TARTRATE 25 MG TABLET (FP) PO SCH ×2 (09:55→21:17)
[2022-06-30] MEDS: PRENATAL VITAMINS W/ FOLIC ACID TABLET (FP) PO SCH (09:55)
[2022-06-30] MEDS: CLOPIDOGREL BISULFATE 75 MG TABLET (FP) PO SCH (09:55)
[2022-06-30] MEDS: NICOTINE 14 MG/24 HOURS TOPICAL PATCH TD SCH (09:55)
[2022-06-30] MEDS: RIFAXIMIN 550 MG TABLET PO SCH ×2 (09:56→21:17)
[2022-06-30] MEDS: DARUNAVIR ETHANOLATE 800 MG TAB PO SCH (09:56)
[2022-06-30] MEDS: ELVITEG/COB/EMTRI/TENOF (GENVOYA) TABLET PO SCH (09:56)
[2022-06-30] MEDS: ATORVASTATIN CA 20 MG TABLET (FP) PO SCH (21:17)
[2022-06-30] MEDS: MELATONIN 5 MG TABLETS PO SCH (21:17)
[2022-06-30] MEDS: THIAMINE HCL 100 MG TABLET (FP) PO SCH (21:18)
[2022-07-01] MEDS: LACTULOSE 20 GM/30 ML UDC (FOR ORAL USE ONLY) PO SCH ×3 (05:59→21:02)
[2022-07-01] MEDS: CLOPIDOGREL BISULFATE 75 MG TABLET (FP) PO SCH (10:39)
[2022-07-01] MEDS: DARUNAVIR ETHANOLATE 800 MG TAB PO SCH (10:39)
[2022-07-01] MEDS: NICOTINE 14 MG/24 HOURS TOPICAL PATCH TD SCH (10:39)
[2022-07-01] MEDS: PRENATAL VITAMINS W/ FOLIC ACID TABLET (FP) PO SCH (10:39)
[2022-07-01] MEDS: METOPROLOL TARTRATE 25 MG TABLET (FP) PO SCH ×2 (10:39→21:01)
[2022-07-01] MEDS: RIFAXIMIN 550 MG TABLET PO SCH ×2 (10:39→21:03)
[2022-07-01] MEDS: ASPIRIN 81 MG CHEWABLE TABLETS PO SCH (10:39)
[2022-07-01] MEDS: ELVITEG/COB/EMTRI/TENOF (GENVOYA) TABLET PO SCH (10:40)
[2022-07-01] MEDS: ATORVASTATIN CA 20 MG TABLET (FP) PO SCH (21:01)
[2022-07-01] MEDS: THIAMINE HCL 100 MG TABLET (FP) PO SCH (21:01)
[2022-07-01] MEDS: MELATONIN 5 MG TABLETS PO SCH (21:02)
[2022-07-02] MEDS: LACTULOSE 20 GM/30 ML UDC (FOR ORAL USE ONLY) PO SCH ×3 (05:57→21:13)
[2022-07-02] MEDS: CLOPIDOGREL BISULFATE 75 MG TABLET (FP) PO SCH (09:55)
[2022-07-02] MEDS: METOPROLOL TARTRATE 25 MG TABLET (FP) PO SCH ×2 (09:55→21:13)
[2022-07-02] MEDS: PRENATAL VITAMINS W/ FOLIC ACID TABLET (FP) PO SCH (09:55)
[2022-07-02] MEDS: DARUNAVIR ETHANOLATE 800 MG TAB PO SCH (09:55)
[2022-07-02] MEDS: RIFAXIMIN 550 MG TABLET PO SCH ×2 (09:55→21:12)
[2022-07-02] MEDS: ASPIRIN 81 MG CHEWABLE TABLETS PO SCH (09:55)
[2022-07-02] MEDS: NICOTINE 14 MG/24 HOURS TOPICAL PATCH TD SCH (09:56)
[2022-07-02] MEDS: ELVITEG/COB/EMTRI/TENOF (GENVOYA) TABLET PO SCH (09:56)
[2022-07-02] MEDS: ATORVASTATIN CA 20 MG TABLET (FP) PO SCH (21:12)
[2022-07-02] MEDS: MELATONIN 5 MG TABLETS PO SCH (21:12)
[2022-07-02] MEDS: THIAMINE HCL 100 MG TABLET (FP) PO SCH (21:12)
[2022-07-03] MEDS: LACTULOSE 20 GM/30 ML UDC (FOR ORAL USE ONLY) PO SCH ×3 (06:19→21:08)
[2022-07-03] MEDS: RIFAXIMIN 550 MG TABLET PO SCH ×2 (09:54→21:08)
[2022-07-03] MEDS: DARUNAVIR ETHANOLATE 800 MG TAB PO SCH (09:54)
[2022-07-03] MEDS: ASPIRIN 81 MG CHEWABLE TABLETS PO SCH (09:54)
[2022-07-03] MEDS: ELVITEG/COB/EMTRI/TENOF (GENVOYA) TABLET PO SCH (09:54)
[2022-07-03] MEDS: CLOPIDOGREL BISULFATE 75 MG TABLET (FP) PO SCH (09:54)
[2022-07-03] MEDS: PRENATAL VITAMINS W/ FOLIC ACID TABLET (FP) PO SCH (09:54)
[2022-07-03] MEDS: NICOTINE 14 MG/24 HOURS TOPICAL PATCH TD SCH (09:55)
[2022-07-03] MEDS: METOPROLOL TARTRATE 25 MG TABLET (FP) PO SCH ×2 (10:34→21:08)
[2022-07-03] MEDS: THIAMINE HCL 100 MG TABLET (FP) PO SCH (21:07)
[2022-07-03] MEDS: ATORVASTATIN CA 20 MG TABLET (FP) PO SCH (21:08)
[2022-07-03] MEDS: MELATONIN 5 MG TABLETS PO SCH (21:08)
[2022-07-04] MEDS: LACTULOSE 20 GM/30 ML UDC (FOR ORAL USE ONLY) PO SCH ×3 (06:39→21:14)
[2022-07-04] MEDS: PRENATAL VITAMINS W/ FOLIC ACID TABLET (FP) PO SCH (10:07)
[2022-07-04] MEDS: ASPIRIN 81 MG CHEWABLE TABLETS PO SCH (10:07)
[2022-07-04] MEDS: ELVITEG/COB/EMTRI/TENOF (GENVOYA) TABLET PO SCH (10:07)
[2022-07-04] MEDS: METOPROLOL TARTRATE 25 MG TABLET (FP) PO SCH ×2 (10:07→21:14)
[2022-07-04] MEDS: RIFAXIMIN 550 MG TABLET PO SCH ×2 (10:07→21:14)
[2022-07-04] MEDS: CLOPIDOGREL BISULFATE 75 MG TABLET (FP) PO SCH (10:07)
[2022-07-04] MEDS: DARUNAVIR ETHANOLATE 800 MG TAB PO SCH (10:07)
[2022-07-04] MEDS: NICOTINE 14 MG/24 HOURS TOPICAL PATCH TD SCH (10:08)
[2022-07-04] MEDS: NICOTINE 10 MG CARTRIDGE (INHALER) IH PRN ×2 (10:08→16:39)
[2022-07-04] MEDS: MELATONIN 5 MG TABLETS PO SCH (21:13)
[2022-07-04] MEDS: ATORVASTATIN CA 20 MG TABLET (FP) PO SCH (21:14)
[2022-07-04] MEDS: THIAMINE HCL 100 MG TABLET (FP) PO SCH (21:14)
[2022-07-05] MEDS: LACTULOSE 20 GM/30 ML UDC (FOR ORAL USE ONLY) PO SCH ×3 (06:39→21:18)
[2022-07-05] MEDS: DARUNAVIR ETHANOLATE 800 MG TAB PO SCH (10:11)
[2022-07-05] MEDS: METOPROLOL TARTRATE 25 MG TABLET (FP) PO SCH ×2 (10:11→21:18)
[2022-07-05] MEDS: RIFAXIMIN 550 MG TABLET PO SCH ×2 (10:11→21:18)
[2022-07-05] MEDS: CLOPIDOGREL BISULFATE 75 MG TABLET (FP) PO SCH (10:11)
[2022-07-05] MEDS: ASPIRIN 81 MG CHEWABLE TABLETS PO SCH (10:11)
[2022-07-05] MEDS: PRENATAL VITAMINS W/ FOLIC ACID TABLET (FP) PO SCH (10:11)
[2022-07-05] MEDS: NICOTINE 10 MG CARTRIDGE (INHALER) IH PRN (10:12)
[2022-07-05] MEDS: NICOTINE 14 MG/24 HOURS TOPICAL PATCH TD SCH (10:12)
[2022-07-05] MEDS: ELVITEG/COB/EMTRI/TENOF (GENVOYA) TABLET PO SCH (10:13)
[2022-07-05] MEDS: ATORVASTATIN CA 20 MG TABLET (FP) PO SCH (21:18)
[2022-07-05] MEDS: MELATONIN 5 MG TABLETS PO SCH (21:18)
[2022-07-05] MEDS: THIAMINE HCL 100 MG TABLET (FP) PO SCH (21:18)
[2022-07-06] MEDS: LACTULOSE 20 GM/30 ML UDC (FOR ORAL USE ONLY) PO SCH ×3 (07:19→21:09)
[2022-07-06] MEDS: DARUNAVIR ETHANOLATE 800 MG TAB PO SCH (09:54)
[2022-07-06] MEDS: PRENATAL VITAMINS W/ FOLIC ACID TABLET (FP) PO SCH (09:54)
[2022-07-06] MEDS: CLOPIDOGREL BISULFATE 75 MG TABLET (FP) PO SCH (09:55)
[2022-07-06] MEDS: ASPIRIN 81 MG CHEWABLE TABLETS PO SCH (09:55)
[2022-07-06] MEDS: METOPROLOL TARTRATE 25 MG TABLET (FP) PO SCH ×2 (09:55→21:08)
[2022-07-06] MEDS: ELVITEG/COB/EMTRI/TENOF (GENVOYA) TABLET PO SCH (09:55)
[2022-07-06] MEDS: NICOTINE 10 MG CARTRIDGE (INHALER) IH PRN ×3 (09:56→21:10)
[2022-07-06] MEDS: NICOTINE 14 MG/24 HOURS TOPICAL PATCH TD SCH (09:56)
[2022-07-06] MEDS: ATORVASTATIN CA 20 MG TABLET (FP) PO SCH (21:08)
[2022-07-06] MEDS: THIAMINE HCL 100 MG TABLET (FP) PO SCH (21:08)
[2022-07-06] MEDS: MELATONIN 5 MG TABLETS PO SCH (22:09)
[2022-07-07] MEDS: LACTULOSE 20 GM/30 ML UDC (FOR ORAL USE ONLY) PO SCH ×3 (06:25→21:07)
[2022-07-07] MEDS: NICOTINE 14 MG/24 HOURS TOPICAL PATCH TD SCH (10:15)
[2022-07-07] MEDS: PRENATAL VITAMINS W/ FOLIC ACID TABLET (FP) PO SCH (10:15)
[2022-07-07] MEDS: METOPROLOL TARTRATE 25 MG TABLET (FP) PO SCH ×2 (10:16→21:08)
[2022-07-07] MEDS: ASPIRIN 81 MG CHEWABLE TABLETS PO SCH (10:16)
[2022-07-07] MEDS: DARUNAVIR ETHANOLATE 800 MG TAB PO SCH (10:16)
[2022-07-07] MEDS: CLOPIDOGREL BISULFATE 75 MG TABLET (FP) PO SCH (10:16)
[2022-07-07] MEDS: ELVITEG/COB/EMTRI/TENOF (GENVOYA) TABLET PO SCH (10:16)
[2022-07-07] MEDS: NICOTINE 10 MG CARTRIDGE (INHALER) IH PRN ×3 (10:16→21:09)
[2022-07-07] MEDS: ATORVASTATIN CA 20 MG TABLET (FP) PO SCH (21:07)
[2022-07-07] MEDS: MELATONIN 5 MG TABLETS PO SCH (21:08)
[2022-07-07] MEDS: THIAMINE HCL 100 MG TABLET (FP) PO SCH (21:08)
[2022-07-08] MEDS: LACTULOSE 20 GM/30 ML UDC (FOR ORAL USE ONLY) PO SCH (06:56)
[2022-07-08 07:01] VITALS: TEMP 98
[2022-07-08 09:08] VITALS: BP 122/86; PULSE 61; RESP 16
[2022-07-08] MEDS: ELVITEG/COB/EMTRI/TENOF (GENVOYA) TABLET PO SCH (09:22)
[2022-07-08] MEDS: PRENATAL VITAMINS W/ FOLIC ACID TABLET (FP) PO SCH (09:22)
[2022-07-08] MEDS: DARUNAVIR ETHANOLATE 800 MG TAB PO SCH (09:22)
[2022-07-08] MEDS: NICOTINE 14 MG/24 HOURS TOPICAL PATCH TD SCH (09:22)
[2022-07-08] MEDS: METOPROLOL TARTRATE 25 MG TABLET (FP) PO SCH (09:22)
[2022-07-08] MEDS: CLOPIDOGREL BISULFATE 75 MG TABLET (FP) PO SCH (09:22)
[2022-07-08] MEDS: ASPIRIN 81 MG CHEWABLE TABLETS PO SCH (09:22)
== END 2022-07-08 09:26 | disposition home or self-care (01) | DRG 895 ==
LOC: YASAS 08:13 → Y3W 13:17
PROVIDERS: ADMIT Allergy & Immunology; ATTEND Psychiatry & Neurology Pain Medicine
PROC: HZ42ZZZ Group Counseling for Substance Abuse Treatment, Cognitive-Behavioral (ICD-10-PCS; principal; 2022-06-25)
DX: F11.20 Opioid dependence, uncomplicated (principal); E72.20 Disorder of urea cycle metabolism, unspecified; F10.20 Alcohol dependence, uncomplicated; F17.210 Nicotine dependence, cigarettes, uncomplicated; F19.24 Other psychoactive substance dependence with psychoactive substance-induced mood disorder; Z21 Asymptomatic human immunodeficiency virus [HIV] infection status; E78.5 Hyperlipidemia, unspecified; N28.9 Disorder of kidney and ureter, unspecified; I25.118 Atherosclerotic heart disease of native coronary artery with other forms of angina pectoris; I10 Essential (primary) hypertension; Z95.5 Presence of coronary angioplasty implant and graft; Z86.19 Personal history of other infectious and parasitic diseases
CPT/HCPCS: 36415; 80053; 81003; 82140; 85027; 86780; 86803; 87522; C9803-CS; U0003; U0005

== ENCOUNTER 2022-11-05 11:37 | Inpatient (IN) | payer OTHER ==
[2022-11-05 12:40] VITALS: BMI 26.6
[2022-11-05] MEDS ORDERED: BISMUTH SUBSALICYLATE 524 MG/30 ML PO PRN (14:59)
[2022-11-05] MEDS ORDERED: cloNIDine HCL 0.1 MG TABLET PO ONE (14:59)
[2022-11-05] MEDS ORDERED: BENZOCAINE/MENTHOL (CHLORASEPTIC ) LOZENGE MM PRN (14:59)
[2022-11-05] MEDS ORDERED: IBUPROFEN 400 MG TABLET (FP) PO PRN (14:59)
[2022-11-05] MEDS ORDERED: guaiFENesin 600 MG TABLET.ER (FP) PO PRN (14:59)
[2022-11-05] MEDS ORDERED: DICYCLOMINE HCL 10 MG CAPSULE PO PRN (14:59)
[2022-11-05] MEDS ORDERED: NALOXONE HCL (KLOXXADO) 8 MG SPRAY NS PRN (14:59)
[2022-11-05] MEDS ORDERED: IBUPROFEN 600 MG TABLET (FP) PO PRN (14:59)
[2022-11-05] MEDS ORDERED: NALOXONE HCL 0.4 MG/ML VIAL IM PRN (14:59)
[2022-11-05] MEDS ORDERED: MAGNESIUM HYDROX 2400MG/30ML ORAL SUSPENSION 30 ML CUP PO PRN (14:59)
[2022-11-05] MEDS ORDERED: POLYETHYLENE GLYCOL (HEALTHYLAX) 3350 17 GM PACKET PO PRN (14:59)
[2022-11-05] MEDS ORDERED: LOPERAMIDE HCL 2 MG CAPSULE PO PRN (14:59)
[2022-11-05] MEDS ORDERED: ONDANSETRON *ODT* 4 MG TABLET SL PRN (14:59)
[2022-11-05] MEDS ORDERED: diazePAM 5 MG TABLET PO PRN (14:59)
[2022-11-05] MEDS ORDERED: MAG HYDROX/AL HYDROX/SIMETH 30 ML UNIT-DOSE CUP PO PRN (14:59)
[2022-11-05] MEDS ORDERED: hydrOXYzine PAMOATE 25 MG CAPSULE (FP) PO PRN (14:59)
[2022-11-05] MEDS ORDERED: BUPRENORPHINE HCL 150 MCG, BUPRENORPHINE HCL 75 MCG BC ONE (14:59)
[2022-11-05] MEDS ORDERED: ACETAMINOPHEN 325 MG TABLET (FP) PO PRN (14:59)
[2022-11-05] MEDS ORDERED: BUPRENORPHINE HCL 150 MCG, BUPRENORPHINE HCL 75 MCG BC PRN (14:59)
[2022-11-05] MEDS ORDERED: METHOCARBAMOL 500 MG TABLET PO PRN (14:59)
[2022-11-05] MEDS ORDERED: BENZONATATE 200 MG CAPSULE PO PRN (14:59)
[2022-11-05] MEDS ORDERED: NITROGLYCERIN SUBLINGUAL 1/150 0.4 MG TAB SL PRN (15:02)
[2022-11-05] MEDS ORDERED: BUPRENORPHINE HCL 150 MCG FILM BC ONE (17:58)
[2022-11-05] MEDS ORDERED: BUPRENORPHINE HCL 75 MCG FILM BC ONE (17:58)
[2022-11-05] MEDS ORDERED: cloNIDine HCL 0.1 MG TABLET ONE (17:59)
[2022-11-05] MEDS: PRENATAL VITAMINS W/ FOLIC ACID TABLET (FP) PO SCH (18:19)
[2022-11-05] MEDS ORDERED: cloNIDine HCL 0.1 MG TABLET PO PRN (18:59)
[2022-11-05] MEDS: ATORVASTATIN CA 20 MG TABLET (FP) PO SCH (22:42)
[2022-11-05] MEDS: MELATONIN 5 MG TABLETS PO SCH (22:42)
[2022-11-05] MEDS: FLUOCINONIDE 0.05% CREAM (15 GM TUBE) TP SCH (22:42)
[2022-11-05] MEDS: FAMOTIDINE 20 MG TABLET PO SCH (22:42)
[2022-11-05] MEDS: THIAMINE HCL 100 MG TABLET (FP) PO SCH (22:43)
[2022-11-05] MEDS: METOPROLOL TARTRATE 25 MG TABLET (FP) PO SCH (22:54)
[2022-11-06] MEDS ORDERED: BUPRENORPHINE HCL 150 MCG, BUPRENORPHINE HCL 75 MCG BC PRN
[2022-11-06] MEDS: BUPRENORPHINE HCL 150 MCG, BUPRENORPHINE HCL 75 MCG BC SCH ×2 (06:46→17:36)
[2022-11-06] MEDS ORDERED: DARUNAVIR ETHANOLATE 800 MG TAB PO SCH (08:00)
[2022-11-06] MEDS: PRENATAL VITAMINS W/ FOLIC ACID TABLET (FP) PO SCH (10:57)
[2022-11-06] MEDS: BICTEGRAV/EMTRICIT/TENOFOV (BIKTARVY) 50-200-25 MG TABLET PO SCH (10:58)
[2022-11-06] MEDS: CLOPIDOGREL BISULFATE 75 MG TABLET (FP) PO SCH (10:58)
[2022-11-06] MEDS: FLUOCINONIDE 0.05% CREAM (15 GM TUBE) TP SCH ×2 (10:58→21:57)
[2022-11-06] MEDS: METOPROLOL TARTRATE 25 MG TABLET (FP) PO SCH ×2 (10:58→21:58)
[2022-11-06] MEDS: ASPIRIN 81 MG CHEWABLE TABLETS PO SCH (10:58)
[2022-11-06] MEDS: FAMOTIDINE 20 MG TABLET PO SCH (21:57)
[2022-11-06] MEDS: MELATONIN 5 MG TABLETS PO SCH (21:58)
[2022-11-06] MEDS: THIAMINE HCL 100 MG TABLET (FP) PO SCH (21:58)
[2022-11-06] MEDS: ATORVASTATIN CA 20 MG TABLET (FP) PO SCH (21:58)
[2022-11-07] MEDS: BUPRENORPHINE HCL 450 MCG FILM BC SCH ×2 (06:02→17:14)
[2022-11-07] MEDS: BICTEGRAV/EMTRICIT/TENOFOV (BIKTARVY) 50-200-25 MG TABLET PO SCH (07:41)
[2022-11-07] MEDS: PRENATAL VITAMINS W/ FOLIC ACID TABLET (FP) PO SCH (10:50)
[2022-11-07] MEDS: ASPIRIN 81 MG CHEWABLE TABLETS PO SCH (10:51)
[2022-11-07] MEDS: FLUOCINONIDE 0.05% CREAM (15 GM TUBE) TP SCH ×2 (10:51→22:20)
[2022-11-07] MEDS: METOPROLOL TARTRATE 25 MG TABLET (FP) PO SCH ×2 (10:51→22:20)
[2022-11-07] MEDS: CLOPIDOGREL BISULFATE 75 MG TABLET (FP) PO SCH (10:51)
[2022-11-07] MEDS ORDERED: diazePAM 5 MG TABLET PO PRN (11:39)
[2022-11-07] MEDS: THIAMINE HCL 100 MG TABLET (FP) PO SCH (22:20)
[2022-11-07] MEDS: MELATONIN 5 MG TABLETS PO SCH (22:20)
[2022-11-07] MEDS: ATORVASTATIN CA 20 MG TABLET (FP) PO SCH (22:20)
[2022-11-07] MEDS: FAMOTIDINE 20 MG TABLET PO SCH (22:20)
[2022-11-08] MEDS: BUPRENORPHINE/NALOXONE 4 MG/1 MG FILM PACKET SL SCH ×2 (05:21→18:03)
[2022-11-08] MEDS: BICTEGRAV/EMTRICIT/TENOFOV (BIKTARVY) 50-200-25 MG TABLET PO SCH (07:13)
[2022-11-08] MEDS: PRENATAL VITAMINS W/ FOLIC ACID TABLET (FP) PO SCH (10:56)
[2022-11-08] MEDS: ASPIRIN 81 MG CHEWABLE TABLETS PO SCH (10:56)
[2022-11-08] MEDS: CLOPIDOGREL BISULFATE 75 MG TABLET (FP) PO SCH (10:56)
[2022-11-08] MEDS: METOPROLOL TARTRATE 25 MG TABLET (FP) PO SCH ×2 (10:57→22:06)
[2022-11-08] MEDS: FLUOCINONIDE 0.05% CREAM (15 GM TUBE) TP SCH ×2 (10:57→22:07)
[2022-11-08] MEDS: MELATONIN 5 MG TABLETS PO SCH (22:06)
[2022-11-08] MEDS: THIAMINE HCL 100 MG TABLET (FP) PO SCH (22:06)
[2022-11-08] MEDS: FAMOTIDINE 20 MG TABLET PO SCH (22:07)
[2022-11-08] MEDS: ATORVASTATIN CA 20 MG TABLET (FP) PO SCH (22:07)
[2022-11-09] MEDS ORDERED: BUPRENORPHINE/NALOXONE 8 MG/2 MG FILM PACKET SL ONE (06:00)
[2022-11-09 06:08] VITALS: RESP 18
[2022-11-09] MEDS: BICTEGRAV/EMTRICIT/TENOFOV (BIKTARVY) 50-200-25 MG TABLET PO SCH (07:00)
[2022-11-09 09:18] VITALS: BP 124/65; PULSE 54; TEMP 97.5
[2022-11-09] MEDS: ASPIRIN 81 MG CHEWABLE TABLETS PO SCH (09:42)
[2022-11-09] MEDS: CLOPIDOGREL BISULFATE 75 MG TABLET (FP) PO SCH (09:42)
[2022-11-09] MEDS: PRENATAL VITAMINS W/ FOLIC ACID TABLET (FP) PO SCH (09:43)
[2022-11-09] MEDS: METOPROLOL TARTRATE 25 MG TABLET (FP) PO SCH (09:43)
[2022-11-09] MEDS: FLUOCINONIDE 0.05% CREAM (15 GM TUBE) TP SCH (09:44)
== END 2022-11-09 10:02 | disposition home or self-care (01) | DRG 897 ==
LOC: YASAS 11:37 → Y6N 15:47
PROVIDERS: ADMIT Allergy & Immunology; ATTEND Allergy & Immunology
PROC: HZ2ZZZZ Detoxification Services for Substance Abuse Treatment (ICD-10-PCS; principal; 2022-11-05)
DX: F11.23 Opioid dependence with withdrawal (principal); F10.10 Alcohol abuse, uncomplicated; F17.213 Nicotine dependence, cigarettes, with withdrawal; Z21 Asymptomatic human immunodeficiency virus [HIV] infection status; E78.1 Pure hyperglyceridemia; I25.118 Atherosclerotic heart disease of native coronary artery with other forms of angina pectoris; I10 Essential (primary) hypertension; I25.2 Old myocardial infarction; Z95.5 Presence of coronary angioplasty implant and graft; Z86.19 Personal history of other infectious and parasitic diseases; Z99.89 Dependence on other enabling machines and devices
CPT/HCPCS: 87635

== ENCOUNTER 2022-12-13 16:40 | Inpatient (IN) | payer OTHER ==
[2022-12-13 19:15] VITALS: BMI 26.4
[2022-12-14] MEDS ORDERED: NALOXONE HCL 0.4 MG/ML VIAL IM PRN (08:27)
[2022-12-14] MEDS ORDERED: guaiFENesin 600 MG TABLET.ER (FP) PO PRN (08:27)
[2022-12-14] MEDS ORDERED: BENZOCAINE/MENTHOL (CHLORASEPTIC ) LOZENGE MM PRN (08:27)
[2022-12-14] MEDS ORDERED: POLYETHYLENE GLYCOL (HEALTHYLAX) 3350 17 GM PACKET PO PRN (08:27)
[2022-12-14] MEDS ORDERED: ACETAMINOPHEN 325 MG TABLET (FP) PO PRN (08:27)
[2022-12-14] MEDS ORDERED: MAGNESIUM HYDROX 2400MG/30ML ORAL SUSPENSION 30 ML CUP PO PRN (08:27)
[2022-12-14] MEDS ORDERED: BENZONATATE 200 MG CAPSULE PO PRN (08:27)
[2022-12-14] MEDS ORDERED: ONDANSETRON *ODT* 4 MG TABLET SL PRN (08:27)
[2022-12-14] MEDS ORDERED: DICYCLOMINE HCL 10 MG CAPSULE PO PRN (08:27)
[2022-12-14] MEDS ORDERED: NALOXONE HCL (KLOXXADO) 8 MG SPRAY NS PRN (08:27)
[2022-12-14] MEDS ORDERED: LOPERAMIDE HCL 2 MG CAPSULE PO PRN (08:27)
[2022-12-14] MEDS ORDERED: hydrOXYzine PAMOATE 25 MG CAPSULE (FP) PO PRN (08:27)
[2022-12-14] MEDS ORDERED: IBUPROFEN 400 MG TABLET (FP) PO PRN (08:27)
[2022-12-14] MEDS ORDERED: BISMUTH SUBSALICYLATE 524 MG/30 ML PO PRN (08:27)
[2022-12-14] MEDS ORDERED: MAG HYDROX/AL HYDROX/SIMETH 30 ML UNIT-DOSE CUP PO PRN (08:27)
[2022-12-14] MEDS ORDERED: IBUPROFEN 600 MG TABLET (FP) PO PRN (08:27)
[2022-12-14] MEDS ORDERED: NICOTINE POLACRILEX 2 MG GUM BUC PRN (08:27)
[2022-12-14] MEDS: PRENATAL VITAMINS W/ FOLIC ACID TABLET (FP) PO SCH (09:20)
[2022-12-14] MEDS: NICOTINE 14 MG/24 HOURS TOPICAL PATCH TD SCH (09:20)
[2022-12-14] MEDS ORDERED: PRENATAL VITAMINS W/ FOLIC ACID TABLET (FP) PO ONE (09:24)
[2022-12-14] MEDS ORDERED: NICOTINE 14 MG/24 HOURS TOPICAL PATCH TD ONE (09:24)
[2022-12-14] MEDS ORDERED: NITROGLYCERIN SUBLINGUAL 1/150 0.4 MG TAB SL PRN (19:46)
[2022-12-14] MEDS ORDERED: cloNIDine HCL 0.1 MG TABLET PO PRN (19:46)
[2022-12-14] MEDS ORDERED: methaDONE HCL 10 MG TABLET (FOR DETOX USE ONLY) PO ONE (19:46)
[2022-12-14] MEDS: ATORVASTATIN CA 20 MG TABLET (FP) PO SCH (22:15)
[2022-12-14] MEDS: THIAMINE HCL 100 MG TABLET (FP) PO SCH (22:18)
[2022-12-14] MEDS: MELATONIN 5 MG TABLETS PO SCH (22:18)
[2022-12-14] MEDS: METOPROLOL TARTRATE 25 MG TABLET (FP) PO SCH (23:15)
[2022-12-15] MEDS: PRENATAL VITAMINS W/ FOLIC ACID TABLET (FP) PO SCH (10:23)
[2022-12-15] MEDS: METOPROLOL TARTRATE 25 MG TABLET (FP) PO SCH ×2 (10:23→22:38)
[2022-12-15] MEDS: ASPIRIN 81 MG CHEWABLE TABLETS PO SCH (10:23)
[2022-12-15] MEDS: NICOTINE 14 MG/24 HOURS TOPICAL PATCH TD SCH (10:24)
[2022-12-15] MEDS: CLOPIDOGREL BISULFATE 75 MG TABLET (FP) PO SCH (10:25)
[2022-12-15] MEDS: MELATONIN 5 MG TABLETS PO SCH (22:38)
[2022-12-15] MEDS: ATORVASTATIN CA 20 MG TABLET (FP) PO SCH (22:38)
[2022-12-15] MEDS: FAMOTIDINE 20 MG TABLET PO SCH (22:38)
[2022-12-15] MEDS: THIAMINE HCL 100 MG TABLET (FP) PO SCH (22:38)
[2022-12-16] MEDS ORDERED: methaDONE HCL 10 MG TABLET (FOR DETOX USE ONLY) PO ONE (10:00)
[2022-12-16] MEDS: METOPROLOL TARTRATE 25 MG TABLET (FP) PO SCH ×2 (10:34→23:17)
[2022-12-16] MEDS: ASPIRIN 81 MG CHEWABLE TABLETS PO SCH (10:34)
[2022-12-16] MEDS: CLOPIDOGREL BISULFATE 75 MG TABLET (FP) PO SCH (10:34)
[2022-12-16] MEDS: PRENATAL VITAMINS W/ FOLIC ACID TABLET (FP) PO SCH (10:34)
[2022-12-16] MEDS: NICOTINE 14 MG/24 HOURS TOPICAL PATCH TD SCH (10:37)
[2022-12-16] MEDS: FAMOTIDINE 20 MG TABLET PO SCH (22:35)
[2022-12-16] MEDS: ATORVASTATIN CA 20 MG TABLET (FP) PO SCH (22:35)
[2022-12-16] MEDS: THIAMINE HCL 100 MG TABLET (FP) PO SCH (22:36)
[2022-12-16] MEDS: MELATONIN 5 MG TABLETS PO SCH (23:17)
[2022-12-17] MEDS: PRENATAL VITAMINS W/ FOLIC ACID TABLET (FP) PO SCH (10:53)
[2022-12-17] MEDS: ASPIRIN 81 MG CHEWABLE TABLETS PO SCH (10:53)
[2022-12-17] MEDS: METOPROLOL TARTRATE 25 MG TABLET (FP) PO SCH ×2 (10:54→22:47)
[2022-12-17] MEDS: NICOTINE 14 MG/24 HOURS TOPICAL PATCH TD SCH (10:54)
[2022-12-17] MEDS: CLOPIDOGREL BISULFATE 75 MG TABLET (FP) PO SCH (10:54)
[2022-12-17 17:26] VITALS: RESP 16
[2022-12-17] MEDS: ATORVASTATIN CA 20 MG TABLET (FP) PO SCH (22:46)
[2022-12-17] MEDS: THIAMINE HCL 100 MG TABLET (FP) PO SCH (22:46)
[2022-12-17] MEDS: FAMOTIDINE 20 MG TABLET PO SCH (22:46)
[2022-12-17] MEDS: MELATONIN 5 MG TABLETS PO SCH (22:48)
[2022-12-18 06:22] VITALS: BP 122/76; PULSE 57; TEMP 98.4
[2022-12-18] MEDS: CLOPIDOGREL BISULFATE 75 MG TABLET (FP) PO SCH (09:00)
[2022-12-18] MEDS: ASPIRIN 81 MG CHEWABLE TABLETS PO SCH (09:00)
[2022-12-18] MEDS: METOPROLOL TARTRATE 25 MG TABLET (FP) PO SCH (09:01)
[2022-12-18] MEDS: NICOTINE 14 MG/24 HOURS TOPICAL PATCH TD SCH (09:01)
[2022-12-18] MEDS: PRENATAL VITAMINS W/ FOLIC ACID TABLET (FP) PO SCH (09:01)
== END 2022-12-18 10:28 | disposition home or self-care (01) | DRG 897 ==
LOC: YASAS 16:40 → Y6N 12-14 07:09 → UNDOADMIN 12-14 07:09 → Y6N 12-14 14:36
PROVIDERS: ADMIT Allergy & Immunology; ATTEND Allergy & Immunology
PROC: HZ2ZZZZ Detoxification Services for Substance Abuse Treatment (ICD-10-PCS; principal; 2022-12-14)
DX: F11.23 Opioid dependence with withdrawal (principal); F19.282 Other psychoactive substance dependence with psychoactive substance-induced sleep disorder; F17.210 Nicotine dependence, cigarettes, uncomplicated; Z21 Asymptomatic human immunodeficiency virus [HIV] infection status; E78.5 Hyperlipidemia, unspecified; I25.10 Atherosclerotic heart disease of native coronary artery without angina pectoris; I10 Essential (primary) hypertension; I25.2 Old myocardial infarction; Z95.5 Presence of coronary angioplasty implant and graft; Z86.19 Personal history of other infectious and parasitic diseases; Z99.89 Dependence on other enabling machines and devices; Z59.01 Sheltered homelessness
CPT/HCPCS: 87635; Q0162

== ENCOUNTER 2022-12-14 00:02 | Emergency (ER) | payer OTHER ==
[2022-12-14 00:10] VITALS: BP 117/64; PULSE 68; RESP 16; TEMP 97.8; BMI 22.4
[2022-12-14 02:15] LABS: EOS % 4.2 % (0-4.5); HEMATOCRIT 36.8 % (35.4-49); HEMOGLOBIN 12.5 GM/dL (11.7-16.9); LYMPH % 36.8 % (8-40); MCH 29.4 pg (25.7-33.7); MCHC 33.9 g/dl (32.0-35.9); MEAN CELL VOLUME 86.8 fl (80-96); MEAN PLT VOLUME 8.6 fl (7.5-11.1); MONO % 16.3 % (3.8-10.2); NEUT % 41.7 % (42.8-82.8); PLATELET COUNT 244 10^3/uL (134-434); RBC 4.24 M/mm3 (4.00-5.60); RDW 13.6 % (11.9-15.9); WHITE BLOOD COUNT 4.4 K/mm3 (4.0-10.0)
[2022-12-14 02:35] LABS: CHLORIDE 106 mmol/L (98-107)
[2022-12-14 02:38] LABS: ALBUMIN 3.2 g/dl (3.4-5.0); CALCIUM 8.4 mg/dL (8.5-10.1)
[2022-12-14 02:39] LABS: BLOOD UREA NITROGEN 13.4 mg/dL (7-18); CO2 28 mmol/L (21-32); GLUCOSE,RANDOM 86 mg/dL (74-106)
[2022-12-14 02:42] LABS: CREATININE 1.3 mg/dL (0.55-1.3); SGOT/AST 103 U/L (15-37)
[2022-12-14 02:43] LABS: TOT PROT 7.9 g/dl (6.4-8.2)
[2022-12-14 02:44] LABS: ALK PHOS 92 U/L (45-117)
[2022-12-14 02:47] LABS: N-TERMINAL BNP 433.9 pg/ml (5-125)
[2022-12-14 02:56] LABS: ANION GAP 3 MMOL/L (8-16); BILIRUBIN,TOTAL 0.4 mg/dL (0.2-1); SGPT/ALT 41 U/L (13-61); SODIUM 137 mmol/L (136-145)
== END 2022-12-14 04:03 | disposition home or self-care (01) ==
LOC: JER 00:02
DX: R22.43 Localized swelling, mass and lump, lower limb, bilateral (principal)
CPT/HCPCS: 0241U-QW; 36415; 71045-TC-FY; 80053; 83880; 84484; 85025; 93005; 93010; 93970-TC; 99285-25